=== PATIENT | female | born 1935 | race Caucasian/White ===

== ENCOUNTER 2021-12-26 12:35 | Emergency (ER) | payer MEDICARE, OTHER, SELFPAY ==
[2021-12-26 12:40] VITALS: BP 116/81; PULSE 75; RESP 16; TEMP 36.6; O2SAT 93; BMI 28.3
--- NOTE | 2021-12-26 12:59 | ECG_ITS ---
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 Measurements Intervals [place] Rate: 75 P: 67 OR: 158 QRS: -63 QRSD: 84 T: 17 QT: 413 QTc: 462 Interpretive Statements SINUS RHYTHM PATTERN CONSISTENT WITH PULMONARY DISEASE LEFT ANTERIOR FASCICULAR BLOCK [QRS AXIS <= -45, QR IN I, RS IN II] No previous ECG available for comparison Electronically Signed On 12-26-2021 19:25:47 CDT by Ayaka Gomez M.D. [id number]
--- NOTE | 2021-12-26 12:59 | CT_ITS ---
WS: [id number] CT HEAD TECHNIQUE: Noncontrast CT of the head obtained from the skullbase to the vertex. CLINICAL INFORMATION: Symptoms of Acute Stroke COMPARISON: MRI and CT 2010 DLP: 1081.[address] scans at [facility] use at least one of these dose optimization techniques: automated e xposure control; mA and/or kV adjustment per patient size (includes targeted exams where dose is matc hed to clinical indication); or iterative reconstruction. FINDINGS: No evidence of intracranial hemorrhage or mass effect. Ventricular system and basal cisterns are vázquez nt. Moderate small vessel changes with moderate parenchymal volume loss. Chronic lacunar infarcts in the basal ganglia. Chronic appearing intracranial vascular calcification No extra-axial fluid collec tions. Paranasal sinuses and mastoid air cells are well aerated. .Normal visualized soft tissues. CT/CT head wo con* [id number] IMPRESSION: 1. No evidence of intracranial hemorrhage or mass effect. 2. Moderate small vessel changes with moderate parenchymal volume loss. 3. Dense intracranial vascular calcification. 4. No acute intracranial findings. Notified Galileo Choudhary DO at 12/26/2021 1:50PM.
[2021-12-26 13:09] LABS: Basophils # 0.1 10^3/uL (0.0-0.1); Eosinophils # 0.5 10^3/uL (0.0-0.8); Eosinophils % 6.9 %; Hematocrit 35.8 % (37.0-47.0); Hemoglobin 11.4 g/dL (11.5-15.3); Lymphocytes # 1.5 10^3/uL (0.8-4.8); Lymphocytes % 20.7 %; Mean Corpuscular HGB Conc 31.8 g/dL (30.0-36.0); Mean Corpuscular Volume 97.3 fl (81-99); Mean Platelet Volume 11.6 fL (7.4-10.4); Monocytes # 0.5 10^3/uL (0.2-0.9); Monocytes % 7.1 %; Neutrophils # 4.61 10^3/uL (1.8-7.7); Nucleated Red Blood Cells % 0 %; Platelet Count 161 10^3/cmm (130-400); Red Blood Count 3.68 10^6/uL (4.1-5.3); Red Cell Distribution Width 12.7 % (12.1-15.1); White Blood Count 7.2 10^3/uL (4.0-10.0)
--- NOTE | 2021-12-26 13:09 | ED_ITS ---
HPI - Syncope General: Chief Complaint: Syncope Stated Complaint: N Time Seen by Provider: 12/26/21 12:35 Source: patient Mode of arrival: EMS Limitations: altered mental status History of Present Illness: 86-year-old female who [facility] the emergency room [facility] prison after a near syncopal episode outside of the prison. She is mildly demented she tells me she was at work when this happened. She also tells me she previously had a stroke and has limited use of her left leg. Were calling to confirm if this is an old deficit or new. I did find in the old records that she previously had a left hip fracture and had ORIF. She denies any pain or discomfort now. Her only complaint is that she is cold she denies shortness of breath or chest pain. She has no significant deficit beyond the weakness that is in her left leg. MD complaint: loss of consciousness and almost passed out Treatments prior to arrival: none Course Vital Signs: Vital signs: Vital Signs Temperature 98 F 12/26/21 12:40 Pulse Rate 75 12/26/21 12:40 Respiratory Rate 16 12/26/21 12:40 Blood Pressure 116/81 12/26/21 12:40 Pulse Oximetry 93 12/26/21 12:40 MDM - Syncope Medical Decision Making Suspect patient had a syncopal episode while outside likely due to heat exposure. We will go ahead and discharge her back to the prison no change in medications at this time. Incidental finding of a laryngeal mass which we will refer her to ENT for. Lab Data : 12/26/21 12:46 12/26/21 12:[address] 12/26/21 12:59 IMPRESSION: 1. No evidence of intracranial hemorrhage or mass effect. 2. Moderate small vessel changes with moderate parenchymal volume loss. 3. Dense intracranial vascular calcification. 4. No acute intracranial findings. Notified Galileo Choudhary DO at 12/26/2021 1:50PM. Laboratory Results WBC 7.2 10^3/uL (4.0-10.0) 12/26/21 12:46 RBC 3.68 10^6/uL (4.1-5.3) L 12/26/21 12:46 Hgb 11.4 g/dL (11.5-15.3) L 12/26/21 12:46 Hct 35.8 % (37.0-47.0) L 12/26/21 12:46 MCV 97.3 fl (81-99) 12/26/21 12:46 MCH 31.0 pg (28.0-34.0) 12/26/21 12:46 MCHC 31.8 g/dL (30.0-36.0) 12/26/21 12:46 RDW 12.7 % (12.1-15.1) 12/26/21 12:46 Plt Count 161 10^3/cmm (130-400) 12/26/21 12:46 MPV 11.6 fL (7.4-10.4) H 12/26/21 12:46 Neut % (Auto) 64.0 % 12/26/21 12:46 Lymph % (Auto) 20.7 % 12/26/21 12:46 [place] % (Auto) 7.1 % 12/26/21 12:46 Eos % (Auto) 6.9 % 12/26/21 12:46 Baso % (Auto) 1.0 % 12/26/21 12:46 Neut # (Auto) 4.61 10^3/uL (1.8-7.7) 12/26/21 12:46 Lymph # (Auto) 1.5 10^3/uL (0.8-4.8) 12/26/21 12:46 [place] # (Auto) 0.5 10^3/uL (0.2-0.9) 12/26/21 12:46 Eos # (Auto) 0.5 10^3/uL (0.0-0.8) 12/26/21 12:46 Baso # (Auto) 0.1 10^3/uL (0.0-0.1) 12/26/21 12:46 Nucleated RBC % (auto) 0 % 12/26/21 12:46 Nucleated RBCs # 0.0 /100WBC 12/26/21 12:46 Sodium 143 mmol/L (136-145) 12/26/21 12:46 Potassium 3.7 mmol/L (3.5-5.1) 12/26/21 12:46 Chloride 111 mmol/L (98-107) H 12/26/21 12:46 Carbon Dioxide 23 mmol/L (22-29) 12/26/21 12:46 Anion Gap 12.7 (5-19) 12/26/21 12:46 BUN 20 mg/dL (8-23) 12/26/21 12:46 Creatinine 1.0 mg/dL (0.5-0.9) H 12/26/21 12:46 GFR Calculation Not Reportable 12/26/21 12:46 Glucose 104 mg/dL (65-115) 12/26/21 12:46 POC Glucose 139 mg/dL (70-110) H 12/26/21 13:41 Calculated Osmolality 299 mOsm/kg (285-295) H 12/26/21 12:46 Calcium 8.1 mg/dL (8.5-10.5) L 12/26/21 12:46 Total Bilirubin 0.3 mg/dL (0.15-1.2) 12/26/21 12:46 AST 25 U/L (0-32) 12/26/21 12:46 ALT 15 U/L (0-33) 12/26/21 12:46 Alkaline Phosphatase 93 IU/L (35-105) 12/26/21 12:46 Total Protein 6.3 g/dL (6.6-8.7) L 12/26/21 12:46 Albumin 3.1 g/dL (3.5-5.2) L 12/26/21 12:46 Globulin 3.2 g/dL (1.3-4.6) 12/26/21 12:46 Discharge Plan Discharge Patient Disposition: Home Clinical Impression: Syncope, Laryngeal mass, Dementia Condition: Stable Prescriptions: No Action Multi-Vitamin Tablet 1 tab PO QAM 0RF atorvastatin 40 mg tablet 40 mg PO QPM 0RF acetaminophen 325 mg Tablet 325 mg PO Q6H PRN (Reason: Pain) 0RF [place] 5-325 mg Tablet 1 tab PO Q6H PRN (Reason: Pain) 0RF clonazepam 1 mg tablet 1 mg PO QPM 0RF Aspir-Low 81 mg Tablet,Delayed Release (Dr/Ec) 81 mg PO DAILY 0RF levothyroxine 100 mcg tablet 100 mcg PO DAILY 0RF Milk of Magnesia 400 mg/5 mL Suspension 30 ml PO DAILY PRN (Reason: Constipation) 0RF pantoprazole 40 mg tablet,delayed release (DR/EC) 40 mg PO DAILY 0RF nitrofurantoin macrocrystal 100 mg capsule 100 mg PO QPM 0RF lidocaine 5 % Adhesive Patch,Medicated 1 patch TOPICAL 2XD 0RF Rx Instructions: leave on most painful area for up to 12 hrs bisacodyl 5 mg Tablet,Delayed Release (Dr/Ec) 5 mg PO DAILY PRN (Reason: Constipation) 0RF Remeron 15 mg Tablet 7.5 mg PO DAILY 0RF Miralax 17 gram/dose Powder 4 g PO DAILY 0RF Acidophilus Capsule 100 mg PO QPM PRN (Reason: Constipation) 0RF melatonin 1 mg Tablet 1 mg PO QPM 0RF Fish Oil 500 mg Capsule 500 mg PO DAILY 0RF cholecalciferol (vitamin D3) 125 mcg (5,000 unit) Tablet 125 mcg PO DAILY 0RF Discharge Orders: Discharge ED (Routine); Ordered 12/26/21 Ordered By: Galileo Choudhary Discharge Diet: Usual diet Discharge Activity: Resume usual activity Activity Restrictions/Additional Instructions: There is no evidence of acute stroke on any of your scans you will be discharged home with the same medications. Suspect that the episode you experience was a syncopal episode. Incidental finding of a mass within the voicebox will make arrangements for you to see ENT to follow-up on this. Coding Level of Care Code ED Dental Sales Representative for Miri Russell NIH stroke score NIHSS Level Of Consciousness - 1a: 0 Level Of Consciousness Questions - 1b: Both Correct Level Of Consciousness Commands - 1c: One Correct Best Gaze - 2: Normal Visual [place] - 3: No Visual Loss Facial Palsy - 4: Normal Motor Arm Right - 5: No Drift Motor Arm Left - 5: No Drift Motor Leg Right - 6: No Drift Motor Leg Left - 6: Drift (Weakness) Limb Ataxia - 7: Present In One Limb Sensory - 8: Normal Best Language - 9: No Aphasia Dysarthia - 10: Normal Extinction And Inattention - 11: 0 Score Total Score: 3
--- NOTE | 2021-12-26 13:20 | PC.NURSE ---
PT PLACED ON CONTINUOUS NIBP, SPO2, AND CM
[2021-12-26 13:21] LABS: Alanine Aminotransferase 15 U/L (0-33); Albumin Level 3.1 g/dL (3.5-5.2); Alkaline Phosphatase 93 IU/L (35-105); Anion Gap 12.7 (5-19); Aspartate Amino Transferase 25 U/L (0-32); Blood Urea Nitrogen 20 mg/dL (8-23); Calcium 8.1 mg/dL (8.5-10.5); Carbon Dioxide 23 mmol/L (22-29); Chloride 111 mmol/L (98-107); Globulin 3.2 g/dL (1.3-4.6); Glucose 104 mg/dL (65-115); Osmolality Calculated 299 mOsm/kg (285-295); Potassium 3.7 mmol/L (3.5-5.1); Sodium 143 mmol/L (136-145); Total Bilirubin 0.3 mg/dL (0.15-1.2); Total Protein 6.3 g/dL (6.6-8.7)
[2021-12-26 13:23] VITALS: BP 120/86; RESP 18; O2SAT 96
[2021-12-26 13:45] LABS: Glucose Point of Care 139 mg/dL (70-110)
[2021-12-26 14:23] VITALS: BP 130/90; O2SAT 92
--- NOTE | 2021-12-26 14:26 | CT_ITS ---
WS: [id number] CTA HEAD AND NECK TECHNIQUE: Contrast enhanced CTA of the head and neck with coronal and sagittal reformatted images an d maximum intensity projection (MIP) images. NASCET criteria utilized. CLINICAL INFORMATION: TIA COMPARISON: None. DLP: 476.[address] scans at [facility] use at least one of these dose optimization techniques: automated e xposure control; mA and/or kV adjustment per patient size (includes targeted exams where dose is matc hed to clinical indication); or iterative reconstruction. FINDINGS: RIGHT: RIGHT common carotid artery is patent. No significant RIGHT ICA stenosis. ICA is patent to the skull base. LEFT: LEFT common carotid artery is patent. No LEFT ICA stenosis. Mild atheromatous plaque LEFT carot id bulb extending into the ICA. LEFT ICA is patent to the skull base. Both vertebral arteries are patent. Codominant vertebral arteries bilaterally. Paranasal sinuses and mastoid air cells well aerated. Normal posterior nasopharynx. Focal enhancing l esion involving the RIGHT false and true vocal cord with localized mass effect. Enhancing lesion iman ures 1.4 x 1.1 x 1.4 CM. Findings suspicious for small neoplasm. Recommend Further evaluation with en doscopy. This extends from the level of the RIGHT piriform sinus to the glottis. Advanced emphysematous changes in the lung apices. Aneurysmal partially visualized ascending and descending thoracic aorta with advanced atheromatous di sease. Proximal descending thoracic aorta measures 3.9 cm in transverse dimension. Ascending thoracic aorta measures 3.4 CM. Moderate spondylitic change cervical spine with multilevel disc space narrowi ng worse at C5-C7. INTRACRANIAL CTA: Proximal basilar artery is patent. Normal vascularity to the MANAGER DOCUMENTATION territory bilaterally. Patent RIGHT posterior communicating artery/persistent RIGHT MANAGER DOCUMENTATION. Both ICAs are patent at the skull base. Mild cavernous carotid calcification. Absent RIGHT A1 segment . Normal vascularity to the JAMAL territory. Normal vascularity to the MCA territories bilaterally. No evidence of flow-limiting stenosis. CT/CT angio headneck* [id number] IMPRESSION: 1. Less than 50% ICA stenosis bilaterally. 2. Codominant and patent vertebral arteries bilaterally. 3. No flow-limiting intracranial stenosis. 4. Normal variant absent RIGHT A1 segment. Normal variant persistent or near p ersistent RIGHT MANAGER DOCUMENTATION. 5. Enhancing submucosal lesion extending from the RIGHT supraglottic larynx at the level of the piriform sinus to the level of the RIGHT true vocal cord. Thi s results in mild mass effect on the glottis and extends to the mucosa. Recomme nd endoscopy in further evaluation. This measures approximately 1.4 x 1.1 x 1.4 CM 6. Aneurysmal partially visualized thoracic aorta with advanced atheromatous d isease as described above Notified Galileo Choudhary DO at 12/26/2021 3:48 PM.
[2021-12-26 15:00] VITALS: BP 132/95; RESP 18; O2SAT 94
[2021-12-26 16:00] VITALS: BP 143/101; PULSE 82; RESP 18; O2SAT 95
[2021-12-26 16:23] LABS: Amphetamines Screen Urine Negative (Negative); Barbiturates Screen Urine Negative (Negative); Benzodiazepines Screen Urine Negative (Negative); Cocaine Screen Urine Negative (Negative); Opiate Screen Urine Positive (Negative); PCP Screen Urine Negative (Negative); THC Screen Urine Negative (Negative)
[2021-12-26 16:24] LABS: Urine Color Yellow (Yellow)
[2021-12-26 16:25] LABS: Add Urine Microscopic? YES; Bilirubin Urine Neg (Negative); Blood Urine Neg (Negative); Glucose Urine UA Norm (Normal); Ketones Urine Negative (Negative); Leukocyte Esterase Urine Trace (Negative); Nitrate Urine Positive (Negative); Protein Urine Neg (Negative); Urine Appearance Cloudy (CLEAR); Urobilinogen Urine Norm (Negative); pH Urine 6.5 (5-7)
[2021-12-26 17:05] VITALS: BP 151/106; PULSE 86; O2SAT 92
[2021-12-26 17:32] LABS: Add Urine Culture? No; Bacteria Urine 1+ /hpf; Calcium Oxalate Crystals Urine 1 /hpf; RBC Urine 0-4 /hpf (0-2); Squamous Epithelial Cell Urine 0-4 /hpf (0-5); WBC Urine 0-4 /hpf (0-5)
--- NOTE | 2021-12-30 13:29 | DCPLANNER ---
Addendum entered by Tania Fernandez 01/13/22 18:01: Patient had a follow up appointment scheduled with ENT - appointment cancelled Original Note: manager loan had message to schedule a follow up appointment for patient with ENT. manager loan sent patients information to the front office staff at ENT. Patients information will be printed and reviewed. Clinic will call patient with appointment information.
== END 2021-12-26 17:06 | disposition home or self-care (01) ==
PROVIDERS: Emergency Provider Family Medicine
DX: R55 Syncope and collapse (principal); J38.7 Other diseases of larynx; F03.90 Unspecified dementia, unspecified severity, without behavioral disturbance, psychotic disturbance, mood disturbance, and anxiety
CPT/HCPCS: 36416; 70450; 70496; 70498; 80053; 80306; 81001; 82962; 85025; 93005; 99285; Q9967

== ENCOUNTER 2022-04-12 19:39 | Emergency (ER) | payer MEDICARE, OTHER, SELFPAY ==
[2022-04-12 19:41] VITALS: BP 136/94; PULSE 99; RESP 18; TEMP 36.7; O2SAT 96; BMI 22.3
--- NOTE | 2022-04-12 19:41 | ED_ITS ---
HPI - Fall General: Chief Complaint: Extremity Injury, Lower Stated Complaint: FALL/R HIP PAIN Time Seen by Provider: 04/12/22 19:41 Limitations: altered mental status History of Present Illness: Ms. Duran is a 86-year-old lady with uncertain past medical history though apparently reported to be strokes presenting to the emergency department due to hip pain secondary to fall. She reports walking and fell for unclear reason. She endorses pain in her right hip especially when walking. Also has some left arm pain. Intensity of symptoms is mild to mod erate and worse with ambulation and palpation. History otherwise limited by patient's mental status with somewhat unclear baseline. Review of Systems General: Reports: ROS unobtainable due to mental status PFSH ED PFSH: Medical History (Updated 04/15/22 @ 19:55 by Rod Garcia MD) Medical history unknown Surgical History (Updated 04/15/22 @ 19:55 by Rod Garcia MD) Surgical history unknown Social History (Updated 04/15/22 @ 19:55 by Rod Garcia MD) Lives independently: No Housing: Snf Physical Exam Const: COMMON NORMALS: alert GENERAL APPEARANCE: cooperative and well developed HENMT: COMMON NORMALS: normocephalic and atraumatic HEAD & SCALP: normocephalic and atraumatic THROAT: posterior oropharynx normal OTHER: No varela signs or raccoon eyes. No hemotympanum. No otorrhea or rhinorrhea. Jaw alignment normal. Dentition baseline. No obvious bony step-offs. No septal hematoma. No evidence of ocular entrapment. Eye: COMMON NORMALS: conjunctivae normal CONJUNCTIVA: Yes conjunctivae normal SCLERA: sclerae normal Neck/C-Spine: COMMON NORMALS: supple GENERAL: Yes trachea midline Resp: COMMON NORMALS: normal respiratory effort EFFORT & INSPECTION: Yes able to speak in complete sentences Cardio: COMMON NORMALS: regular rate and regular rhythm RATE: regular rate RHYTHM: regular rhythm GI: COMMON NORMALS: Soft to palpation PALPATION: Yes Soft to palpation and No Tenderness to palpation present (GI) PERCUSSION: normal to percussion Extremity: NARRATIVE EXTREMITY EXAM: Tender to palpation of right greater trochanter region of the hip. GENERAL: Yes normal exam except as noted and No edema Neuro: COMMON NORMALS: moves all extremities SENSORIUM/ORIENTATION: Yes shakir rt and Yes Orientation impaired Psych: COMMON NORMALS: cooperative Course Vital Signs: Vital signs: Vital Signs Temperature 98.1 F 04/12/22 19:41 Pulse Rate 114 H 04/12/22 23:00 Respiratory Rate 18 04/12/22 23:00 Blood Pressure 167/107 04/12/22 23:00 Pulse Oximetry 95 04/12/22 23:00 Oxygen Delivery Me thod 04/12/22 19:41 MDM - Fall Medical Decision Making 86-year-old lady presenting due to fall. History is significantly limited due to mental status. Head to toe exam performed. EKG notable for sinus rhythm with nonspecific ST segment abnormalities. Laboratory studies with leukocytosis, normal hemoglobin. Metabolic end with likely mild evidence of dehydration. Negative delta troponin. Urinary tract infection present. CT head and cervical spine negative for acute traumatic injury. X-rays negative for acute traumatic injury. CT imaging notable for AAA, fibrotic lung changes, prior cholecystectomy with biliary ductal dilation, and subcutaneous hematoma correlating with region of patient's pain. Incidental CT findings were discussed including AAA and others. Antibiotic given. Patient became agitated and did require medications which had desired therapeutic effect. The results of ED evaluation were discussed with the patient and her family incl uding prescriptions and/or symptomatic cares (if applicable) including appropriate and responsible use, followup plan, and return precautions. I explained that inpatient management would possibly lead to worsening neurologic symptoms and that I feel it is reasonable to trial treatment with oral ant ibiotics. The patient and her family verbalized understanding and felt safe for discharge back to correction. Medical Records I reviewed the patient's medical records. Lab Data I reviewed the patient's lab results. : 04/12/22 20:05 04/12/22 20:05 Radiology Impressions Cervical Spine CT 04/12/22 19:53 IMPRESSION: No acute findings. Chest/Abdomen/Pelvis CT 04/12/22 19:53 IMPRESSION: 1. 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 No significant ascending aortic aneurysm or dissection. 2. Coronary calcification. 3. Mild/early fibrotic changes in the mid and lower lung zones, possibly UIP. No acute thoracic findings otherwise. IMPRESSION: 1. 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 No infrarenal aneurysm. 2. 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 [id number] symmetric bilateral hydronephrosis and hydroureter, probably chronic/postsurgical. Comparison prior study should be obtained if possible. 3. Subcutaneous high-density hematoma in the lateral right trochanteric region. No obvious acute fracture. 4. Significant biliary ductal dilatation which could be related to normal status post cholecystectomy/advanced age. However distal CBD obstruction cannot be excluded. Clinical/LFT correlation should be obtained. Followup imaging may also be considered if clinically indicated. Comparison with previous studies may also be helpful if available. Head CT 04/12/22 19:53 IMPRESSION: Negative for intracranial hemorrhage or mass effect. Hip/Pelvis X-Ray 04/12/22 19:57 IMPRESSION: No acute findings. Humerus X-Ray 04/12/22 19:57 IMPRESSION: No acute findings. Laboratory Results WBC 14.7 10^3/uL (4.0-10.0) H 04/12/22 20:05 RBC 4.12 10^6/uL (4.1-5.3) 04/12/22 20:05 Hgb 12.8 g/dL (11.5-15.3) 04/12/22 20:05 Hct 38.0 % (37.0-47.0) 04/12/22 20:05 MCV 92.2 fl (81-99) 04/12/22 20:05 MCH 31.1 pg (28.0-34.0) 04/12/22 20:05 MCHC 33.7 g/dL (30.0-36.0) 04/12/22 20:05 RDW 12.7 % (12.1-15.1) 04/12/22 20:05 Plt Count 187 10^3/cmm (130-400) 04/12/22 20:05 MPV 12.0 fL (7.4-10.4) H 04/12/22 20:05 Neut % (Auto) 76.3 % 04/12/22 20:05 Lymph % (Auto) 13.8 % 04/12/22 20:05 [place] % (Auto) 8.4 % 04/12/22 20:05 Eos % (Auto) 0.5 % 04/12/22 20:05 Baso % (Auto) 0.5 % 04/12/22 20:05 Neut # (Auto) 11.20 10^3/uL (1.8-7.7) H 04/12/22 20:05 Lymph # (Auto) 2.0 10^3/uL (0.8-4.8) 04/12/22 20:05 [place] # (Auto) 1.2 10^3/uL (0.2-0.9) H 04/12/22 20:05 Eos # (Auto) 0.1 10^3/uL (0.0-0.8) 04/12/22 20:05 Baso # (Auto) 0.1 10^3/uL (0.0-0.1) 04/12/22 20:05 Nucleated RBC % (auto) 0 % 04/12/22 20:05 Nucleated RBCs # 0.0 /100WBC 04/12/22 20:05 Sodium 131 mmol/L (136-145) L 04/12/22 20:05 Potassium 3.8 mmol/L (3.5-5.1) 04/12/22 20:05 Chloride 99 mmol/L (98-107) 04/12/22 20:05 Carbon Dioxide 23 mmol/L (22-29) 04/12/22 20:05 Anion Gap 12.8 (5-19) 04/12/22 20:05 BUN 28 mg/dL (8-23) H 04/12/22 20:05 Creatinine 1.1 mg/dL (0.5-0.9) H 04/12/22 20:05 GFR Calculation Not Reportable 04/12/22 20:05 Glucose 116 mg/dL (65-115) H 04/12/22 20:05 Calculated Osmolality 278 mOsm/kg (285-295) L 04/12/22 20:05 Calcium 9.4 mg/dL (8.5-10.5) 04/12/22 20:05 Total Bilirubin 0.5 mg/dL (0.15-1.2) 04/12/22 20:05 AST 16 U/L (0-32) 04/12/22 20:05 ALT 9 U/L (0-33) 04/12/22 20:05 Alkaline Phosphatase 114 U/L (35-105) H 04/12/22 20:05 Troponin T Baseline 17 ng/L (0-10) H 04/12/22 20:05 Troponin T 120 Minute 16.07 ng/L (0-10) H 04/12/22 21:50 Delta Troponin T -0.93 ABS# (0-10) L 04/12/22 21:50 Total Protein 7.2 g/dL (6.6-8.7) 04/12/22 20:05 Albumin 3.4 g/dL (3.5-5.2) L 04/12/22 20:05 Globulin 3.8 g/dL (1.3-4.6) 04/12/22 20:05 Lipase 70 U/L (13-60) H 04/12/22 20:05 Urine Color Yellow (Yellow) 04/12/22 21:18 Urine Appearance Cloudy (CLEAR) A 04/12/22 21:18 Urine pH 9 (5-7) H 04/12/22 21:18 Ur Specific [place] 1.010 (1.005-1.030) 04/12/22 21:18 Urine Protein Neg (Negative) 04/12/22 21:18 Urine Glucose (UA) Norm (Normal) 04/12/22 21:18 Urine Ketones Negative (Negative) 04/12/22 21:18 Urine Blood 2+ (Negative) H 04/12/22 21:18 Urine Nitrate Positive (Negative) H 04/12/22 21:18 Urine Bilirubin Neg (Negative) 04/12/22 21:18 Prot Sulfosalicylic Acd Negative (Negative) 04/12/22 21:18 Urine Urobilinogen Neg mg/dL (Negative) 04/12/22 21:18 Ur Leukocyte Esterase 2+ (Negative) H 04/12/22 21:18 Urine RBC 10-15 /hpf (0-2) H 04/12/22 21:18 Urine WBC 5-10 /hpf (0-5) H 04/12/22 21:18 Ur Squamous Epith Cells 0-4 /hpf (0-5) H 04/12/22 21:18 Triple Phos Crystals Rare /hpf 04/12/22 21:18 Amorphous Sediment Not Reportable 04/12/22 21:18 Urine Bacteria 3+ /hpf (NONE) H 04/12/22 21:18 Discharge Plan Discharge Patient Disposition: Home Clinical Impression: Contusion of hip, Fall, AAA (abdominal aortic aneurysm) without rupture, Dilat ed bile duct, Acute UTI, Dehydration, mild, Hydroureteronephrosis, Hematoma of right hip Condition: Stable Prescriptions: New nitrofurantoin macrocrystal 100 mg capsule 100 mg PO BID 5 Days Qty: 10 0RF Rx Instructions: must administer with a meal/food No Action Multi-Vitamin Tablet 1 tab PO QAM atorvastatin 40 mg tablet 40 mg PO QPM acetaminophen 325 mg Tablet 325 mg PO Q6H PRN (Reason: Pain) [place] 5-325 mg Tablet 1 tab PO Q6H PRN (Reason: Pain) clonazepam 1 mg tablet 1 mg PO QPM Aspir-Low 81 mg Tablet,Delayed Release (Dr/Ec) 81 mg PO DAILY levothyroxine 100 mcg tablet 100 mcg PO DAILY Milk of Magnesia 400 mg/5 mL Suspension 30 ml PO DAILY PRN (Reason: Constipation) pantoprazole 40 mg tablet,delayed release (DR/EC) 40 mg PO DAILY nitrofurantoin macrocrystal 100 mg capsule 100 mg PO QPM lidocaine 5 % Adhesive Patch,Medicated 1 patch TOPICAL 2XD Rx Instructions: leave on most painful area for up to 12 hrs bisacodyl 5 mg Tablet,Delayed Release (Dr/Ec) 5 mg PO DAILY PRN (Reason: Constipation) Remeron 15 mg Tablet 7.5 mg PO DAILY Miralax 17 gram/dose Powder 4 g PO DAILY Acidophilus Capsule 100 mg PO QPM PRN (Reason: Constipation) melatonin 1 mg Tablet 1 mg PO QPM Fish Oil 500 mg Capsule 500 mg PO DAILY cholecalciferol (vitamin D3) 125 mcg (5,000 unit) Tablet 125 mcg PO DAILY Discharge Orders: Discharge ED (Routine); Ordered 04/12/22 Ordered By: Rod Garcia Discharge Diet: Usual diet Discharge Activity: Increase activity as tolerated Patient Instructions: Nonruptured Abdominal Aortic Aneurysm (DC), Fall Prevention for Older Adults (ED), Contusion in Adults (ED), Urinary Tract Inf ection in Older Adults (ED), Pain Management Activity Restrictions/Additional Instructions: Thank you for visiting the emergency department. You were seen and evaluated for hip pain after fall. No acute broken bone was identified. You do have a contusion/hematoma in this region which likely explains your discomfort. The treatment for contusions is largely supportive and I would expect improvement in the next few days. Incidentally you were found to have a urinary tract infection which will be treated with antibiotics. Incidental imaging findings include Aneurysmal dilatation of the thoracoabdominal aortic junction/upper abdominal aorta measuring up to 4.7 by 4.5 cm.? Additionally there is mild to moderate symmetric bilateral hydronephrosis and hydroureter which is reportedly probably chronic. Additionally there is significant biliary ductal dilation which could be normal after cholecystectomy or advanced age. Given normal liver enzymes and absence of right upper quadrant abdominal tenderness I do not feel that additional imaging is needed at this time. Radiology does recommend follow-up and comparison of imaging to prior if available. Please follow-up with your primary care provider in the next 1 to 3 days. Regarding your aortic aneurysm you should follow-up either with primary care provider or a vascular surgeon for repeat screening. The estimated 5-year risk of rupture is estimated to be roughly 3 to 12%. Rupture of abdominal aortic aneurysm is frequently fatal. 6-month follow-up or sooner for aorta ultrasound is recommended. You may also be referred for vascular surgery consultation as any surgical procedure at your age carries risk and risk of rupture compared to risk of treatment should be weighed carefully. Return to the emergency department for right upper quadrant pain, chest pain, shortness of breath, inability to urinate, uncontrolled pain, recurrent falls, or anything else that you are concerned about a feel needs emergency department evaluation. Coding Level of Care Code ED Batch Operator for Miri Russell Exam Comprehensive
--- NOTE | 2022-04-12 19:53 | CTR_ITS ---
PROCEDURE INFORMATION: Exam: CT Cervical Spine Without Contrast Exam date and time: 04/12/2022 8:32 PM Age: 86 years old Clinical indication: Injury or trauma; Blunt trauma; Patient HX: Patient brought via EMS from half-way for fall. Patient states she doesn't remember why she fell but focally compalins of RT hip and left humeral pain. Patient has history of stroke and dementia. Limited history. ; Additional info: Fall, AMS TECHNIQUE: Imaging protocol: Computed tomography of the cervical spine without contrast. Radiation optimization: All CT scans at this facility use at least one of these dose optimization techniques: automated exposure control; mA and/or kV adjustment per patient size (includes targeted exams where dose is matched to clinical indication); or iterative reconstruction. COMPARISON: CT angio headneck* [id number] 12/26/2021 3:11 PM RADIATION DOSE METRICS: Total DLP (mGy-cm): 236.9 FINDINGS: Bones/joints: No acute fracture. Normal alignment. C2-C3: No significant disc protrusion. No severe spinal canal stenosis. No significant neural foraminal narrowing. C3-C4: No significant disc protrusion. No severe spinal canal stenosis. No significant neural foraminal narrowing. C4-C5: No significant disc protrusion. No severe spinal canal stenosis. No significant neural foraminal narrowing. C5-C6: No significant disc protrusion. No severe spinal canal stenosis. No significant neural foraminal narrowing. C6-C7: No significant disc protrusion. No severe spinal canal stenosis. No significant neural foraminal narrowing. C7-T1: No significant disc protrusion. No severe spinal canal stenosis. No significant neural foraminal narrowing. Lungs: Lung apices are normal. Soft tissues: Unremarkable. CT/CT cervical spin wo con* [id number] IMPRESSION: No acute findings.
--- NOTE | 2022-04-12 19:53 | CTR_ITS ---
PROCEDURE INFORMATION: Exam: CT Chest With Contrast; Diagnostic Exam date and time: 04/12/2022 8:39 PM Age: 86 years old Clinical indication: Injury or trauma; Generalized; Blunt trauma (contusions or hematomas); Patient HX: Patient brought via EMS from long term for fall. Patient states she doesn't remember why she fell but focally compalins of RT hip and left humeral pain. Patient has history of stroke and dementia. Limited history. ; Additional info: Fall, AMS TECHNIQUE: Imaging protocol: Diagnostic computed tomography of the chest with contrast. Radiation optimization: All CT scans at this facility use at least one of these dose optimization techniques: automated exposure control; mA and/or kV adjustment per patient size (includes targeted exams where dose is matched to clinical indication); or iterative reconstruction. Contrast material: OMNI 350; Contrast volume: 100 ml; Contrast route: INTRAVENOUS (IV); COMPARISON: CR XR chest 2V* [id number] 10/22/2016 3:43 PM RADIATION DOSE METRICS: Total DLP (mGy-cm): 869.86 FINDINGS: Lungs: Mild/early fibrotic changes in the mid and lower lung zones. No acute lung consolidation/contusion or ground-glass opacity. Pleural spaces: Unremarkable. No pneumothorax. No pleural effusion. Heart: Normal heart size with coronary calcification. No thoracic aneurysm or dissection. There is intramural thrombus within the descending aorta with diffuse intimal thickening and small calcified plaques. There is diffuse aneurysmal dilatation of the thoracoabdominal aortic junction/upper abdominal aorta measuring up to 4.7 by 4.5 cm at the diaphragmatic hiatus. Ascending aorta measures maximally 3.6 cm. Lymph nodes: No enlarged lymph nodes. Vasculature: See Heart finding. Bones/joints: No acute findings. Soft tissues: No acute findings. PROCEDURE INFORMATION: Exam: CT Abdomen And Pelvis With Contrast Exam date and time: 04/12/2022 8:39 PM Age: 86 years old Clinical indication: Injury or trauma; Generalized; Blunt trauma (contusions or hematomas); Patient HX: Patient brought via EMS from long term for fall. Patient states she doesn't remember why she fell but focally compalins of RT hip and left humeral pain. Patient has history of stroke and dementia. Limited history. ; Additional info: Fall, AMS TECHNIQUE: Imaging protocol: Computed tomography of the abdomen and pelvis with contrast. Radiation optimization: All CT scans at this facility use at least one of these dose optimization techniques: automated exposure control; mA and/or kV adjustment per patient size (includes targeted exams where dose is matched to clinical indication); or iterative reconstruction. Contrast material: OMNI 350; Contrast volume: 100 ml; Contrast route: INTRAVENOUS (IV); COMPARISON: CR (PELVIS, ) 04/12/2022 8:25 PM RADIATION DOSE METRICS: Total DLP (mGy-cm): 869.86 FINDINGS: Liver: Normal. No mass. Gallbladder and bile ducts: Cholecystectomy clips. Rsdl-lm-devtqtdo intrahepatic bile duct dilatation. Diffuse moderate-severe extrahepatic bile duct dilatation with proximal CBD measuring 22 mm and distal CBD measuring 10 mm. No calcified intraductal calculi. Pancreas: Mild pancreatic atrophy with no obvious pancreatic ductal dilatation. Spleen: Normal. No splenomegaly. Adrenal glands: Normal. No mass. Kidneys and ureters: See Urinary bladder finding. Stomach and bowel: Unremarkable. No obstruction. No mucosal thickening. Appendix: No evidence of appendicitis. Intraperitoneal space: Unremarkable. No free air. No significant fluid collection. Vasculature: There is diffuse aneurysmal dilatation of the thoracoabdominal aortic junction/upper abdominal aorta measuring up to 4.7 by 4.5 cm.Extensive aortoiliac calcifications without infrarenal aneurysm. Lymph nodes: No enlarged lymph nodes. Urinary bladder: Evidence of previous cystectomy. Presumed ureteral/enterotomy diversions with right periumbilical ileostomy.. There is yiid-uv-tlqoinmt bilateral hydronephrosis and proximal hydro ureters. No suspicious renal mass however assessment is limited due to motion artifacts. Reproductive: Unremarkable as visualized. Bones/joints: Metallic surgical hardware in left proximal femur resulting in streak artifacts partially obscuring adjacent anatomy. Osteopenia. Multilevel vertebral disc degeneration and endplate osteophytes. No acute osseous findings otherwise. Heterotopic ossification around the left trochanteric region. Soft tissues: There is a discrete hyperdense subcutaneous collection/hematoma in the lateral trochanteric region on the right measuring 3.2 x 2.4 transverse and [address]/CT chest abd pel w con* IMPRESSION: 1. 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 No significant ascending aortic aneurysm or dissection. 2. Coronary calcification. 3. Mild/early fibrotic changes in the mid and lower lung zones, possibly UIP. No acute thoracic findings otherwise. IMPRESSION: 1. 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 No infrarenal aneurysm. 2. 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 Blfr-ej-eeubxknb symmetric bilateral hydronephrosis and hydroureter, probably chronic/postsurgical. Comparison prior study should be obtained if possible. 3. Subcutaneous high-density hematoma in the lateral right trochanteric region. No obvious acute fracture. 4. Significant biliary ductal dilatation which could be related to normal status post cholecystectomy/advanced age. However distal CBD obstruction cannot be excluded. Clinical/LFT correlation should be obtained. Followup imaging may also be considered if clinically indicated. Comparison with previous studies may also be helpful if available.
--- NOTE | 2022-04-12 19:53 | CTR_ITS ---
PROCEDURE INFORMATION: Exam: CT Head Without Contrast Exam date and time: 04/12/2022 8:32 PM Age: 86 years old Clinical indication: Injury or trauma; Blunt trauma (contusions or hematomas); Patient HX: Patient brought via EMS from [facility] for [facility]. Patient states she doesn't remember why she fell but focally compalins of RT hip and left humeral pain. Patient has history of stroke and dementia. Limited history. ; Additional info: Fall, AMS TECHNIQUE: Imaging protocol: Computed tomography of the head without contrast. Radiation optimization: All CT scans at this facility use at least one of these dose optimization techniques: automated exposure control; mA and/or kV adjustment per patient size (includes targeted exams where dose is matched to clinical indication); or iterative reconstruction. COMPARISON: CT head wo con* [id number] 12/26/2021 1:15 PM RADIATION DOSE METRICS: Total DLP (mGy-cm): 1196.9 FINDINGS: Brain: Large amount of diffuse white matter disease likely reflecting chronic microvascular ischemic changes. Cerebral ventricles: No ventriculomegaly. Paranasal sinuses: Visualized sinuses are unremarkable. No fluid levels. Mastoid air cells: Visualized mastoid air cells are well aerated. Bones/joints: Unremarkable. No acute fracture. Soft tissues: Unremarkable. CT/CT head wo con* [id number] IMPRESSION: Negative for intracranial hemorrhage or mass effect.
--- NOTE | 2022-04-12 19:54 | ECG_ITS ---
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 Measurements Intervals [place] Rate: 102 P: 5 KS: 131 QRS: -46 QRSD: 85 T: -3 QT: 357 QTc: 467 Interpretive Statements SINUS TACHYCARDIA PATTERN CONSISTENT WITH PULMONARY DISEASE LEFT ANTERIOR FASCICULAR BLOCK [QRS AXIS <= -45, QR IN I, RS IN II] Compared to ECG 12/26/2021 13:41:32 Sinus rhythm no longer present Electronically Signed On 04-14-2022 23:00:28 CDT by Sonam Herbert M.D. [id number]
--- NOTE | 2022-04-12 19:57 | XRR_ITS ---
PROCEDURE INFORMATION: Exam: XR Right Hip Exam date and time: 04/12/2022 8:25 PM Age: 86 years old Clinical indication: Injury or trauma; Blunt trauma (contusions or hematomas); Right; Patient HX: Patient brought via EMS from care home for fall. Patient states she doesn't remember why she fell but focally compalins of RT hip and left humeral pain. Patient has history of stroke and dementia. Limited history. ; Additional info: Fall, pain TECHNIQUE: Imaging protocol: Radiologic exam of the Right hip. Views: 1 view hip with pelvis when performed. COMPARISON: No relevant prior studies available. FINDINGS: Bones/joints: Probable osteopenia. No acute fracture. Two views submitted. Minimal acetabular spurring. Mild chronic productive changes at the symphysis pubis. Soft tissues: Unremarkable. XR/XR hip RT 2-3V wo/w pel* [id number] IMPRESSION: No acute findings.
--- NOTE | 2022-04-12 19:57 | XRR_ITS ---
PROCEDURE INFORMATION: Exam: XR Left Humerus Exam date and time: 04/12/2022 8:23 PM Age: 86 years old Clinical indication: Injury or trauma; Blunt trauma (contusions or hematomas); Arm, upper; Patient HX: Patient [facility] EMS from [facility] for fall. Patient states she doesn't remember why she fell but focally compalins of RT hip and left humeral pain. Patient has history of stroke and dementia. Limited history. ; Additional info: Fall, pain TECHNIQUE: Imaging protocol: Radiologic exam of the Left humerus. Views: 2 or more views. COMPARISON: CT angio headarck* [id number] 12/26/2021 3:11 PM FINDINGS: Bones/joints: Probable osteopenia. No acute fracture dislocation. Soft tissues: Overlying garment artifacts. Probably normal otherwise. Other findings: Two views submitted. XR/[place] [id number] IMPRESSION: No acute findings.
[2022-04-12 20:22] LABS: Basophils # 0.1 10^3/uL (0.0-0.1); Basophils % 0.5 %; Eosinophils # 0.1 10^3/uL (0.0-0.8); Eosinophils % 0.5 %; Hemoglobin 12.8 g/dL (11.5-15.3); Lymphocytes % 13.8 %; Mean Corpuscular HGB Conc 33.7 g/dL (30.0-36.0); Mean Corpuscular Hemoglobin 31.1 pg (28.0-34.0); Mean Corpuscular Volume 92.2 fl (81-99); Monocytes # 1.2 10^3/uL (0.2-0.9); Monocytes % 8.4 %; Neutrophils % 76.3 %; Nucleated Red Blood Cells % 0 %; Platelet Count 187 10^3/cmm (130-400); Red Blood Count 4.12 10^6/uL (4.1-5.3); Red Cell Distribution Width 12.7 % (12.1-15.1); White Blood Count 14.7 10^3/uL (4.0-10.0)
[2022-04-12 20:43] LABS: Alanine Aminotransferase 9 U/L (0-33); Albumin Level 3.4 g/dL (3.5-5.2); Alkaline Phosphatase 114 U/L (35-105); Anion Gap 12.8 (5-19); Aspartate Amino Transferase 16 U/L (0-32); Blood Urea Nitrogen 28 mg/dL (8-23); Calcium 9.4 mg/dL (8.5-10.5); Carbon Dioxide 23 mmol/L (22-29); Chloride 99 mmol/L (98-107); Globulin 3.8 g/dL (1.3-4.6); Glucose 116 mg/dL (65-115); Osmolality Calculated 278 mOsm/kg (285-295); Potassium 3.8 mmol/L (3.5-5.1); Sodium 131 mmol/L (136-145); Total Bilirubin 0.5 mg/dL (0.15-1.2); Total Protein 7.2 g/dL (6.6-8.7)
[2022-04-12 20:45] LABS: Troponin(5th) Baseline 17 ng/L (0-10)
[2022-04-12] MEDS: iohexol 350 mg/mL 100 mL Btl IV (20:47)
[2022-04-12 21:33] VITALS: BP 128/92; PULSE 91; RESP 18; O2SAT 94
--- NOTE | 2022-04-12 21:47 | ECG_ITS ---
[facility] Test Date: 2022-04-12 Pat Name: Esperanza Duran Department: Room: Gender: Female Goal Umpire: : 1935 Requested By: Rod Garcia Order Number: [id number] David MD: Sonam Herbert M.D. Measurements Intervals [place] Rate: 95 P: 11 SD: 138 QRS: -49 QRSD: 86 T: 6 QT: 375 QTc: 473 Interpretive Statements SINUS RHYTHM PATTERN CONSISTENT WITH PULMONARY DISEASE LEFT ANTERIOR FASCICULAR BLOCK [QRS AXIS <= -45, QR IN I, RS IN II] Compared to ECG 04/12/2022 19:58:49 Sinus tachycardia no longer present Electronically Signed On 04-14-2022 23:12:22 CDT by Sonam Herbert M.D. [id number]
[2022-04-12 21:49] LABS: Add Urine Microscopic? YES; Bilirubin Urine Neg (Negative); Blood Urine 2+ (Negative); Glucose Urine UA Norm (Normal); Ketones Urine Negative (Negative); Leukocyte Esterase Urine 2+ (Negative); Nitrate Urine Positive (Negative); Protein Urine Neg (Negative); Sulfosalicylic Acid Urine Negative (Negative); Urine Appearance Cloudy (CLEAR); Urine Color Yellow (Yellow); Urobilinogen Urine Neg (Negative); pH Urine 9 (5-7)
[2022-04-12 21:51] LABS: Add Urine Culture? Yes; Bacteria Urine 3+ /hpf; Squamous Epithelial Cell Urine 0-4 /hpf (0-5); Triple Phosphate Crystal Urine RARE /hpf
[2022-04-12 21:59] LABS: Lipase 70 U/L (13-60)
[2022-04-12 22:00] VITALS: BP 115/89; PULSE 93; RESP 18; O2SAT 95
[2022-04-12] MEDS: nitrofurantoin SR (BID) 100 mg Capsule PO (22:10)
[2022-04-12 22:18] LABS: Troponin 5 2HR 16.07 ng/L (0-10)
[2022-04-12 22:19] LABS: Troponin 5 2HR Delta -0.93 ABS# (0-10)
[2022-04-12 22:30] VITALS: BP 198/115; PULSE 97; RESP 18; O2SAT 97
[2022-04-12] MEDS: haloperidol inj 5 mg/mL INJ 1 mL 1 MG IVP (22:38)
[2022-04-12 23:00] VITALS: BP 167/107; PULSE 114; RESP 18; O2SAT 95
[2022-04-12] MEDS: LORazepam 2 mg/mL INJ 1 mL 1 MG IVP (23:09)
[2022-04-12] MEDS: diphenhydrAMINE 50 mg/mL SDV 1mL 12.5 MG IVP (23:09)
== END 2022-04-12 23:43 | disposition home or self-care (01) ==
PROVIDERS: Emergency Provider Emergency Medicine
DX: S70.01XA Contusion of right hip, initial encounter (principal); W19.XXXA Unspecified fall, initial encounter; I71.40 Abdominal aortic aneurysm, without rupture, unspecified; E86.0 Dehydration; N13.30 Unspecified hydronephrosis; K82.8 Other specified diseases of gallbladder
CPT/HCPCS: 70450; 71260; 72125; 73060; 73502; 74177; 80053; 81001; 83690; 84484; 85025; 87077; 87086; 87186; 93005; 96374; 96375; 99285; J1200; J1630; J2060; Q9967

== ENCOUNTER 2022-11-27 17:36 | Inpatient (IN) | payer MEDICARE, OTHER, MEDICAID, SELFPAY ==
[2022-11-27] VITALS (8 sets, daily range): BP systolic 103–130; BP diastolic 66–100; PULSE 86–133; RESP 16–24; TEMP 36.6–39.1; O2SAT 96–98
--- NOTE | 2022-11-27 17:45 | XRR_ITS ---
PROCEDURE INFORMATION: Exam: XR Chest Exam date and time: 11/27/2022 5:52 PM Age: 87 years old Clinical indication: Shortness of breath; Additional info: Dyspnea TECHNIQUE: Imaging protocol: Radiologic exam of the chest. Views: 1 view. COMPARISON: CT chest abdpel w/*[id number] 04/12/2022 8:39 PM FINDINGS: Lungs: Minor curvilinear atelectasis or scarring at the left lung base. No consolidation. Pleural spaces: Unremarkable. No pleural effusion. No pneumothorax. Heart/Mediastinum: Tortuous/ectatic thoracic aorta again noted. No cardiomegaly. Bones/joints: Unremarkable. XR/XR chest 1V portable [id number] IMPRESSION: No acute findings.
[2022-11-27] MEDS: piperacillin-tazobactam 3.375 GM in sodium chloride 0.9% (plus) 50 ML IV (18:13)
[2022-11-27 18:29] LABS: Basophils # 0.1 10^3/uL (0.0-0.1); Basophils % 0.3 %; Eosinophils % 0.2 %; Hematocrit 44.5 % (37.0-47.0); Hemoglobin 14.4 g/dL (11.5-15.3); Lymphocytes # 1.3 10^3/uL (0.8-4.8); Mean Corpuscular HGB Conc 32.4 g/dL (30.0-36.0); Mean Corpuscular Hemoglobin 29.3 pg (28.0-34.0); Mean Corpuscular Volume 90.4 fl (81-99); Monocytes % 5.1 %; Neutrophils # 16.18 10^3/uL (1.8-7.7); Neutrophils % 86.6 %; Nucleated Red Blood Cells % 0 %; Platelet Count 191 10^3/cmm (130-400); Red Blood Count 4.92 10^6/uL (4.1-5.3); Red Cell Distribution Width 13.9 % (12.1-15.1); White Blood Count 18.7 10^3/uL (4.0-10.0)
--- NOTE | 2022-11-27 18:39 | CTR_ITS ---
PROCEDURE INFORMATION: Exam: CT Head Without Contrast Exam date and time: 11/27/2022 6:54 PM Age: 87 years old Clinical indication: Altered mental status/memory loss; Additional info: AMS TECHNIQUE: Imaging protocol: Computed tomography of the head without contrast. Radiation optimization: All CT scans at this facility use at least one of these dose optimization techniques: automated exposure control; mA and/or kV adjustment per patient size (includes targeted exams where dose is matched to clinical indication); or iterative reconstruction. REPORTING DATA: Count of CT and Cardiac NM exams in prior 12 months: This patient has received 5 known CTs and 0 known cardiac nuclear medicine studies in the 12 months prior to the current study. COMPARISON: CT head wo con* [id number] 04/12/2022 8:32 PM RADIATION DOSE METRICS: Total DLP (mGy-cm): 1106 FINDINGS: Brain: No acute infarct. No hemorrhage. Stable involutional changes of the brain. No mass effect. Cerebral ventricles: Stable ventricular size. No ventriculomegaly. Paranasal sinuses: Visualized sinuses are unremarkable. No fluid levels. Mastoid air cells: Visualized mastoid air cells are well aerated. Bones/joints: Unremarkable. No acute fracture. Soft tissues: Unremarkable. CT/CT head wo con* [id number] IMPRESSION: No acute intracranial abnormality.
[2022-11-27 18:46] LABS: Alanine Aminotransferase 11 U/L (0-33); Albumin Level 3.8 g/dL (3.5-5.2); Alkaline Phosphatase 98 U/L (35-105); Anion Gap 16.3 (5-19); Aspartate Amino Transferase 20 U/L (0-32); Blood Urea Nitrogen 40 mg/dL (8-23); Carbon Dioxide 23 mmol/L (22-29); Chloride 101 mmol/L (98-107); Globulin 3.8 g/dL (1.3-4.6); Glucose 138 mg/dL (65-115); Osmolality Calculated 294 mOsm/kg (285-295); Potassium 4.3 mmol/L (3.5-5.1); Sodium 136 mmol/L (136-145); Total Bilirubin 0.8 mg/dL (0.15-1.2); Total Protein 7.6 g/dL (6.6-8.7)
--- NOTE | 2022-11-27 19:13 | W.ED.FEMALGU ---
HPI - Female Genitourinary General: Chief complaint: Urogenital-Female Stated complaint: UTI, sepsis Time Seen by Provider: 11/27/22 17:38 Source: EMS Mode of arrival: EMS Limitations: altered mental status History of Present Illness: 87-year-old female who is here from custodial she had a history of bladder cancer does have a urostomy she not on any treatment currently for the bladder believe she is likely in remission. She is sent here from custodial due to fever she had a temperature 102.3 also some hypotension at the nursing her blood pressure here has been normal. They are concerned about a UTI she has had some altered mental status from her baseline she is unable answer any questions for me she is able to follow some commands. Review of Systems General: Reports: ROS unobtainable due to mental status PFSH ED PFSH: Medical History Medical history unknown Surgical History Surgical history unknown Social History Lives independently: No Housing: Longterm Physical Exam Const: COMMON NORMALS: negative for patient oriented x3 GENERAL APPEARANCE: ill appearing HENMT: COMMON NORMALS: normocephalic and atraumatic HEAD & SCALP: normocephalic and atraumatic Eye: COMMON NORMALS: Equal, round and reactive pupils present and EOMs intact bilaterally PUPIL: Yes Equal, round and reactive pupils present Neck/C-Spine: COMMON NORMALS: full ROM, supple and no meningeal signs Chest: COMMONS NORMALS: normal inspection of the chest and normal palpation of entire chest wall Resp: COMMON NORMALS: normal respiratory effort, No retractions, No use of accessory muscles and clear to auscultation bilaterally AUSCULTATION: clear to auscultation bilaterally Cardio: COMMON NORMALS: regular rate, regular rhythm and No murmurs present (Cardio) RATE: regular rate RHYTHM: regular rhythm GI: COMMON NORMALS: Normal to inspection, nondistended, normoactive bowel sounds present, Soft to palpation, non-tender and no masses PALPATION: Yes Soft to palpation Extremity: COMMON NORMALS: normal to inspection and full ROM Neuro: COMMON NORMALS: moves all extremities and no focal motor deficits; negative for patient oriented x3 MENINGEAL SIGNS: Yes no meningeal signs Psych: COMMON NORMALS: cooperative; negative for mental status grossly normal Skin: COMMON NORMALS: no rashes or lesions noted and no wounds GENERAL SKIN EXAM: no rashes or lesions noted Course Vital Signs: Vital signs: Vital Signs Temperature 102.3 F H 11/27/22 17:51 Pulse Rate 117 H 11/27/22 20:00 Respiratory Rate 22 H 11/27/22 20:00 Blood Pressure 121/66 11/27/22 20:00 Pulse Oximetry 97 11/27/22 20:00 Oxygen Delivery Me thod Nasal Cannula 11/27/22 17:58 Oxygen Flow Rate 4 11/27/22 17:58 MDM - Female Medical Decision Making Patient presents with altered mental status along with a fever she does have an elevated white count no signs of sepsis her lactate here is normal she has became less confused and her fevers went down we will start her on IV antibiotics spoke to the hospitalist will admit urine was positive for UTI likely causing the symptoms. Medical Records I reviewed the patient's medical records. Lab Data I reviewed the patient's lab results. 11/27/22 18:15 11/27/22 18:15 Radiology Impressions Chest X-Ray 11/27/22 17:45 IMPRESSION: No acute findings. Head CT 11/27/22 18:39 IMPRESSION: No acute intracranial abnormality. Laboratory Results WBC 18.7 10^3/uL (4.0-10.0) H 11/27/22 18:15 RBC 4.92 10^6/uL (4.1-5.3) 11/27/22 18:15 Hgb 14.4 g/dL (11.5-15.3) 11/27/22 18:15 Hct 44.5 % (37.0-47.0) 11/27/22 18:15 MCV 90.4 fl (81-99) 11/27/22 18:15 MCH 29.3 pg (28.0-34.0) 11/27/22 18:15 MCHC 32.4 g/dL (30.0-36.0) 11/27/22 18:15 RDW 13.9 % (12.1-15.1) 11/27/22 18:15 Plt Count 191 10^3/cmm (130-400) 11/27/22 18:15 MPV 12.0 fL (7.4-10.4) H 11/27/22 18:15 Neut % (Auto) 86.6 % 11/27/22 18:15 Lymph % (Auto) 7.0 % 11/27/22 18:15 [place] % (Auto) 5.1 % 11/27/22 18:15 Eos % (Auto) 0.2 % 11/27/22 18:15 Baso % (Auto) 0.3 % 11/27/22 18:15 Neut # (Auto) 16.18 10^3/uL (1.8-7.7) H 11/27/22 18:15 Lymph # (Auto) 1.3 10^3/uL (0.8-4.8) 11/27/22 18:15 [place] # (Auto) 1.0 10^3/uL (0.2-0.9) H 11/27/22 18:15 Eos # (Auto) 0.0 10^3/uL (0.0-0.8) 11/27/22 18:15 Baso # (Auto) 0.1 10^3/uL (0.0-0.1) 11/27/22 18:15 Nucleated RBC % (auto) 0 % 11/27/22 18:15 Nucleated RBCs # 0.0 /100WBC 11/27/22 18:15 Sodium 136 mmol/L (136-145) 11/27/22 18:15 Potassium 4.3 mmol/L (3.5-5.1) 11/27/22 18:15 Chloride 101 mmol/L (98-107) 11/27/22 18:15 Carbon Dioxide 23 mmol/L (22-29) 11/27/22 18:15 Anion Gap 16.3 (5-19) 11/27/22 18:15 BUN 40 mg/dL (8-23) H 11/27/22 18:15 Creatinine 1.4 mg/dL (0.5-0.9) H 11/27/22 18:15 GFR Calculation Not Reportable 11/27/22 18:15 Glucose 138 mg/dL (65-115) H 11/27/22 18:15 Calculated Osmolality 294 mOsm/kg (285-295) 11/27/22 18:15 Lactic Acid Cancelled 11/27/22 18:15 Lactate 1.5 mmol/L (0.5-2.2) 11/27/22 19:35 Calcium 9.0 mg/dL (8.5-10.5) 11/27/22 18:15 Total Bilirubin 0.8 mg/dL (0.15-1.2) 11/27/22 18:15 AST 20 U/L (0-32) 11/27/22 18:15 ALT 11 U/L (0-33) 11/27/22 18:15 Alkaline Phosphatase 98 U/L (35-105) 11/27/22 18:15 Total Protein 7.6 g/dL (6.6-8.7) 11/27/22 18:15 Albumin 3.8 g/dL (3.5-5.2) 11/27/22 18:15 Globulin 3.8 g/dL (1.3-4.6) 11/27/22 18:15 Urine Color Yellow (Yellow) 11/27/22 19:20 Urine Appearance Cloudy (CLEAR) A 11/27/22 19:20 Urine pH 6 (5-7) 11/27/22 19:20 Ur Specific [place] 1.015 (1.005-1.030) 11/27/22 19:20 Urine Protein Trace (Negative) 11/27/22 19:20 Urine Glucose (UA) Norm (Normal) 11/27/22 19:20 Urine Ketones Negative (Negative) 11/27/22 19:20 Urine Blood 3+ (Negative) H 11/27/22 19:20 Urine Nitrate Negative (Negative) 11/27/22 19:20 Urine Bilirubin Neg (Negative) 11/27/22 19:20 Urine Urobilinogen Norm mg/dL (Negative) 11/27/22 19:20 Ur Leukocyte Esterase 2+ (Negative) H 11/27/22 19:20 Urine RBC 0-4 /hpf (0-2) H 11/27/22 19:20 Urine WBC Too numerous to cnt /hpf (0-5) H 11/27/22 19:20 Ur Squamous Epith Cells None /hpf (0-5) 11/27/22 19:20 Amorphous Sediment Not Reportable 11/27/22 19:20 Urine Bacteria 2+ /hpf (NONE) H 11/27/22 19:20 Discharge Plan Discharge Patient Disposition: Admitted As Inpatient Clinical Impression: Urinary tract infection, Fever, Altered mental status Condition: Stable Prescriptions: No Action Multi-Vitamin Tablet 1 tab PO QAM atorvastatin 40 mg tablet 40 mg PO QPM acetaminophen 325 mg Tablet 325 mg PO Q6H PRN (Reason: Pain) [place] 5-325 mg Tablet 1 tab PO Q6H PRN (Reason: Pain) clonazepam 1 mg tablet 1 mg PO QPM Aspir-Low 81 mg Tablet,Delayed Release (Dr/Ec) 81 mg PO DAILY levothyroxine 100 mcg tablet 100 mcg PO DAILY Milk of Magnesia 400 mg/5 mL Suspension 30 ml PO DAILY PRN (Reason: Constipation) pantoprazole 40 mg tablet,delayed release (DR/EC) 40 mg PO DAILY nitrofurantoin macrocrystal 100 mg capsule 100 mg PO QPM lidocaine 5 % Adhesive Patch,Medicated 1 patch TOPICAL 2XD Rx Instructions: leave on most painful area for up to 12 hrs bisacodyl 5 mg Tablet,Delayed Release (Dr/Ec) 5 mg PO DAILY PRN (Reason: Constipation) Remeron 15 mg Tablet 7.5 mg PO DAILY Miralax 17 gram/dose Powder 4 g PO DAILY Acidophilus Capsule 100 mg PO QPM PRN (Reason: Constipation) melatonin 1 mg Tablet 1 mg PO QPM Fish Oil 500 mg Capsule 500 mg PO DAILY cholecalciferol (vitamin D3) 125 mcg (5,000 unit) Tablet 125 mcg PO DAILY Coding Level of Care Code 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
--- NOTE | 2022-11-27 19:39 | PC.PHAR ---
PHARMACY TO DOSE CONSULT - VANCOMYCIN With the patient's current renal and laboratory results, the vancomycin regimen was calculated at 1000mg every 48 hours for a predicted peak of 35.0 mcg/ml and trough of 11.33 mcg/ml. Pharmacy will continue to monitor this patient's renal function and trough levels, making adjustments as necessary. Please let us know if there is anything else we can do in the care of this patient. Thanks, Dilip Nava, Pharm.D
[2022-11-27 19:47] LABS: Glucose Urine UA Norm (Normal); Ketones Urine Negative (Negative); Protein Urine Trace (Negative); Specific Gravity, Urine 1.015 (1.005-1.030); Urine Appearance Cloudy (CLEAR); Urine Color Yellow (Yellow); pH Urine 6 (5-7)
[2022-11-27 19:48] LABS: Add Urine Culture? Yes; Add Urine Microscopic? YES; Bacteria Urine 2+ /hpf; Bilirubin Urine Neg (Negative); Blood Urine 3+ (Negative); Leukocyte Esterase Urine 2+ (Negative); Nitrate Urine Negative (Negative); RBC Urine 0-4 /hpf (0-2); Urobilinogen Urine Norm (Negative); WBC Urine TOO NUMEROUS TO CNT /hpf (0-5)
[2022-11-27] MEDS: acetaminophen 325 mg Tablet 650 MG PO (19:57)
[2022-11-27] MEDS: vancomycin 1,000 MG in sodium chloride 0.9% 250 ML 250 MG IV (19:59)
[2022-11-27] MEDS: sodium chloride 0.9% 1,000 ML 999 ML IV (20:07)
[2022-11-27 20:15] LABS: Lactate (Lactic Acid level) 1.5 mmol/L (0.5-2.2)
--- NOTE | 2022-11-27 21:18 | PM.HP ---
Providers/Chief Complaint Admitting Physician: Olena Herrera MD Chief Complaint: UTI, sepsis History of Present Illness Esperanza Duran is a 87 year old female With unknown past medical history, no surgical history presented to the hospital today for altered mental status from long term. We do note that she has a history of bladder cancer and had her bladder removed and has a urostomy in place at this time. She is possibly in remission at this time. It was noted that she had a temp of 102.3 at the long term but her vital signs were normal. Concern was altered mental status from her baseline. Patient is unable to answer any questions but is able to follow some commands. She does not know where she is or what is going on however knows her name and birthday. She is unable to provide any history. She does state that she does not wear oxygen at home. There is no family present at bedside at this time. Unable to confirm her medical history or medications. We will be reaching out to long term for medication list. At this time denies chest pain, shortness of breath, abdominal pain, nausea, vomiting, diarrhea. On arrival blood pressure 121/66, respiratory 22, pulse 117, temperature 102.3 saturating 97% on 4 L nasal cannula. Lactic acid is normal. Does not meet sepsis criteria. WBC 18.7, hemoglobin 14.4, platelet 91, sodium 136, potassium 4.3, creatinine 1.4, lactate 1.5, UA positive for 3+ blood, 2+ leukocyte esterase, too numerous to count WBCs, 2+ bacteria. Medications/Allergies Home Medications Medication Instructions Recorded Confirmed Last Taken Type Lactobacillus acidophilus 100 mg PO QPM PRN Constipation 12/26/21 12/26/21 12/25/21 History (Acidophilus capsule) acetaminophen 325 mg tablet 325 mg PO Q6H PRN Pain 12/26/21 12/26/21 Unknown History aspirin 81 mg tablet,delayed 81 mg PO DAILY 12/26/21 12/26/21 12/26/21 History release atorvastatin 40 mg tablet 40 mg PO QPM 12/26/21 12/26/21 12/25/21 History bisacodyl 5 mg tablet,delayed 5 mg PO DAILY PRN Constipation 12/26/21 12/26/21 Unknown History release cholecalciferol (vitamin D3) 125 125 mcg PO DAILY 12/26/21 12/26/21 12/26/21 History mcg (5,000 unit) tablet clonazepam 1 mg tablet 1 mg PO QPM 12/26/21 12/26/21 12/25/21 History hydrocodone 5 mg-acetaminophen 325 1 tab PO Q6H PRN Pain 12/26/21 12/26/21 Unknown History mg tablet levothyroxine 100 mcg tablet 100 mcg PO DAILY 12/26/21 12/26/21 12/26/21 History lidocaine 5 % topical patch 1 patch topical 2XD 12/26/21 12/26/21 Unknown History magnesium hydroxide 400 mg/5 mL 30 ml PO DAILY PRN Constipation 12/26/21 12/26/21 Unknown History oral suspension (Milk of Magnesia) melatonin 1 mg tablet 1 mg PO QPM 12/26/21 12/26/21 12/25/21 History mirtazapine 15 mg tablet (Remeron) 7.5 mg PO DAILY 12/26/21 12/26/21 12/25/21 History multivitamin 1 tab PO QAM 12/26/21 12/26/21 12/26/21 History nitrofurantoin macrocrystal 100 mg 100 mg PO QPM 12/26/21 12/26/21 12/25/21 History capsule omega-3 fatty acids 500 mg capsule 500 mg PO DAILY 12/26/21 12/26/21 12/26/21 History pantoprazole 40 mg tablet,delayed 40 mg PO DAILY 12/26/21 12/26/21 12/26/21 History release polyethylene glycol 3350 17 4 g PO DAILY 12/26/21 12/26/21 12/26/21 History gram/dose oral powder (Miralax) Allergies Allergy/AdvReac Type Severity Reaction Status Date / Time cephalexin [From Keflex] Allergy Unknown Verified 04/12/22 19:47 codeine Allergy Unknown Verified 04/12/22 19:47 PFSH Acute PFSH: Medical History Medical history unknown Surgical History Surgical history unknown Social History Lives independently: No Housing: Group Home Vitals/I&O/Wt Last Vital Signs Temp 102.3 F H 11/27/22 17:51 Pulse 117 H 11/27/22 20:00 Resp 22 H 11/27/22 20:00 BP 121/66 11/27/22 20:00 Pulse Ox 97 11/27/22 20:00 O2 Del Method Nasal Cannula 11/27/22 17:58 O2 Flow Rate 4 11/27/22 17:58 Weight last 48 hrs Weight 58.967 kg Physical Exam Narrative: General: Alert oriented x1, patient seen laying in bed appearing confused on 4 L nasal cannula. HEENT: Normocephalic, atraumatic, EOMI, no acute respiratory distress Cardio: Regular rate rhythm, normal S1-S2 Respiratory: Clear to auscultation bilaterally GI/: Abdomen soft, nontender, nondistended, bowel sounds +, urostomy in place Extremities: No edema present Data 11/27/22 18:15 11/27/22 18:15 Micro: Microbiology 11/27/22 18:24 Blood Culture - Preliminary Blood SPECIMEN COLLECTED 11/27/22 18:15 Blood Culture - Preliminary Blood SPECIMEN COLLECTED A&P Assessment and plan (1) Urinary tract infection: (2) Fever: (3) Altered mental status: Plan #UTI #Fever most likely secondary to above #Bladder cancer status post bladder removal status post urostomy #Altered mental status, baseline unknown #Question history of dementia #Hypothyroidism #GERD #LICO on CKD, baseline creatinine 1.1 ? We will need to confirm medications from long term. Med check will need to be completed. ? We will need to ask long term regarding baseline mental status. Will attempt to contact patient's son. History was obtained from chart and ER doctor at this time. ? UA positive suggestive for UTI. ? We will place on broad-spectrum antibiotics at this time. Continue on vancomycin and Zosyn ? Placed on Protonix 40 daily, levothyroxine 100 daily, aspirin, atorvastatin ? Check TSH, hemoglobin A1c ? Check urine culture, blood cultures ? Check procalcitonin ? CT head negative for intracranial abnormality ? Chest x-ray shows no acute findings ? Check vitamin B12, ammonia level -Patient is altered and has a fever. Source seems to be urine at this time. However if no improvement consider checking lumbar puncture. She does not have any nuchal rigidity or neck stiffness at this time. -I will check CT chest abdomen pelvis -Baseline creatinine 1.1, creatinine 1.[address] on IV fluids normal saline 125 cc/h CODE STATUS: Unknown at this time. We will treat as full code. Will discuss with family Attestations Medical Necessity Statement*: Greater than 2 midnight stay for management of UTI, altered mental status Coding Level of Care Code G0425 (30 min) TH Encounter Time (min): 45 Patient seen via Telehealth in the acute care setting (hospital or ED location) by agreement and consent of patient or patient advertising sales representative. Telehealth technology used during the visit includes video and audio. This patient encounter is appropriate and reasonable under the circumstances given the patient?s particular presentation at this time. The patient has been advised of the potential risks and limitations of this mode of treatment (including but not limited to the absence of in-person examination at this time) and has agreed to be treated by an off-site physician for this visit. If deemed clinically necessary from this telehealth visit, or if condition or consent for telehealth visit changes, an in-person visit will be arranged. For this encounter, total time for the origination of telehealth care on this date is as shown. Diagnoses Urinary tract infection N39.0 Fever R50.9 Altered mental status R41.82
[2022-11-27 21:33] LABS: Reflex Lactate Order REFLEX LACTIC ORDERD
[2022-11-27 21:59] LABS: Procalcitonin 0.71 ng/mL (0-0.5); Thyroid Stimulating Hormone 0.88 uIU/mL (0.27-4.20)
[2022-11-27] MEDS: heparin 5,000 unit/mL INJ 1 mL 5000 UNIT SUBCUT (23:33)
--- NOTE | 2022-11-27 23:56 | CTR_ITS ---
PROCEDURE INFORMATION: Exam: CT Chest Without Contrast; Diagnostic Exam date and time: 11/28/2022 12:48 AM Age: 87 years old Clinical indication: Abnormal findings; Abnormal lab test; Elevated wbc; Other: N/a; Prior surgery; Surgery date: 6+ months; Surgery type: Gb. Ostomy. Bladder. Richard. Patient HX: Fever. Wbc of 19k. Bacteriuria. ; Additional info: R/O infective process, , UTI, fever, AMS TECHNIQUE: Imaging protocol: Diagnostic computed tomography of the chest without contrast. Radiation optimization: All CT scans at this facility use at least one of these dose optimization techniques: automated exposure control; mA and/or kV adjustment per patient size (includes targeted exams where dose is matched to clinical indication); or iterative reconstruction. REPORTING DATA: Count of CT and Cardiac NM exams in prior 12 months: This patient has received 5 known CTs and 0 known cardiac nuclear medicine studies in the 12 months prior to the current study. COMPARISON: CT chest abdpel w/*[id number] 04/12/2022 8:39 PM RADIATION DOSE METRICS: Total DLP (mGy-cm): 513.13 FINDINGS: Lungs: There is a background centrilobular emphysema, bronchiectasis and pulmonary fibrosis. Some patchy ground-glass opacities are seen in the lung bases bilaterally likely representing pulmonary fibrosis although a bilateral basilar interstitial pneumonitis cannot be entirely excluded. Pleural spaces: Unremarkable. No pneumothorax. No pleural effusion. Heart: Unremarkable. No cardiomegaly. No pericardial effusion. Coronary arteries: There are moderate coronary artery calcifications. Lymph nodes: Unremarkable. No enlarged lymph nodes. Vasculature: Prominent calcifications are seen within the thoracic aorta. There is aneurysmal dilatation of the descending thoracic aorta measuring approximately 3.7 cm in diameter proximally and 5.1 cm transverse diameter at the aortic hiatus. This appears more prominent today compared with 04/12/2022. There is no evidence for dissection or extravasation. Bones/joints: Unremarkable. No acute fracture. Soft tissues: Unremarkable. PROCEDURE INFORMATION: Exam: CT Abdomen And Pelvis Without Contrast Exam date and time: 11/28/2022 12:48 AM Age: 87 years old Clinical indication: Abnormal findings; Abnormal lab test; Elevated wbc; Other: N/a; Prior surgery; Surgery date: 6+ months; Surgery type: Gb. Ostomy. Bladder. Richard. Patient HX: Fever. Wbc of 19k. Bacteriuria. ; Additional info: R/O infective process, , UTI, fever, AMS TECHNIQUE: Imaging protocol: Computed tomography of the abdomen and pelvis without contrast. Radiation optimization: All CT scans at this facility use at least one of these dose optimization techniques: automated exposure control; mA and/or kV adjustment per patient size (includes targeted exams where dose is matched to clinical indication); or iterative reconstruction. REPORTING DATA: Count of CT and Cardiac NM exams in prior 12 months: This patient has received 5 known CTs and 0 known cardiac nuclear medicine studies in the 12 months prior to the current study. COMPARISON: CT chest abdpel w/*[id number] 04/12/2022 8:39 PM RADIATION DOSE METRICS: Total DLP (mGy-cm): 513.13 FINDINGS: Liver: Normal. No mass. Gallbladder and bile ducts: Status post cholecystectomy. The common bile duct is prominent measuring 17.6 mm in its midportion tapering to normal caliber within the pancreas. Pancreas: Normal. No ductal dilation. Spleen: Normal. No splenomegaly. Adrenal glands: Normal. No mass. Kidneys and ureters: There are stable cysts seen in the upper pole of the right kidney, the largest measuring approximately 1.5 cm. A nonobstructing calculus seen in the upper pole of the right kidney measuring 3.4 mm. A nonobstructing calculus seen in lower pole of the left kidney measuring 4.1 mm. 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 There is bilateral hydronephrosis and hydroureter seen. Appendix: No evidence of appendicitis. Intraperitoneal space: Unremarkable. No free air. No significant fluid collection. Vasculature: Unremarkable. No abdominal aortic aneurysm. Lymph nodes: Unremarkable. No enlarged lymph nodes. Urinary bladder: Status post cystectomy. Reproductive: Status post hysterectomy. Bones/joints: Status post gamma nailing of the left hip. Severe loss of disc height and vacuum disc phenomenon is seen at L4-L5. Soft tissues: Unremarkable. CT/[place] [id number] IMPRESSION: 1. Background of centrilobular emphysema, bronchiectasis and pulmonary fibrosis. Patchy ground-glass opacities in the lung bases bilaterally may represent pulmonary fibrosis although bilateral basilar interstitial pneumonitis cannot be excluded. 2. Aneurysmal dilatation of the descending thoracic aorta without evidence of dissection or extravasation. Proximal descending thoracic aorta measures 3.7 cm, the distal descending thoracic aorta measures 5.1 cm at the aortic hiatus. This appears more prominent today compared with 04/12/2022. IMPRESSION: 1. There are no acute abdominal findings. 2. There is hydronephrosis and hydroureter in this patient is status post cystectomy and ileostomy. This is similar to that seen on 04/12/2022 however. 3. Bilateral nonobstructing renal calculi 4. Stable right renal cysts, the largest measuring 1.5 cm. No further workup needed.
[2022-11-28] VITALS (14 sets, daily range): BP systolic 103–139; BP diastolic 70–84; PULSE 82–106; RESP 16–20; TEMP 36.6–38.3; O2SAT 93–96
[2022-11-28] MEDS: sodium chloride 0.9% 1,000 ML 100 ML IV (01:50)
[2022-11-28] MEDS: piperacillin-tazobactam 3.375 GM in sodium chloride 0.9% (plus) 50 ML IV ×4 (01:51→23:32)
[2022-11-28 02:37] LABS: Basophils # 0.1 10^3/uL (0.0-0.1); Basophils % 0.4 %; Eosinophils # 0.1 10^3/uL (0.0-0.8); Eosinophils % 0.5 %; Hematocrit 40.6 % (37.0-47.0); Hemoglobin 12.9 g/dL (11.5-15.3); Lymphocytes # 1.5 10^3/uL (0.8-4.8); Lymphocytes % 9.3 %; Mean Corpuscular HGB Conc 31.8 g/dL (30.0-36.0); Mean Corpuscular Hemoglobin 29.1 pg (28.0-34.0); Mean Corpuscular Volume 91.4 fl (81-99); Monocytes # 1.1 10^3/uL (0.2-0.9); Monocytes % 6.7 %; Neutrophils % 82.3 %; Nucleated Red Blood Cells % 0 %; Platelet Count 164 10^3/cmm (130-400); Red Blood Count 4.44 10^6/uL (4.1-5.3); Red Cell Distribution Width 13.9 % (12.1-15.1); White Blood Count 16.5 10^3/uL (4.0-10.0)
[2022-11-28 03:01] LABS: Ammonia 19 umol/L (11-51)
[2022-11-28 03:09] LABS: Anion Gap 13.8 (5-19); Blood Urea Nitrogen 42 mg/dL (8-23); Calcium 8.8 mg/dL (8.5-10.5); Carbon Dioxide 23 mmol/L (22-29); Chloride 104 mmol/L (98-107); Glucose 117 mg/dL (65-115); Magnesium 1.9 mg/dL (1.7-2.3); NT Pro B Type Natriuretic Pept 632 pg/mL (0-450); Osmolality Calculated 296 mOsm/kg (285-295); Potassium 3.8 mmol/L (3.5-5.1); Sodium 137 mmol/L (136-145); Thyroid Stimulating Hormone 0.63 uIU/mL (0.27-4.20)
[2022-11-28 03:10] LABS: Creatinine Clr Calc Pharmacy 26.9843
[2022-11-28 03:41] LABS: Vitamin B12 412 pg/mL (232-1245)
--- NOTE | 2022-11-28 07:38 | PM.PN ---
Subjective Subjective: Seen at bedside this AM. Pt alert to person, not place or time. States she is feeling improved. No complaints today. no abd pain or dysuria. admits to chronic R flank pain. Denies CP, palpitations, SOB, N/V/D/C, abd pain Vitals/I&O/Wt Last Vital Signs Temp 98.0 F 11/28/22 03:57 Pulse 102 H 11/28/22 04:54 Resp 20 H 11/28/22 04:54 BP 118/84 11/28/22 03:57 Pulse Ox 94 11/28/22 04:54 O2 Del Method Nasal Cannula 11/28/22 04:54 O2 Flow Rate 2 11/28/22 04:54 Weight last 48 hrs Weight 130 lb Physical Exam Narrative: General: AOx 1 (person, not place/time), no acute distress, well developed, well nourished, appears stated age psych: appropriate mood and affect. Head: atraumatic, normocephalic, no mass/lesions Eyes: conjunctiva clear w/o exudate or hemorrhage. non-icteric, EOM intact, Nose: nasal mucosa pink, septum midline Oropharynx: poor dentition Neck: FROM, no lymphadenopathy, CVD: RRR, normal S1 and S2, no M/R/G. 2+ pulse x 4 extremities, no JVD, Lungs: clear lung sounds in all stafford except for faint crackles in LL lobe, no rhonchi, wheezing, rales. Abdomen: NT, ND, soft, NABS. No hepatosplenomegaly, no mass. urostomy in place Extremities: FROM and 5/5 strength in BUE and BLE. no visible joint abnormalities on active and passive ROM. Back: R flank ttp Data 11/28/22 02:22 11/28/22 02:22 Micro: Microbiology 11/27/22 18:24 Blood Culture - Preliminary Blood SPECIMEN COLLECTED 11/27/22 18:15 Blood Culture - Preliminary Blood SPECIMEN COLLECTED A&P Assessment and plan (1) Urinary tract infection: (2) Fever: (3) Altered mental status: (4) Volume overload: (5) LICO (acute kidney injury): Plan #UTI #Fever most likely secondary to above #Bladder cancer status post bladder removal status post urostomy #Altered mental status, baseline unknown - improving #Question history of dementia #Hypothyroidism #GERD #LICO on CKD, baseline creatinine 1.1 - currently 1.3, on IVF #vol overload -BNP 632 AMS - improving -if no resolution on Abx consider LP. no Sx or signs of meningitis. CT head negative UTI -UA +ve, CXR negative -empiriv IV Vanc, Zosyn -pending Cx Hep ggt NS 100cc/hr will discontinue, give lasix 40mg qd x 1, re-eval in AM. encourage PO hydration Protonix 40mg qd, synthroid 100qd, ASA Asirin LICO CT abd/pelvis 11/27/22: no acute abnormalities. 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 Bilateral nonobstructing renal calculi, stable R renal cyst of 1.5cm med rec completed awaiting NH or son to call. we have attempted. CODE STATUS: DNR per [facility] records Attestations Medical Necessity Statement*: will require 2 overnight stays Coding Level of Care Code 04354 Diagnoses Urinary tract infection N39.0 Fever R50.9 Altered mental status R41.82 Volume overload E87.70 LICO (acute kidney injury) N17.9
--- NOTE | 2022-11-28 08:00 | PC.PHAR ---
called and requested a mar from [facility] at 8:00 am 11/28/22 from neha
[2022-11-28] MEDS: polyethylene glycol 3350 Pkt 17 gm 4 GM PO (08:02)
[2022-11-28] MEDS: pantoprazole DR 40 mg Tablet PO (08:03)
[2022-11-28] MEDS: aspirin 81 mg EC Tablet PO (08:03)
[2022-11-28] MEDS: heparin 5,000 unit/mL INJ 1 mL 5000 UNIT SUBCUT ×2 (08:03→22:03)
[2022-11-28] MEDS: cholecalciferol (vitamin D3) 5,000 unit Tablet 5000 UNIT PO (08:03)
[2022-11-28] MEDS: levothyroxine 100 mcg Tablet PO (08:03)
[2022-11-28] MEDS: ipratropium-albuterol 3 mL Neb INHALATION ×3 (08:05→14:50)
--- NOTE | 2022-11-28 10:34 | PC.CHAP ---
Pastoral Care Encounter/Spiritual Assessment Type of Contact [] Declined compatibility test engineer visit [] Patient/Family/Request visit [] Outpatient visit [] Follow-up visit [] Physician referral [] Code/Alert x[] Routine visit [] Staff referral [] Actively dying [x] Patient sleeping [] Family support [] [] Out of room [] Palliative care [] [] Receiving care in room [] Pre-surgical visit [] Trauma [] Long length of stay [] ICU visit [] Other: Relational/Emotional Strength [] Patient feels connected with others/family/visitors/staff [] Distress [] Loneliness/isolation [] Abandonment Spirituality of Patient [] Person of Mony [] Attends Yazidism of their Mony [] Believes in Prayer [] Reads Bible or Yarsanism materials [] There are Spiritual issues to be addressed Fitness Services Manager Interventions [] Prayer [] Active listening [] Non-anxious presence [] Spiritual/emotional support [] Crisis/trauma care [] Spiritual counseling [] Bereavement support [] Provided bereavement packet [] Provided Bible/devotional materials [] Provided toy/stuffed animal, coloring book to patient or family member [] Provided Communion [] Anointing/[place] [] Salvation [] Completed spiritual assessment [] Other: Impact on Illness or Injury [] Angry [] Fearful [] Anxious [] Often cries [] Exhaustion [] Unable to work [] Unable to attend faith [] Unable to walk/stand [] Unable to read [] Unable to drive [] Unable to eat/drink [] Unable to sleep [] Unable to be with family [] Patient intubated [] Other: Summary Time spent with patient
[2022-11-28] MEDS: FUROsemide 40 mg Tablet PO (11:17)
[2022-11-28] MEDS: atorvastatin 40 mg Tablet PO (18:30)
[2022-11-28] MEDS: CLONazepam 1 mg Tablet PO (18:30)
[2022-11-28] MEDS: mirtazapine 30 mg Tablet PO (22:03)
[2022-11-29] VITALS (10 sets, daily range): BP systolic 117–147; BP diastolic 73–98; PULSE 94–120; RESP 16–18; TEMP 36.6–37.1; O2SAT 91–94
[2022-11-29 05:33] LABS: Basophils # 0.1 10^3/uL (0.0-0.1); Basophils % 0.6 %; Eosinophils # 0.1 10^3/uL (0.0-0.8); Eosinophils % 1.3 %; Hematocrit 40.6 % (37.0-47.0); Hemoglobin 13.4 g/dL (11.5-15.3); Lymphocytes # 1.1 10^3/uL (0.8-4.8); Lymphocytes % 11.4 %; Mean Corpuscular Hemoglobin 29.3 pg (28.0-34.0); Mean Corpuscular Volume 88.8 fl (81-99); Mean Platelet Volume 11.7 fL (7.4-10.4); Monocytes # 0.9 10^3/uL (0.2-0.9); Monocytes % 9.2 %; Neutrophils # 7.48 10^3/uL (1.8-7.7); Nucleated Red Blood Cells % 0 %; Platelet Count 193 10^3/cmm (130-400); Red Blood Count 4.57 10^6/uL (4.1-5.3); Red Cell Distribution Width 13.7 % (12.1-15.1); White Blood Count 9.7 10^3/uL (4.0-10.0)
[2022-11-29 05:56] LABS: Alanine Aminotransferase 46 U/L (0-33); Albumin Level 3.4 g/dL (3.5-5.2); Alkaline Phosphatase 112 U/L (35-105); Anion Gap 17.1 (5-19); Aspartate Amino Transferase 70 U/L (0-32); Blood Urea Nitrogen 36 mg/dL (8-23); Carbon Dioxide 22 mmol/L (22-29); Chloride 102 mmol/L (98-107); Globulin 3.7 g/dL (1.3-4.6); Glucose 116 mg/dL (65-115); Osmolality Calculated 295 mOsm/kg (285-295); Potassium 3.1 mmol/L (3.5-5.1); Sodium 138 mmol/L (136-145); Total Bilirubin 0.9 mg/dL (0.15-1.2); Total Protein 7.1 g/dL (6.6-8.7)
--- NOTE | 2022-11-29 07:19 | PM.PN ---
Subjective Subjective: Seen at bedside this AM. Pt alert to person and place, not time. Appears improved from yesterday. states she is having no dysuria or abdominal pain. no flank pain this AM. seen eating food. Denies CP, palpitations, SOB, N/V/D/C, abd pain overnights: appears to be . Vitals/I&O/Wt Last Vital Signs Temp 98.3 F 11/29/22 03:21 Pulse 103 H 11/29/22 03:21 Resp 17 11/29/22 03:21 BP 122/82 11/29/22 03:21 Pulse Ox 94 11/29/22 03:21 O2 Del Method Room Air 11/29/22 03:21 O2 Flow Rate 2 11/28/22 04:54 11/28/22 11/29/22 11/29/22 22:59 06:59 14:59 Intake Total 1530 / 4080 50 / 4130 Output Total 950 / 1175 200 / 1375 Balance 580 / 2905 -150 / 2755 Weight last 48 hrs Weight 130 lb Physical Exam Narrative: General: AOx 2 (person and place, NOT time), no acute distress, well developed, well nourished, appears stated age psych: appropriate mood and affect. Head: atraumatic, normocephalic, no mass/lesions Eyes: conjunctiva clear w/o exudate or hemorrhage. non-icteric, EOM intact, Nose: nasal mucosa pink, septum midline Oropharynx: poor dentition Neck: FROM, no lymphadenopathy, CVD: RRR, normal S1 and S2, no M/R/G. 2+ pulse x 4 extremities, no JVD, Lungs: clear lung sounds in all stafford except for faint crackles in LL lobe, no rhonchi, wheezing, rales. Abdomen: NT, ND, soft, NABS. No hepatosplenomegaly, no mass. urostomy in place Extremities: FROM and 5/5 strength in BUE and BLE. no visible joint abnormalities on active and passive ROM. Back: no flank pain Data 11/29/22 05:03 11/29/22 05:03 Micro: Microbiology 11/27/22 18:24 Blood Culture - Preliminary Blood NEGATIVE TO DATE 11/27/22 18:15 Blood Culture - Preliminary Blood Escherichia coli A&P Assessment and plan (1) Urinary tract infection: (2) Fever: (3) Altered mental status: (4) Volume overload: (5) LICO (acute kidney injury): Plan #UTI #Fever most likely secondary to above #Bladder cancer status post bladder removal status post urostomy #Altered mental status, baseline unknown - improving #Question history of dementia #Hypothyroidism #GERD #LICO on CKD, baseline creatinine 1.1 - currently 1.2. improving #vol overload -BNP 632 #hypokalemia AMS - improving -if no resolution on Abx consider LP. no Sx or signs of meningitis. CT head negative, CXR negative -slowly resolving. UTI -UA +ve for E.Coli -prelim blood Cx E.coli in 1 of 2 bottles -empiriv IV Vanc, Zosyn LICO -improving Lasix 40mg IV x 2 yday. encouraged PO hydration. LICO improving CT abd/pelvis 11/27/22: no acute abnormalities. 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 Bilateral nonobstructing renal calculi, stable R renal cyst of 1.5cm awaiting NH or son to call. we have attempted. CODE STATUS: DNR per [place] records continue Hep gtt incase we need to do LP. otherwise can likely de-escalate to garret 40 tomorrow repleat potassium plan: likely d/c thursday back to NH on PO Abx. mentation improving. Attestations Medical Necessity Statement*: will require hospitalization for culture and sensitivity of infection Coding Level of Care Code 41647 Diagnoses Urinary tract infection N39.0 Fever R50.9 Altered mental status R41.82 Volume overload E87.70 LICO (acute kidney injury) N17.9
[2022-11-29] MEDS: piperacillin-tazobactam 3.375 GM in sodium chloride 0.9% (plus) 50 ML IV ×2 (07:31→16:01)
[2022-11-29] MEDS: ipratropium-albuterol 3 mL Neb INHALATION (08:16)
[2022-11-29] MEDS: polyethylene glycol 3350 Pkt 17 gm 4 GM PO (09:18)
[2022-11-29] MEDS: pantoprazole DR 40 mg Tablet PO (09:19)
[2022-11-29] MEDS: cholecalciferol (vitamin D3) 5,000 unit Tablet 5000 UNIT PO (09:19)
[2022-11-29] MEDS: aspirin 81 mg EC Tablet PO (09:19)
[2022-11-29] MEDS: levothyroxine 100 mcg Tablet PO (09:19)
[2022-11-29] MEDS: heparin 5,000 unit/mL INJ 1 mL 5000 UNIT SUBCUT ×2 (09:19→20:53)
[2022-11-29] MEDS: potassium chloride ER 20 mEq Tablet 40 MEQ PO ×2 (13:26→18:46)
[2022-11-29] MEDS: CLONazepam 1 mg Tablet PO (18:46)
[2022-11-29] MEDS: atorvastatin 40 mg Tablet PO (18:46)
[2022-11-29] MEDS: vancomycin 1,000 MG in sodium chloride 0.9% 250 ML 250 MG IV (20:50)
[2022-11-29] MEDS: mirtazapine 30 mg Tablet PO (20:53)
[2022-11-30] VITALS (10 sets, daily range): BP systolic 126–151; BP diastolic 78–111; PULSE 83–92; RESP 15–18; TEMP 36.3–37.1; O2SAT 92–98
[2022-11-30] MEDS: piperacillin-tazobactam 3.375 GM in sodium chloride 0.9% (plus) 50 ML IV ×3 (00:09→17:11)
[2022-11-30 05:18] LABS: Basophils # 0.1 10^3/uL (0.0-0.1); Basophils % 0.8 %; Eosinophils # 0.4 10^3/uL (0.0-0.8); Eosinophils % 5.5 %; Hematocrit 41.1 % (37.0-47.0); Hemoglobin 13.2 g/dL (11.5-15.3); Lymphocytes # 1.5 10^3/uL (0.8-4.8); Lymphocytes % 19.3 %; Mean Corpuscular HGB Conc 32.1 g/dL (30.0-36.0); Mean Corpuscular Hemoglobin 29.2 pg (28.0-34.0); Mean Corpuscular Volume 90.9 fl (81-99); Mean Platelet Volume 11.5 fL (7.4-10.4); Monocytes # 0.8 10^3/uL (0.2-0.9); Monocytes % 10.5 %; Neutrophils # 5.01 10^3/uL (1.8-7.7); Neutrophils % 63.5 %; Nucleated Red Blood Cells % 0 %; Platelet Count 201 10^3/cmm (130-400); Red Blood Count 4.52 10^6/uL (4.1-5.3); Red Cell Distribution Width 13.7 % (12.1-15.1); White Blood Count 7.9 10^3/uL (4.0-10.0)
[2022-11-30 05:36] LABS: Alanine Aminotransferase 64 U/L (0-33); Albumin Level 3.1 g/dL (3.5-5.2); Alkaline Phosphatase 113 U/L (35-105); Anion Gap 14.4 (5-19); Aspartate Amino Transferase 80 U/L (0-32); Blood Urea Nitrogen 34 mg/dL (8-23); Carbon Dioxide 21 mmol/L (22-29); Chloride 106 mmol/L (98-107); Globulin 3.9 g/dL (1.3-4.6); Glucose 99 mg/dL (65-115); Osmolality Calculated 292 mOsm/kg (285-295); Potassium 4.4 mmol/L (3.5-5.1); Sodium 137 mmol/L (136-145); Total Bilirubin 0.7 mg/dL (0.15-1.2)
[2022-11-30 05:45] LABS: Creatinine Clr Calc Pharmacy 26.9843
[2022-11-30] MEDS: cholecalciferol (vitamin D3) 5,000 unit Tablet 5000 UNIT PO (09:09)
[2022-11-30] MEDS: polyethylene glycol 3350 Pkt 17 gm 4 GM PO (09:09)
[2022-11-30] MEDS: pantoprazole DR 40 mg Tablet PO (09:09)
[2022-11-30] MEDS: heparin 5,000 unit/mL INJ 1 mL 5000 UNIT SUBCUT (09:09)
[2022-11-30] MEDS: levothyroxine 100 mcg Tablet PO (09:09)
[2022-11-30] MEDS: aspirin 81 mg EC Tablet PO (09:09)
--- NOTE | 2022-11-30 10:22 | PC.SOCIAL ---
Imm update Imm updated with patient's son by phone. copy of page 2 provided. Son Matthew verbalized understanding. Copy in chart initialed, dated and timed.
--- NOTE | 2022-11-30 10:41 | PC.PT ---
Patient refused x3 and was unarousable with normal stimuli. She became very angry and refused with other attempts to orient to place/time. Nursing notified.
--- NOTE | 2022-11-30 11:28 | PM.PN ---
Subjective Subjective: Seen at bedside this AM. Pt alert to person, not palce or time. Appears overall improved and alert. Denies any CP, palpitations, abd pain, suprapubic pain. overall slightly improved mentation compared to yesterday. Instructions given to nursing staff to keep blinds open during the day and light on. overnights: stayed up until 1am, slight improvement form the night before. some combativeness overnight, redirectable. BP elevated but has since improved. Vitals/I&O/Wt Last Vital Signs Temp 97.6 F 11/30/22 08:34 Pulse 86 11/30/22 08:34 Resp 16 11/30/22 08:34 BP 147/105 11/30/22 08:34 Pulse Ox 95 11/30/22 08:34 O2 Del Method Room Air 11/30/22 08:34 O2 Flow Rate 2 11/28/22 04:54 11/29/22 11/30/22 11/30/22 22:59 06:59 14:59 Intake Total 410 / 820 300 / 1120 Output Total 150 / 700 750 / 1450 250 / 250 Balance 260 / 120 -450 / -330 -250 / -250 Physical Exam Narrative: General: AOx 2 (person and place, NOT time), no acute distress, well developed, well nourished, appears stated age psych: appropriate mood and affect. Head: atraumatic, normocephalic, no mass/lesions Eyes: conjunctiva clear w/o exudate or hemorrhage. non-icteric, EOM intact, Nose: nasal mucosa pink, septum midline Oropharynx: poor dentition Neck: FROM, no lymphadenopathy, CVD: RRR, normal S1 and S2, no M/R/G. 2+ pulse x 4 extremities. Lungs: clear lung sounds in all stafford. no crackles/rhonchi/wheezing. Abdomen: NT, ND, soft, NABS. No hepatosplenomegaly, no mass. urostomy in place Extremities: FROM and 5/5 strength in BUE and BLE. Back: no flank pain Data 11/30/22 04:55 11/30/22 04:55 Micro: Microbiology 11/27/22 19:20 Urine Culture - Preliminary Urine,Clean Catch Gram Negative Rods A&P Assessment and plan (1) Urinary tract infection: (2) Fever: (3) Altered mental status: (4) Volume overload: (5) LICO (acute kidney injury): (6) E coli bacteremia: Plan #UTI #Fever most likely secondary to above #Bladder cancer status post bladder removal status post urostomy #Altered mental status, baseline unknown - improving #Question history of dementia #Hypothyroidism #GERD #LICO on CKD, baseline creatinine 1.1 - currently 1.2. improving #vol overload -BNP 632 #hypokalemia AMS - improving -if no resolution on Abx consider LP. no Sx or signs of meningitis. CT head negative, CXR negative -slowly resolving. Bacteremia and UTI -UA +ve for E.Coli -prelim blood Cx E.coli in 1 of 2 bottles -Zosyn will de-escalate Vanc at this time LICO -improving -encouraged PO hydration. LICO improving CT abd/pelvis 11/27/22: no acute abnormalities. 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 Bilateral nonobstructing renal calculi, stable R renal cyst of 1.5cm awaiting NH or son to call. we have attempted. CODE STATUS: DNR per [facility] records lovenox plan: - likely d/c thursday back to NH on PO Abx. mentation improving. Attestations Medical Necessity Statement*: will require hospitalization for culture and sensitivity of infection Coding Level of Care Code 39395 Diagnoses Urinary tract infection N39.0 Fever R50.9 Altered mental status R41.82 Volume overload E87.70 LICO (acute kidney injury) N17.9 E coli bacteremia R78.81; B96.20
[2022-11-30] MEDS: enoxaparin 40 mg/0.4 mL Syringe SUBCUT (12:59)
[2022-11-30] MEDS: CLONazepam 1 mg Tablet PO (17:12)
[2022-11-30] MEDS: atorvastatin 40 mg Tablet PO (17:12)
[2022-11-30] MEDS: mirtazapine 30 mg Tablet PO (21:22)
[2022-12-01] VITALS (9 sets, daily range): BP systolic 124–152; BP diastolic 73–94; PULSE 68–91; RESP 16–18; TEMP 36.6–36.8; O2SAT 95–99
[2022-12-01] MEDS: piperacillin-tazobactam 3.375 GM in sodium chloride 0.9% (plus) 50 ML IV ×3 (01:07→16:34)
[2022-12-01 04:55] LABS: Anion Gap 17.1 (5-19); Blood Urea Nitrogen 33 mg/dL (8-23); Calcium 9.1 mg/dL (8.5-10.5); Carbon Dioxide 18 mmol/L (22-29); Chloride 107 mmol/L (98-107); Glucose 119 mg/dL (65-115); Osmolality Calculated 294 mOsm/kg (285-295); Potassium 4.1 mmol/L (3.5-5.1); Sodium 138 mmol/L (136-145)
[2022-12-01] MEDS: cholecalciferol (vitamin D3) 5,000 unit Tablet 5000 UNIT PO (08:41)
[2022-12-01] MEDS: aspirin 81 mg EC Tablet PO (08:41)
[2022-12-01] MEDS: polyethylene glycol 3350 Pkt 17 gm 4 GM PO (08:41)
[2022-12-01] MEDS: pantoprazole DR 40 mg Tablet PO (08:41)
[2022-12-01] MEDS: levothyroxine 100 mcg Tablet PO (08:41)
[2022-12-01 09:52] LABS: SARS Covid-2 Antigen negative (Negative)
[2022-12-01] MEDS: enoxaparin 30 mg/0.3 mL Syringe SUBCUT (12:00)
--- NOTE | 2022-12-01 14:00 | PC.NURSE ---
Midline placed to left basilic vein without difficulty. Consulted to floor for midline placement. Pt to receive 9 days IV antibiotics upon [facility]. Informed consent obtained from patient's daughter Valeria, who is also DPOA. Procedure explained to patient, including risks and benefits. Pt verbalized understanding. Mid-arm circumference measured 10 cm from left AC 29 cm. Trimmed cath length of midline 12 cm with 0 cm external length noted. Line secured with stat lock. Biopatch and transparent semipermeable membrane (TSM) applied. Pt tolerated procedure well. Report given to bedside nurse, Farheen.
--- NOTE | 2022-12-01 16:16 | PM.PN ---
Subjective Subjective: Patient has been afebrile and hemodynamically stable. She knows her name, correct and able to tell me that she is in a hospital however states the place is [place] instead of [place]. She needs to be redirected frequently during conversation but is able to hold onto a simple conversation. Per daughter she is still not at baseline yet. Medications: Reviewed: Yes Vitals/I&O/Wt Last Vital Signs Temp 98.0 F 12/01/22 11:45 Pulse 87 12/01/22 16:00 Resp 17 12/01/22 16:00 BP 140/86 12/01/22 16:00 Pulse Ox 99 12/01/22 16:00 O2 Del Method Room Air 12/01/22 16:00 O2 Flow Rate 2 11/28/22 04:54 12/01/22 12/01/22 12/01/22 06:59 14:59 22:59 Intake Total 50 / 630 290 / 290 Output Total 1200 / 1650 500 / 500 Balance -1150 / -1020 -210 / -210 Physical Exam Narrative: General: No acute distress, AO x2 HEENT: PERRLA, pupils bilaterally equal and reactive, pallors not present Chest: Normal vesicular breath sounds, no added sounds, equal good air entry bilaterally CVS: S1-S2 regular, no murmurs, no tachycardia, no gallops, no rubs Abdomen: Soft, nontender, no organomegaly, bowel sounds present, urostomy bag in place Neuro: No focal deficits, no facial deformity, AO x2, power 5/5 in all limbs Data 11/30/22 04:55 12/01/22 04:24 Micro: Microbiology 11/27/22 18:15 Blood Culture - Final Blood Escherichia coli esbl 12/01/22 13:35 Blood Culture - Preliminary Blood SPECIMEN COLLECTED 12/01/22 13:35 Blood Culture - Preliminary Blood SPECIMEN COLLECTED 11/27/22 19:20 Urine Culture - Final Urine,Clean Catch Escherichia coli esbl A&P Assessment and plan (1) Urinary tract infection: (2) Altered mental status: (3) Volume overload: (4) LICO (acute kidney injury): (5) E coli bacteremia: Plan Altered mental status Related to metabolic encephalopathy from complicated UTI with ESBL E. coli and resulting bacteremia. Blood culture last positive from 11/27/2022. And check repeat blood culture to ensure clearance. Currently on piperacillin/tazobactam in keeping with culture results. Plan transition to ertapenem 1 g IV daily at the time of discharge Total course to be 14 days (11/28-12/11) Midline to be placed today to facilitate above antibiotic course. Patient has a urostomy in place. LICO is currently improving CT abd/pelvis 11/27/22: no acute abnormalities. 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 Bilateral nonobstructing renal calculi, stable R renal cyst of 1.5cm DNR/DNI Lovenox for DVT prophylaxis All updates discussed with patient's daughter Valeria White Medical Necessity Statement*: Repeat blood cultures to a certain clearance, midline today to enable 14 days of IV antibiotic treatment Coding Level of Care Code Acute Code for g Fwd Diagnoses Urinary tract infection N39.0 Altered mental status R41.82 Volume overload E87.70 LICO (acute kidney injury) N17.9 E coli bacteremia R78.81; B96.20
[2022-12-01] MEDS: atorvastatin 40 mg Tablet PO (18:08)
[2022-12-01] MEDS: CLONazepam 1 mg Tablet PO (18:08)
[2022-12-01] MEDS: mirtazapine 30 mg Tablet PO (20:26)
[2022-12-02] VITALS (8 sets, daily range): BP systolic 113–130; BP diastolic 77–89; PULSE 62–89; RESP 16–20; TEMP 36.4–37.1; O2SAT 92–98
[2022-12-02] MEDS: piperacillin-tazobactam 3.375 GM in sodium chloride 0.9% (plus) 50 ML IV ×2 (00:07→10:14)
[2022-12-02] MEDS: pantoprazole DR 40 mg Tablet PO (10:15)
[2022-12-02] MEDS: levothyroxine 100 mcg Tablet PO (10:16)
[2022-12-02] MEDS: polyethylene glycol 3350 Pkt 17 gm 4 GM PO (10:16)
[2022-12-02] MEDS: cholecalciferol (vitamin D3) 5,000 unit Tablet 5000 UNIT PO (10:16)
[2022-12-02] MEDS: aspirin 81 mg EC Tablet PO (10:16)
--- NOTE | 2022-12-02 10:49 | PC.SOCIAL ---
IMM Update pg 2 of IMM updated w/ patients daughter as patient is not alert and oriented. Copy left @ bedside and Copy in chart dated, and initialed. Daughter does take 800 number as she feels like patient is not ready for DC @ this time.
[2022-12-02] MEDS: ertapenem 1,000 MG in sodium chloride 0.9% (plus) 100 ML 200 MG IV (10:52)
[2022-12-02] MEDS: enoxaparin 30 mg/0.3 mL Syringe SUBCUT (11:13)
--- NOTE | 2022-12-02 12:37 | PC.SOCIAL ---
Detailed Notice of Discharge: Detailed notice of discharge completed. Called and discussed with patient's daughter, CHRISTEN Shaw over the phone. Reviewed with patient at bedside, copy provided, and copy placed in chart.
--- NOTE | 2022-12-02 14:39 | PM.DCS ---
Discharge Providers Date of Admission: 11/27/22 20:28 Date of Discharge: December 02, 2022 Attending Provider at Admission: Olena Herrera MD Attending Provider at Discharge: Phoebe Das MD Diagnoses at Discharge Discharge Diagnosis (1) Urinary tract infection: Status: Acute (2) Altered mental status: Status: Acute (3) Volume overload: Status: Acute (4) LICO (acute kidney injury): Status: Acute (5) E coli bacteremia: Status: Acute Reason for Visit Reason for Visit: UTI, sepsis Brief History: Esperanza Duran is a 87 year old female with a past medical history of bladder cancer status post cystectomy with urostomy currently in place. He has been a alf resident for about a year now. She was sent from the alf after noting to have a fever of 102.3 and altered mental status in which he appeared to be more confused than baseline. Upon admission she was unable to answer any questions but was following commands. During the course of her admission she was found to have E. coli bacteremia likely from a UTI. Hospital course as below: Hospital Course Hospital Course # Altered mental status related to metabolic encephalopathy from complicated UTI with ESBL E. coli and resulting bacteremia. Mental status started to improve during the course of admission. Currently patient is able to correctly state her name, able to correctly tell me her date of , able to tell me that she is in a hospital in [place]. She does not know the year, guessed it at 2000. She is able to tell me that she is here from a alf because she is sick however does not know the details. She has poor short-term memory at this time. No current signs of meningitis. Given overall improvement with treatment of UTI and bacteremia, suspect chief component to be metabolic encephalopathy which is resolving. CT head without acute abnormalities #ESBL E. coli bacteremia Source likely to be UTI given recovery of same organism from urine Blood culture last positive from 11/27/2022. Repeat blood culture from December 01 negative to date Treated with piperacillin/tazobactam as an inpatient in keeping with culture results. transitioned to ertapenem 1 g IV daily at the time of discharge Total course to be 14 days (11/28-12/11) Midline placed on 12/01 to facilitate above antibiotic course at SNF. Patient has a urostomy in place.? LICO is currently improving CT abd/pelvis 11/27/22: no acute abnormalities. 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 Bilateral nonobstructing renal calculi, stable R renal cyst of 1.5cm. Continued stoma care per [place] physician/ patient's urologist Physical Exam Narrative: General: No acute distress, AO x2-3 HEENT: PERRLA, pupils bilaterally equal and reactive, pallors not present Chest: Normal vesicular breath sounds, no added sounds, equal good air entry bilaterally CVS: S1-S2 regular, no murmurs, no tachycardia, no gallops, no rubs Abdomen: Soft, nontender, no organomegaly, bowel sounds present, urostomy bag in place Neuro: No focal deficits, no facial deformity, AO x2-3, power 5/5 in all limbs Discharge Data Studies Completed and Pending Completed Studies During Hospitalization Category Date Time Status CT chest abdomen pelvis [[place] [id number] Cat Scan 11/27/22 23:56 Completed ] Urgent CT head wo con* [id number] Stat Cat Scan 11/27/22 18:39 Completed XR chest 1V portable [id number] Stat Exams 11/27/22 17:45 Completed Pending at discharge Category Date Time Status Blood Culture Stat Lab 11/27/22 18:15 Results Blood Culture Stat Lab 12/01/22 13:35 Results Radiology Impressions Chest X-Ray 11/27/22 17:45 IMPRESSION: No acute findings. Head CT 11/27/22 18:39 IMPRESSION: No acute intracranial abnormality. Chest/Abdomen/Pelvis CT 11/27/22 23:56 IMPRESSION: 1. Background of centrilobular emphysema, bronchiectasis and pulmonary fibrosis. Patchy ground-glass opacities in the lung bases bilaterally may represent pulmonary fibrosis although bilateral basilar interstitial pneumonitis cannot be excluded. 2. Aneurysmal dilatation of the descending thoracic aorta without evidence of dissection or extravasation. Proximal descending thoracic aorta measures 3.7 cm, the distal descending thoracic aorta measures 5.1 cm at the aortic hiatus. This appears more prominent today compared with 04/12/2022. IMPRESSION: 1. There are no acute abdominal findings. 2. There is hydronephrosis and hydroureter in this patient is status post cystectomy and ileostomy. This is similar to that seen on 04/12/2022 however. 3. Bilateral nonobstructing renal calculi 4. Stable right renal cysts, the largest measuring 1.5 cm. No further workup needed. Laboratory Results WBC 7.9 10^3/uL (4.0-10.0) 11/30/22 04:55 RBC 4.52 10^6/uL (4.1-5.3) 11/30/22 04:55 Hgb 13.2 g/dL (11.5-15.3) 11/30/22 04:55 Hct 41.1 % (37.0-47.0) 11/30/22 04:55 MCV 90.9 fl (81-99) 11/30/22 04:55 MCH 29.2 pg (28.0-34.0) 11/30/22 04:55 MCHC 32.1 g/dL (30.0-36.0) 11/30/22 04:55 RDW 13.7 % (12.1-15.1) 11/30/22 04:55 Plt Count 201 10^3/cmm (130-400) 11/30/22 04:55 MPV 11.5 fL (7.4-10.4) H 11/30/22 04:55 Neut % (Auto) 63.5 % 11/30/22 04:55 Lymph % (Auto) 19.3 % 11/30/22 04:55 [place] % (Auto) 10.5 % 11/30/22 04:55 Eos % (Auto) 5.5 % 11/30/22 04:55 Baso % (Auto) 0.8 % 11/30/22 04:55 Neut # (Auto) 5.01 10^3/uL (1.8-7.7) 11/30/22 04:55 Lymph # (Auto) 1.5 10^3/uL (0.8-4.8) 11/30/22 04:55 [place] # (Auto) 0.8 10^3/uL (0.2-0.9) 11/30/22 04:55 Eos # (Auto) 0.4 10^3/uL (0.0-0.8) 11/30/22 04:55 Baso # (Auto) 0.1 10^3/uL (0.0-0.1) 11/30/22 04:55 Nucleated RBC % (auto) 0 % 11/30/22 04:55 Nucleated RBCs # 0.0 /100WBC 11/30/22 04:55 Sodium 138 mmol/L (136-145) 12/01/22 04:24 Potassium 4.1 mmol/L (3.5-5.1) 12/01/22 04:24 Chloride 107 mmol/L (98-107) 12/01/22 04:24 Carbon Dioxide 18 mmol/L (22-29) L 12/01/22 04:24 Anion Gap 17.1 (5-19) 12/01/22 04:24 BUN 33 mg/dL (8-23) H 12/01/22 04:24 Creatinine 1.2 mg/dL (0.5-0.9) H 12/01/22 04:24 GFR Calculation Not Reportable 12/01/22 04:24 Glucose 119 mg/dL (65-115) H 12/01/22 04:24 Calculated Osmolality 294 mOsm/kg (285-295) 12/01/22 04:24 Lactic Acid Cancelled 11/27/22 18:15 Lactate 1.5 mmol/L (0.5-2.2) 11/27/22 19:35 Calcium 9.1 mg/dL (8.5-10.5) 12/01/22 04:24 Magnesium 1.9 mg/dL (1.7-2.3) 11/28/22 02:22 Total Bilirubin 0.7 mg/dL (0.15-1.2) 11/30/22 04:55 AST 80 U/L (0-32) H 11/30/22 04:55 ALT 64 U/L (0-33) H 11/30/22 04:55 Alkaline Phosphatase 113 U/L (35-105) H 11/30/22 04:55 Ammonia 19 umol/L (11-51) 11/27/22 02:22 NT-Pro-B Natriuret Pep 632 pg/mL (0-450) H 11/28/22 02:22 Total Protein 7.0 g/dL (6.6-8.7) 11/30/22 04:55 Albumin 3.1 g/dL (3.5-5.2) L 11/30/22 04:55 Globulin 3.9 g/dL (1.3-4.6) 11/30/22 04:55 Vitamin B12 412 pg/mL (232-1245) 11/28/22 02:22 Procalcitonin 0.71 ng/mL (0-0.5) H 11/27/22 18:15 TSH 0.63 uIU/mL (0.27-4.20) 11/28/22 02:22 Urine Color Yellow (Yellow) 11/27/22 19:20 Urine Appearance Cloudy (CLEAR) A 11/27/22 19:20 Urine pH 6 (5-7) 11/27/22 19:20 Ur Specific Ubly 1.015 (1.005-1.030) 11/27/22 19:20 Urine Protein Trace (Negative) 11/27/22 19:20 Urine Glucose (UA) Norm (Normal) 11/27/22 19:20 Urine Ketones Negative (Negative) 11/27/22 19:20 Urine Blood 3+ (Negative) H 11/27/22 19:20 Urine Nitrate Negative (Negative) 11/27/22 19:20 Urine Bilirubin Neg (Negative) 11/27/22 19:20 Urine Urobilinogen Norm mg/dL (Negative) 11/27/22 19:20 Ur Leukocyte Esterase 2+ (Negative) H 11/27/22 19:20 Urine RBC 0-4 /hpf (0-2) H 11/27/22 19:20 Urine WBC Too numerous to cnt /hpf (0-5) H 11/27/22 19:20 Ur Squamous Epith Cells None /hpf (0-5) 11/27/22 19:20 Amorphous Sediment Not Reportable 11/27/22 19:20 Urine Bacteria 2+ /hpf (NONE) H 11/27/22 19:20 SARS-CoV-2 Ag (Rapid) negative (Negative) 12/01/22 07:42 Vitals Last Vital Signs Temp 97.6 F 12/02/22 12:00 Pulse 84 12/02/22 12:00 Resp 20 H 12/02/22 12:00 BP 113/77 12/02/22 12:00 Pulse Ox 96 12/02/22 12:00 O2 Del Method Room Air 12/02/22 12:00 O2 Flow Rate 2 12/01/22 20:00 Discharge Plan Discharge Patient Disposition: Xfer [facility] Condition: Stable Prescriptions: Continued aspirin 325 mg Tablet 325 mg PO DAILY levothyroxine 75 mcg tablet 75 mcg PO DAILY docusate sodium [Colace] 100 mg Capsule 200 mg PO DAILY multivitamin Tablet 1 tab PO DAILY atorvastatin 40 mg tablet 20 mg PO QPM acetaminophen 325 mg Tablet 650 mg PO DAILY hydrocodone-acetaminophen 5-325 mg Tablet 1 tab PO Q6H PRN (Reason: Pain) clonazepam 1 mg tablet 1 mg PO QPM magnesium hydroxide [Milk of Magnesia] 400 mg/5 mL Suspension 30 ml PO DAILY PRN (Reason: Constipation) pantoprazole 40 mg tablet,delayed release (DR/EC) 40 mg PO DAILY bisacodyl 5 mg Tablet,Delayed Release (Dr/Ec) 5 mg PO DAILY PRN (Reason: Constipation) mirtazapine [Remeron] 15 mg Tablet 30 mg PO BEDTIME polyethylene glycol 3350 [Miralax] 17 gram/dose Powder 4 g PO DAILY Acidophilus Capsule 100 mg PO QPM PRN (Reason: Constipation) melatonin 1 mg Tablet 1 mg PO QPM omega-3 fatty acids 500 mg Capsule 500 mg PO DAILY Discontinued ciprofloxacin HCl 250 mg tablet 250 mg PO BID Discharge Orders: Discharge Order (Routine); Ordered 12/02/22 Ordered By: Phoebe Das Referrals: [facility] [Outside] Discharge Diet: As Directed Discharge Activity: Resume usual activity Patient Instructions: Bacteremia (GEN), Midline Catheter (GEN), Opioid Safety Discharge Attestations Time Spent in Discharge Care*: greater than 30 min Quality Metrics Clinical Quality Measures [ No reported AMI, CVA or VTE this stay] Coding Level of Care Code Acute Code for Chg Fwd Diagnoses Urinary tract infection N39.0 Altered mental status R41.82 Volume overload E87.70 LICO (acute kidney injury) N17.9 E coli bacteremia R78.81; B96.20
[2022-12-02] MEDS: CLONazepam 1 mg Tablet PO (17:20)
[2022-12-02] MEDS: atorvastatin 40 mg Tablet PO (17:20)
[2022-12-02] MEDS: mirtazapine 30 mg Tablet PO (20:30)
[2022-12-03] VITALS (14 sets, daily range): BP systolic 122–155; BP diastolic 62–100; PULSE 64–98; RESP 15–18; TEMP 36.4–37; O2SAT 94–96
[2022-12-03] MEDS: levothyroxine 100 mcg Tablet PO (08:34)
[2022-12-03] MEDS: polyethylene glycol 3350 Pkt 17 gm 4 GM PO (08:34)
[2022-12-03] MEDS: pantoprazole DR 40 mg Tablet PO (08:34)
[2022-12-03] MEDS: aspirin 81 mg EC Tablet PO (08:34)
[2022-12-03] MEDS: cholecalciferol (vitamin D3) 5,000 unit Tablet 5000 UNIT PO (08:34)
[2022-12-03] MEDS: ertapenem 1,000 MG in sodium chloride 0.9% (plus) 100 ML 200 MG IV (11:15)
[2022-12-03] MEDS: enoxaparin 30 mg/0.3 mL Syringe SUBCUT (12:05)
--- NOTE | 2022-12-03 16:45 | PM.PN ---
Subjective Subjective: No acute interim events. Patient was discharged yesterday, however family appealed the discharge therefore patient was unable to go to residential. Today she is more alert than previously. Collectively tells me her name, birthday, the fact that she is in [place]. She does not know the ER. Thinks it is 2000. She knows she is here because of an infection but states that I will not answer any questions regarding the details because I know I get confused . Afebrile, hemodynamically stable. Medications: Reviewed: Yes Vitals/I&O/Wt Last Vital Signs Temp 97.7 F 12/03/22 15:25 Pulse 86 12/03/22 15:25 Resp 17 12/03/22 15:25 BP 155/99 12/03/22 15:25 Pulse Ox 95 12/03/22 15:25 O2 Del Method Room Air 12/03/22 07:59 O2 Flow Rate 2 12/02/22 20:00 12/03/22 12/03/22 12/03/22 06:59 14:59 22:59 Intake Total 340 / 340 Output Total 1000 / 2550 500 / 500 Balance -1000 / -1905 -160 / -160 Physical Exam Narrative: General: No acute distress, AO x2-3 HEENT: PERRLA, pupils bilaterally equal and reactive, pallors not present Chest: Normal vesicular breath sounds, no added sounds, equal good air entry bilaterally CVS: S1-S2 regular, no murmurs, no tachycardia, no gallops, no rubs Abdomen: Soft, nontender, no organomegaly, bowel sounds present Neuro: No focal deficits, no facial deformity, AO x2-3, power 5/5 in all limbs, does not know time or year. Data 11/30/22 04:55 12/01/22 04:24 Micro: Microbiology 11/27/22 18:24 Blood Culture - Final Blood NO GROWTH AFTER 5 DAYS 12/01/22 13:35 Blood Culture - Preliminary Blood NEGATIVE TO DATE 12/01/22 13:35 Blood Culture - Preliminary Blood NEGATIVE TO DATE A&P Assessment and plan (1) Urinary tract infection: (2) Altered mental status: (3) Volume overload: (4) LICO (acute kidney injury): (5) E coli bacteremia: Plan Altered mental status Related to metabolic encephalopathy from complicated UTI with ESBL E. coli and resulting bacteremia. Blood culture last positive from 11/27/2022. repeat blood culture to ensure clearance negative to date. Received treatment with piperacillin/tazobactam ---> transition to ertapenem 1 g IV daily at time of discharge Total course to be 14 days (11/28-12/11) Midline placed, midline care at [facility] Patient has a urostomy in place. LICO is currently improving CT abd/pelvis 11/27/22: no acute abnormalities. 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 Bilateral nonobstructing renal calculi, stable R renal cyst of 1.5cm DNR/DNI Lovenox for DVT prophylaxis Attestations Medical Necessity Statement*: Awaiting discharge, iv abx today Coding Level of Care Code Acute Code for Chg Fwd Moderate MDM includes number and complexity of problems actively addressed during encounter, amount and/or complexity of data reviewed/ordered and described risk of complication, morbidity or mortality of management as documented Diagnoses Urinary tract infection N39.0 Altered mental status R41.82 Volume overload E87.70 LICO (acute kidney injury) N17.9 E coli bacteremia R78.81; B96.20
[2022-12-03] MEDS: atorvastatin 40 mg Tablet PO (17:40)
[2022-12-03] MEDS: mirtazapine 30 mg Tablet PO (20:25)
[2022-12-04] VITALS: BP 129/89; PULSE 92; RESP 18; TEMP 36.8
[2022-12-04 03:37] VITALS: BP 129/89; PULSE 92; RESP 18; TEMP 36.8
[2022-12-04 04:30] VITALS: BP 128/93; PULSE 84; RESP 16; TEMP 36.2; O2SAT 92
[2022-12-04 07:53] VITALS: BP 127/88; PULSE 68; RESP 15; TEMP 36.4; O2SAT 94
[2022-12-04] MEDS: pantoprazole DR 40 mg Tablet PO (08:47)
[2022-12-04] MEDS: polyethylene glycol 3350 Pkt 17 gm 4 GM PO (08:47)
[2022-12-04] MEDS: aspirin 81 mg EC Tablet PO (08:47)
[2022-12-04] MEDS: cholecalciferol (vitamin D3) 5,000 unit Tablet 5000 UNIT PO (08:47)
[2022-12-04] MEDS: levothyroxine 100 mcg Tablet PO (08:47)
--- NOTE | 2022-12-04 10:45 | PC.NURSE ---
Call from [facility]: [facility] called stating, We were under the impression that she would be discharged on IV antibiotics. I am only seeing one order of oral antibiotics and it says discontinued. Pt discharged with midline to left basilic vein. This nurse viewed chart and discharge summary while on the phone with [facility]. This nurse also saw only one form of antibiotic which was oral Ciprofloxacin HCL 250 mg tablet 250 mg oral twice a day Doctor's Order Last Taken: 11/27/22 0900 and listed under the 'Discontinued Medications (1) These are medications to stop taking at home.' This nurse asked nursing staff at [facility] if it would be appropriate to call back after clarification from Dr. Das as to if pt needed midline to stay since there were no active orders for IV antibiotics. Dr. Das approached nurses station shortly after hanging up with [facility]. Pt chart pulled up for viewing with Dr. Das. This nurse stated to Dr. Das, Pt was discharged with midline for outpatient IV antibiotics. The alf called and I have looked at the chart and neither of us are seeing an order for IV antibiotics, only oral. Does pt need to keep the midline in at alf and does she need additional orders for any form of antibiotics? Dr. Das viewed chart and stated, Pt finished her course of antibiotics on this hospital stay. Pull the midline. This nurse called [facility] back and informed the DON, per Dr. Das, pt had finished course of antibiotics while in the hospital and no longer required the midline. This nurse apologized for any confusion and for not removing midline upon discharge. Aleksandra (nurse linen manager) notified of phone conversation and conversation with Dr. Das.
--- NOTE | 2022-12-04 10:46 | PM.DCS ---
Discharge Providers Date of Admission: 11/27/22 20:28 Date of Discharge: December 04, 2022 Attending Provider at Admission: Olena Herrera MD Attending Provider at Discharge: Phoebe Das MD Diagnoses at Discharge Discharge Diagnosis (1) Urinary tract infection: Status: Acute (2) Altered mental status: Status: Acute (3) Volume overload: Status: Acute (4) LICO (acute kidney injury): Status: Acute (5) E coli bacteremia: Status: Acute Reason for Visit Reason for Visit: UTI, sepsis Hospital Course Hospital Course # Altered mental status related to metabolic encephalopathy from complicated UTI with ESBL E. coli and resulting bacteremia. Mental status started to improve during the course of admission. Currently patient is able to correctly state her name, able to correctly tell me her date of , able to tell me that she is in a hospital in [place]. She does not know the year, guessed it at 2000. She is able to tell me that she is here from a intermediate because she is sick however does not know the details. She has poor short-term memory at this time. No current signs of meningitis. Given overall improvement with treatment of UTI and bacteremia, suspect chief component to be metabolic encephalopathy which is resolving. CT head without acute abnormalities #ESBL E. coli bacteremia Source likely to be UTI given recovery of same organism from urine Blood culture last positive from 11/27/2022. Repeat blood culture from December 01 negative to date Treated with piperacillin/tazobactam as an inpatient in keeping with culture results. transitioned to ertapenem 1 g IV daily at the time of discharge Total course to be 14 days (11/28-12/11) Midline placed on 12/01 to facilitate above antibiotic course at SNF. Patient has a urostomy in place.? LICO is currently improving CT abd/pelvis 11/27/22: no acute abnormalities. 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 Bilateral nonobstructing renal calculi, stable R renal cyst of 1.5cm. Continued stoma care per [place] physician/ patient's urologist Patient was originally planned to be discharged on 12/02 however family appealed the discharge with insurance, hence patient eventually discharged on 12/04. No acute interim events. Patient continues to clinically improve Physical Exam Narrative: General: No acute distress, AO x3 HEENT: PERRLA, pupils bilaterally equal and reactive, pallors not present Chest: Normal vesicular breath sounds, no added sounds, equal good air entry bilaterally CVS: S1-S2 regular, no murmurs, no tachycardia, no gallops, no rubs Abdomen: Soft, nontender, no organomegaly, bowel sounds present Neuro: No focal deficits, no facial deformity, AO x3, power 5/5 in all limbs Discharge Data Studies Completed and Pending Completed Studies During Hospitalization Category Date Time Status CT chest abdomen pelvis [[place] [id number] Cat Scan 11/27/22 23:56 Completed ] Urgent CT head wo con* [id number] Stat Cat Scan 11/27/22 18:39 Completed XR chest 1V portable [id number] Stat Exams 11/27/22 17:45 Completed Pending at discharge Category Date Time Status Blood Culture Stat Lab 12/01/22 13:35 Results Radiology Impressions Chest X-Ray 11/27/22 17:45 IMPRESSION: No acute findings. Head CT 11/27/22 18:39 IMPRESSION: No acute intracranial abnormality. Chest/Abdomen/Pelvis CT 11/27/22 23:56 IMPRESSION: 1. Background of centrilobular emphysema, bronchiectasis and pulmonary fibrosis. Patchy ground-glass opacities in the lung bases bilaterally may represent pulmonary fibrosis although bilateral basilar interstitial pneumonitis cannot be excluded. 2. Aneurysmal dilatation of the descending thoracic aorta without evidence of dissection or extravasation. Proximal descending thoracic aorta measures 3.7 cm, the distal descending thoracic aorta measures 5.1 cm at the aortic hiatus. This appears more prominent today compared with 04/12/2022. IMPRESSION: 1. There are no acute abdominal findings. 2. There is hydronephrosis and hydroureter in this patient is status post cystectomy and ileostomy. This is similar to that seen on 04/12/2022 however. 3. Bilateral nonobstructing renal calculi 4. Stable right renal cysts, the largest measuring 1.5 cm. No further workup needed. Laboratory Results WBC 7.9 10^3/uL (4.0-10.0) 11/30/22 04:55 RBC 4.52 10^6/uL (4.1-5.3) 11/30/22 04:55 Hgb 13.2 g/dL (11.5-15.3) 11/30/22 04:55 Hct 41.1 % (37.0-47.0) 11/30/22 04:55 MCV 90.9 fl (81-99) 11/30/22 04:55 MCH 29.2 pg (28.0-34.0) 11/30/22 04:55 MCHC 32.1 g/dL (30.0-36.0) 11/30/22 04:55 RDW 13.7 % (12.1-15.1) 11/30/22 04:55 Plt Count 201 10^3/cmm (130-400) 11/30/22 04:55 MPV 11.5 fL (7.4-10.4) H 11/30/22 04:55 Neut % (Auto) 63.5 % 11/30/22 04:55 Lymph % (Auto) 19.3 % 11/30/22 04:55 Amelia % (Auto) 10.5 % 11/30/22 04:55 Eos % (Auto) 5.5 % 11/30/22 04:55 Baso % (Auto) 0.8 % 11/30/22 04:55 Neut # (Auto) 5.01 10^3/uL (1.8-7.7) 11/30/22 04:55 Lymph # (Auto) 1.5 10^3/uL (0.8-4.8) 11/30/22 04:55 Amelia # (Auto) 0.8 10^3/uL (0.2-0.9) 11/30/22 04:55 Eos # (Auto) 0.4 10^3/uL (0.0-0.8) 11/30/22 04:55 Baso # (Auto) 0.1 10^3/uL (0.0-0.1) 11/30/22 04:55 Nucleated RBC % (auto) 0 % 11/30/22 04:55 Nucleated RBCs # 0.0 /100WBC 11/30/22 04:55 Sodium 138 mmol/L (136-145) 12/01/22 04:24 Potassium 4.1 mmol/L (3.5-5.1) 12/01/22 04:24 Chloride 107 mmol/L (98-107) 12/01/22 04:24 Carbon Dioxide 18 mmol/L (22-29) L 12/01/22 04:24 Anion Gap 17.1 (5-19) 12/01/22 04:24 BUN 33 mg/dL (8-23) H 12/01/22 04:24 Creatinine 1.2 mg/dL (0.5-0.9) H 12/01/22 04:24 GFR Calculation Not Reportable 12/01/22 04:24 Glucose 119 mg/dL (65-115) H 12/01/22 04:24 Calculated Osmolality 294 mOsm/kg (285-295) 12/01/22 04:24 Lactic Acid Cancelled 11/27/22 18:15 Lactate 1.5 mmol/L (0.5-2.2) 11/27/22 19:35 Calcium 9.1 mg/dL (8.5-10.5) 12/01/22 04:24 Magnesium 1.9 mg/dL (1.7-2.3) 11/28/22 02:22 Total Bilirubin 0.7 mg/dL (0.15-1.2) 11/30/22 04:55 AST 80 U/L (0-32) H 11/30/22 04:55 ALT 64 U/L (0-33) H 11/30/22 04:55 Alkaline Phosphatase 113 U/L (35-105) H 11/30/22 04:55 Ammonia 19 umol/L (11-51) 11/27/22 02:22 NT-Pro-B Natriuret Pep 632 pg/mL (0-450) H 11/28/22 02:22 Total Protein 7.0 g/dL (6.6-8.7) 11/30/22 04:55 Albumin 3.1 g/dL (3.5-5.2) L 11/30/22 04:55 Globulin 3.9 g/dL (1.3-4.6) 11/30/22 04:55 Vitamin B12 412 pg/mL (232-1245) 11/28/22 02:22 Procalcitonin 0.71 ng/mL (0-0.5) H 11/27/22 18:15 TSH 0.63 uIU/mL (0.27-4.20) 11/28/22 02:22 Urine Color Yellow (Yellow) 11/27/22 19:20 Urine Appearance Cloudy (CLEAR) A 11/27/22 19:20 Urine pH 6 (5-7) 11/27/22 19:20 Ur Specific [place] 1.015 (1.005-1.030) 11/27/22 19:20 Urine Protein Trace (Negative) 11/27/22 19:20 Urine Glucose (UA) Norm (Normal) 11/27/22 19:20 Urine Ketones Negative (Negative) 11/27/22 19:20 Urine Blood 3+ (Negative) H 11/27/22 19:20 Urine Nitrate Negative (Negative) 11/27/22 19:20 Urine Bilirubin Neg (Negative) 11/27/22 19:20 Urine Urobilinogen Norm mg/dL (Negative) 11/27/22 19:20 Ur Leukocyte Esterase 2+ (Negative) H 11/27/22 19:20 Urine RBC 0-4 /hpf (0-2) H 11/27/22 19:20 Urine WBC Too numerous to cnt /hpf (0-5) H 11/27/22 19:20 Ur Squamous Epith Cells None /hpf (0-5) 11/27/22 19:20 Amorphous Sediment Not Reportable 11/27/22 19:20 Urine Bacteria 2+ /hpf (NONE) H 11/27/22 19:20 SARS-CoV-2 Ag (Rapid) negative (Negative) 12/01/22 07:42 Vitals Last Vital Signs Temp 97.5 F L 12/04/22 07:53 Pulse 68 12/04/22 07:53 Resp 15 12/04/22 07:53 BP 127/88 12/04/22 07:53 Pulse Ox 94 12/04/22 07:53 O2 Del Method Room Air 12/04/22 08:00 O2 Flow Rate 2 12/03/22 20:00 Discharge Plan Discharge Patient Disposition: Xfer SNF Condition: Stable Prescriptions: Continued aspirin 325 mg Tablet 325 mg PO DAILY levothyroxine 75 mcg tablet 75 mcg PO DAILY docusate sodium [Colace] 100 mg Capsule 200 mg PO DAILY multivitamin Tablet 1 tab PO DAILY atorvastatin 40 mg tablet 20 mg PO QPM acetaminophen 325 mg Tablet 650 mg PO DAILY hydrocodone-acetaminophen 5-325 mg Tablet 1 tab PO Q6H PRN (Reason: Pain) clonazepam 1 mg tablet 1 mg PO QPM magnesium hydroxide [Milk of Magnesia] 400 mg/5 mL Suspension 30 ml PO DAILY PRN (Reason: Constipation) pantoprazole 40 mg tablet,delayed release (DR/EC) 40 mg PO DAILY bisacodyl 5 mg Tablet,Delayed Release (Dr/Ec) 5 mg PO DAILY PRN (Reason: Constipation) mirtazapine [Remeron] 15 mg Tablet 30 mg PO BEDTIME polyethylene glycol 3350 [Miralax] 17 gram/dose Powder 4 g PO DAILY Acidophilus Capsule 100 mg PO QPM PRN (Reason: Constipation) melatonin 1 mg Tablet 1 mg PO QPM omega-3 fatty acids 500 mg Capsule 500 mg PO DAILY Discontinued ciprofloxacin HCl 250 mg tablet 250 mg PO BID Discharge Orders: Discharge Order (Routine); Ordered 12/02/22 Ordered By: Phoebe Das Referrals: [facility] [Outside] Discharge Diet: As Directed Discharge Activity: Resume usual activity Patient Instructions: Bacteremia (GEN), Midline Catheter (GEN), Opioid Safety Discharge Attestations Time Spent in Discharge Care*: greater than 30 min Quality Metrics Clinical Quality Measures [ No reported AMI, CVA or VTE this stay] Coding Level of Care Code Acute Code for Chg Fwd Diagnoses Urinary tract infection N39.0 Altered mental status R41.82 Volume overload E87.70 LICO (acute kidney injury) N17.9 E coli bacteremia R78.81; B96.20
== END 2022-12-04 09:53 | disposition skilled nursing facility (03) | DRG 689 ==
LOC: ER 20:37 → MEDSURG 20:41
PROVIDERS: Family Medicine; Admitting Provider Internal Medicine; Emergency Provider Emergency Medicine; Visit Provider Student in an Organized Health Care Education/Training Program
DX: N39.0 Urinary tract infection, site not specified (principal); G93.41 Metabolic encephalopathy; Z16.12 Extended spectrum beta lactamase (ESBL) resistance; N17.9 Acute kidney failure, unspecified; R78.81 Bacteremia; B96.20 Unspecified Escherichia coli [E. coli] as the cause of diseases classified elsewhere; Z85.51 Personal history of malignant neoplasm of bladder; Z93.2 Ileostomy status; E03.9 Hypothyroidism, unspecified; K21.9 Gastro-esophageal reflux disease without esophagitis; N18.9 Chronic kidney disease, unspecified; E87.70 Fluid overload, unspecified; Z66 Do not resuscitate; E87.6 Hypokalemia
CPT/HCPCS: 36415; 36569; 70450; 71045; 71250; 74176; 80048; 80053; 81001; 82140; 82607; 83605; 83735; 83880; 84145; 84443; 85025; 87040; 87077; 87086; 87150; 87186; 87205; 87426; 94640; 94664; 96361; 96365; 96372; 97163; 97530; 99285; C1751; J1335; J1644; J1650; J2543; J3370; J7030; J7050

== ENCOUNTER 2022-12-10 17:14 | Observation (INO) | payer MEDICARE, OTHER, MEDICAID, SELFPAY ==
[2022-12-10 17:17] VITALS: BP 129/92; PULSE 98; TEMP 37.1; O2SAT 94; BMI 22.1
[2022-12-10 17:24] VITALS: BP 121/87; PULSE 98; RESP 18; O2SAT 92
--- NOTE | 2022-12-10 17:48 | XRR_ITS ---
PROCEDURE INFORMATION: Exam: XR Lumbosacral Spine Exam date and time: 12/10/2022 6:04 PM Age: 87 years old Clinical indication: Low back pain; Additional info: Fall TECHNIQUE: Imaging protocol: Radiologic exam of the lumbosacral spine. Views: 2 or 3 views. COMPARISON: [place] [id number] 11/28/2022 12:48 AM FINDINGS: Bones/joints: Multilevel moderate to severe disc space narrowing throughout the spine most significant at L4-L5 with multilevel productive degenerative endplate changes. Soft tissues: Unremarkable. Vasculature: Scattered vascular calcifications. XR/XR lumbar spine 2-3V* [id number] IMPRESSION: 1. Multilevel moderate to severe disc space narrowing throughout the spine most significant at L4-L5 with multilevel productive degenerative endplate changes. 2. Scattered vascular calcifications.
--- NOTE | 2022-12-10 18:00 | ED_ITS ---
HPI - Female Genitourinary General: Chief complaint: Urogenital-Female Stated complaint: UTI Time Seen by Provider: 12/10/22 17:30 Source: patient and EMS Mode of arrival: EMS Limitations: altered mental status History of Present Illness: 87-year-old female who has history of dementia is here from the retirement. Patient has been seen here a few weeks ago diagnosed with a UTI she has been at the retirement on treatment for the UTI the states that she has not seem to get any better she has no complaints here she is demented but she denies any pain she is afebrile. She did have a recent fall that states that she had some low back pain but she denies any pain to me. Review of Systems General: Reports: ROS unobtainable due to mental status PFSH ED PFSH: Medical History Bladder cancer Breast cancer Essential hypertension GERD (gastroesophageal reflux disease) Hyperlipidemia Hypothyroidism Insomnia Medical history unknown TIA (transient ischemic attack) Vitamin D deficiency Surgical History Surgical history unknown Social History Lives independently: No Housing: Retirement Physical Exam Const: COMMON NORMALS: alert; negative for patient oriented x3 ORIENTATION/CONSCIOUSNESS: Yes oriented to person; not oriented to place and not oriented to time HENMT: COMMON NORMALS: normocephalic and atraumatic HEAD & SCALP: normocephalic and atraumatic Eye: COMMON NORMALS: Equal, round and reactive pupils present and EOMs intact bilaterally PUPIL: Yes Equal, round and reactive pupils present Neck/C-Spine: COMMON NORMALS: full ROM and supple Chest: COMMONS NORMALS: normal inspection of the chest and normal palpation of entire chest wall Resp: COMMON NORMALS: normal respiratory effort, No retractions, No use of accessory muscles and clear to auscultation bilaterally AUSCULTATION: clear to auscultation bilaterally Cardio: COMMON NORMALS: regular rate, regular rhythm and No murmurs present (Cardio) RATE: regular rate RHYTHM: regular rhythm GI: COMMON NORMALS: Normal to inspection, nondistended, normoactive bowel sounds present, Soft to palpation, non-tender and no masses PALPATION: Yes Soft to palpation OTHER: Urostomy in place and functioning Extremity: COMMON NORMALS: normal to inspection and full ROM Neuro: COMMON NORMALS: moves all extremities and no focal motor deficits; negative for patient oriented x3 SENSORIUM/ORIENTATION: Yes alert, Yes oriented to person, No oriented to place and No oriented to time Psych: COMMON NORMALS: mental status grossly normal, Normal thought process present and cooperative THOUGHT PROCESS: Normal thought process present Skin: COMMON NORMALS: no rashes or lesions noted and no wounds GENERAL SKIN EXAM: no rashes or lesions noted Course Vital Signs: Vital signs: Vital Signs Temperature 98.7 F 12/10/22 17:17 Pulse Rate 95 12/10/22 18:24 Respiratory Rate 18 12/10/22 18:24 Blood Pressure 117/82 12/10/22 18:24 Pulse Oximetry 94 12/10/22 18:24 Oxygen Delivery Me thod Room Air 12/10/22 17:24 MDM - Female Medical Decision Making Patient presents here with concerns of her urinary tract infection not being fully treated she has been on IV antibiotics through a PICC line UA here is normal she has no complaints she is afebrile she did have a fall x-rays normal she refused blood draw she stable for discharge back to retirement. Lab Data Radiology Impressions Lumbar Spine X-Ray 12/10/22 17:48 IMPRESSION: 1. Multilevel moderate to severe disc space narrowing throughout the spine most significant at L4-L5 with multilevel productive degenerative endplate changes. 2. Scattered vascular calcifications. Laboratory Results Urine Color Yellow (Yellow) 12/10/22 17:49 Urine Appearance Clear (CLEAR) 12/10/22 17:49 Urine pH 6 (5-7) 12/10/22 17:49 Ur Specific [place] 1.020 (1.005-1.030) 12/10/22 17:49 Urine Protein Neg (Negative) 12/10/22 17:49 Urine Glucose (UA) Norm (Normal) 12/10/22 17:49 Urine Ketones Negative (Negative) 12/10/22 17:49 Urine Blood 2+ (Negative) H 12/10/22 17:49 Urine Nitrate Negative (Negative) 12/10/22 17:49 Urine Bilirubin Neg (Negative) 12/10/22 17:49 Urine Urobilinogen Norm mg/dL (Negative) 12/10/22 17:49 Ur Leukocyte Esterase Negative (Negative) 12/10/22 17:49 Urine RBC 0-4 /hpf (0-2) H 12/10/22 17:49 Urine WBC 5-10 /hpf (0-5) H 12/10/22 17:49 Ur Squamous Epith Cells None /hpf (0-5) 12/10/22 17:49 Amorphous Sediment Not Reportable 12/10/22 17:49 Urine Bacteria Trace /hpf (NONE) 12/10/22 17:49 Urine Mucus Trace /hpf 12/10/22 17:49 Discharge Plan Discharge Patient Disposition: Home Clinical Impression: Dementia Condition: Stable Prescriptions: No Action aspirin 325 mg Tablet 325 mg PO DAILY levothyroxine 75 mcg tablet 75 mcg PO DAILY docusate sodium [Colace] 100 mg Capsule 200 mg PO DAILY multivitamin Tablet 1 tab PO DAILY atorvastatin 40 mg tablet 20 mg PO QPM acetaminophen 325 mg Tablet 650 mg PO DAILY hydrocodone-acetaminophen 5-325 mg Tablet 1 tab PO Q6H PRN (Reason: Pain) clonazepam 1 mg tablet 1 mg PO QPM magnesium hydroxide [Milk of Magnesia] 400 mg/5 mL Suspension 30 ml PO DAILY PRN (Reason: Constipation) pantoprazole 40 mg tablet,delayed release (DR/EC) 40 mg PO DAILY bisacodyl 5 mg Tablet,Delayed Release (Dr/Ec) 5 mg PO DAILY PRN (Reason: Constipation) mirtazapine [Remeron] 15 mg Tablet 30 mg PO BEDTIME polyethylene glycol 3350 [Miralax] 17 gram/dose Powder 4 g PO DAILY Acidophilus Capsule 100 mg PO QPM PRN (Reason: Constipation) melatonin 1 mg Tablet 1 mg PO QPM omega-3 fatty acids 500 mg Capsule 500 mg PO DAILY Discharge Orders: Discharge ED (Routine); Ordered 12/10/22 Ordered By: Adolph Moon Discharge Diet: Advance as tolerated Discharge Activity: Resume usual activity Patient Instructions: Dementia (ED) Coding Level of Care Code ED Organizational Development Manager for Miri Russell
[2022-12-10 18:17] LABS: Add Urine Microscopic? YES; Bilirubin Urine Neg (Negative); Blood Urine 2+ (Negative); Glucose Urine UA Norm (Normal); Ketones Urine Negative (Negative); Leukocyte Esterase Urine Negative (Negative); Nitrate Urine Negative (Negative); Protein Urine Neg (Negative); Urine Appearance Clear (CLEAR); Urine Color Yellow (Yellow); Urobilinogen Urine Norm (Negative); pH Urine 6 (5-7)
[2022-12-10 18:22] LABS: RBC Urine 0-4 /hpf (0-2)
[2022-12-10 18:23] LABS: Add Urine Culture? No; Bacteria Urine TRACE /hpf; Mucus Urine TRACE /hpf
[2022-12-10 18:24] VITALS: BP 117/82; PULSE 95; RESP 18; O2SAT 94
--- NOTE | 2022-12-10 19:32 | CTR_ITS ---
PROCEDURE INFORMATION: Exam: CT Head Without Contrast Exam date and time: 12/10/2022 8:08 PM Age: 87 years old Clinical indication: Injury or trauma; Fall; Blunt trauma (contusions or hematomas); Additional info: Falls TECHNIQUE: Imaging protocol: Computed tomography of the head without contrast. Radiation optimization: All CT scans at this facility use at least one of these dose optimization techniques: automated exposure control; mA and/or kV adjustment per patient size (includes targeted exams where dose is matched to clinical indication); or iterative reconstruction. REPORTING DATA: Count of CT and Cardiac NM exams in prior 12 months: This patient has received 7 known CTs and 0 known cardiac nuclear medicine studies in the 12 months prior to the current study. COMPARISON: CT head wo con* [id number] 11/27/2022 6:54 PM RADIATION DOSE METRICS: Total DLP (mGy-cm): 1128 FINDINGS: Brain: Large amount diffuse white matter disease likely reflecting chronic microvascular ischemic changes. Cerebral ventricles: No ventriculomegaly. Paranasal sinuses: Visualized sinuses are unremarkable. No fluid levels. Mastoid air cells: Visualized mastoid air cells are well aerated. Bones/joints: Unremarkable. No acute fracture. Soft tissues: Unremarkable. CT/CT head wo con* [id number] IMPRESSION: Negative for intracranial hemorrhage or mass effect
[2022-12-10 19:56] LABS: Basophils # 0.1 10^3/uL (0.0-0.1); Basophils % 0.8 %; Eosinophils # 0.4 10^3/uL (0.0-0.8); Eosinophils % 3.7 %; Hematocrit 40.6 % (37.0-47.0); Lymphocytes # 2.8 10^3/uL (0.8-4.8); Lymphocytes % 24.8 %; Mean Corpuscular Hemoglobin 29.6 pg (28.0-34.0); Mean Corpuscular Volume 92.5 fl (81-99); Mean Platelet Volume 10.7 fL (7.4-10.4); Monocytes # 0.7 10^3/uL (0.2-0.9); Monocytes % 6.2 %; Neutrophils # 7.18 10^3/uL (1.8-7.7); Nucleated Red Blood Cells % 0 %; Platelet Count 306 10^3/cmm (130-400); Red Blood Count 4.39 10^6/uL (4.1-5.3); Red Cell Distribution Width 13.6 % (12.1-15.1); White Blood Count 11.2 10^3/uL (4.0-10.0)
[2022-12-10 20:19] LABS: Alanine Aminotransferase 15 U/L (0-33); Albumin Level 3.5 g/dL (3.5-5.2); Alkaline Phosphatase 143 U/L (35-105); Anion Gap 14.1 (5-19); Aspartate Amino Transferase 19 U/L (0-32); Blood Urea Nitrogen 38 mg/dL (8-23); Calcium 9.6 mg/dL (8.5-10.5); Carbon Dioxide 26 mmol/L (22-29); Chloride 108 mmol/L (98-107); Globulin 3.9 g/dL (1.3-4.6); Glucose 113 mg/dL (65-115); Osmolality Calculated 308 mOsm/kg (285-295); Potassium 4.1 mmol/L (3.5-5.1); Sodium 144 mmol/L (136-145); Total Bilirubin 0.2 mg/dL (0.15-1.2); Total Protein 7.4 g/dL (6.6-8.7)
--- NOTE | 2022-12-10 20:47 | XRR_ITS ---
PROCEDURE INFORMATION: Exam: XR Chest Exam date and time: 12/10/2022 8:57 PM Age: 87 years old Clinical indication: Other: AMS TECHNIQUE: Imaging protocol: Radiologic exam of the chest. Views: 1 view. COMPARISON: CT chest abdpel [id number] 11/28/2022 12:48 AM FINDINGS: Lungs: Emphysematous changes. Left lower lobe atelectasis versus infiltrate. Pleural spaces: Unremarkable. No pleural effusion. No pneumothorax. Heart/Mediastinum: Cardiomegaly. Bones/joints: Unremarkable. XR/XR chest 1V portable [id number] IMPRESSION: 1. Cardiomegaly. 2. Emphysematous changes. 3. Left lower lobe atelectasis versus infiltrate.
--- NOTE | 2022-12-10 20:52 | ECG_ITS ---
[facility] Test Date: 2022-12-10 Pat Name: Esperanza Duran Department: Room: 278 Gender: Female Reactor Operator: : [id number] Requested By: Adolph Moon Order Number: [id number] David MD: Papi Arevalo M.D. Measurements Intervals [place] Rate: 95 P: 53 MO: 155 QRS: -61 QRSD: 82 T: 38 QT: 335 QTc: 422 Interpretive Statements SINUS RHYTHM LEFT ANTERIOR FASCICULAR BLOCK [QRS AXIS <= -45, QR IN I, RS IN II] POSSIBLE ANTERIOR MYOCARDIAL INFARCTION , PROBABLY OLD [30 ms Q WAVE IN V3/V4, OR R < 0.2 mV IN V4] Compared to ECG 04/12/2022 21:47:52 Myocardial infarct finding now present Electronically Signed On 12-10-2022 23:18:04 CDT by Papi Arevalo M.D. [id number]
[2022-12-10 21:02] VITALS: BP 118/78; PULSE 93; RESP 14; O2SAT 93
--- NOTE | 2022-12-10 21:05 | PM.HP ---
Providers/Chief Complaint Admitting Physician: Link Penny MD Chief Complaint: UTI History of Present Illness Esperanza Duran is a 87 year old female with urinary diversion with urostomy bag, and white matter disease evident on CT head, does not have official diagnosis of dementia, [facility] with 14-day course of ESBL UTI, bacteremia was cleared, tomorrow is her last day for antibiotics, presented to the hospital for worsening of her confusion. No fever, nausea, vomiting or diarrhea endorsed by the patient, she is able to tell me her name, date of , name of the president she is not sure about the year but denying any chest pain, shortness of breath abdominal pain, she was able to interact and reciprocate appropriately. Short attention span. Family is concerned for untreated infection however urine looks normal no significant leukocytosis, she is afebrile, CT head unremarkable, chronic kidney disease at baseline, Review of Systems Const: Denies: fever(s) Eyes: Denies: change in vision ENMT: Denies: throat pain Card: Denies: chest pain Resp: Denies: dyspnea GI: Denies: abdominal pain : Denies: flank pain Musc: Reports: extremity pain Medications/Allergies Home Medications Medication Instructions Recorded Confirmed Last Taken Type Lactobacillus acidophilus 100 mg PO QPM PRN Constipation 12/26/21 11/28/22 11/26/22 20:00 History (Acidophilus capsule) acetaminophen 325 mg tablet 650 mg PO DAILY 12/26/21 11/28/22 11/27/22 09:00 History atorvastatin 40 mg tablet 20 mg PO QPM 12/26/21 11/28/22 11/26/22 18:00 History bisacodyl 5 mg tablet,delayed 5 mg PO DAILY PRN Constipation 12/26/21 11/28/22 Unknown History release clonazepam 1 mg tablet 1 mg PO QPM 12/26/21 11/28/22 11/26/22 20:00 History hydrocodone 5 mg-acetaminophen 325 1 tab PO Q6H PRN Pain 12/26/21 11/28/22 Unknown History mg tablet magnesium hydroxide 400 mg/5 mL 30 ml PO DAILY PRN Constipation 12/26/21 11/28/22 Unknown History oral suspension (Milk of Magnesia) melatonin 1 mg tablet 1 mg PO QPM 12/26/21 11/28/22 11/26/22 20:00 History mirtazapine 15 mg tablet (Remeron) 30 mg PO BEDTIME 12/26/21 11/28/22 11/26/22 20:00 History omega-3 fatty acids 500 mg capsule 500 mg PO DAILY 12/26/21 11/28/22 11/27/22 09:00 History pantoprazole 40 mg tablet,delayed 40 mg PO DAILY 12/26/21 11/28/22 11/27/22 09:00 History release polyethylene glycol 3350 17 4 g PO DAILY 12/26/21 11/28/22 11/27/22 09:00 History gram/dose oral powder (Miralax) aspirin 325 mg tablet 325 mg PO DAILY 11/28/22 11/28/22 11/27/22 09:00 History docusate sodium 100 mg capsule 200 mg PO DAILY 11/28/22 11/28/22 11/27/22 09:00 History (Colace) levothyroxine 75 mcg tablet 75 mcg PO DAILY 11/28/22 11/28/22 11/27/22 09:00 History multivitamin 1 tab PO DAILY 11/28/22 11/28/22 11/27/22 09:00 History Allergies Allergy/AdvReac Type Severity Reaction Status Date / Time cephalexin [From Keflex] Allergy Unknown Verified 12/10/22 17:24 codeine Allergy Unknown Verified 12/10/22 17:24 PFSH Acute PFSH: Medical History Bladder cancer Breast cancer Essential hypertension GERD (gastroesophageal reflux disease) Hyperlipidemia Hypothyroidism Insomnia Medical history unknown TIA (transient ischemic attack) Vitamin D deficiency Surgical History Surgical history unknown Social History Lives independently: No Housing: Residential Vitals/I&O/Wt Last Vital Signs Temp 98.7 F 12/10/22 17:17 Pulse 93 12/10/22 21:02 Resp 14 12/10/22 21:02 BP 118/78 12/10/22 21:02 Pulse Ox 93 12/10/22 21:02 O2 Del Method Room Air 12/10/22 21:02 Weight last 48 hrs Weight 56.699 kg Physical Exam Narrative: Patient looks dehydrated Awake and alert Able to answer my questions appropriately Short attention span GCS 15 Nonfocal neuro exam Urostomy bag with clear yellow urine Abdominal soft without any tenderness Nonfocal neuro exam S1, S2 Currently on room air Pleasant and cooperative Appears stated age Data 12/10/22 17:51 12/10/22 17:51 A&P Assessment and plan (1) Altered mental status: (2) Dementia: (3) Bladder cancer: Plan Metabolic encephalopathy most likely related to underlying UTI with dementia CT scan is clearly showing significant white matter disease Patient is forgetful Short attention span Does not show any signs of meningitis or encephalitis Afebrile I would repeat urine and blood cultures Tomorrow is her last dose of antibiotics for ESBL UTI, bacteremia was cleared I will check her TSH and B12 I do believe her symptoms are related to underlying dementia DNR/DNI Cardiac diet Attestations Medical Necessity Statement*: And is needing work-up for metabolic encephalopathy anticipating discharge within 48 hrs Diagnoses Altered mental status R41.82 Dementia F03.90 Bladder cancer C67.9
[2022-12-10 22:00] VITALS: BP 160/108; PULSE 91; RESP 16; TEMP 36.7; O2SAT 95
[2022-12-10] MEDS: heparin 5,000 unit/mL INJ 1 mL 5000 UNIT SUBCUT (22:11)
[2022-12-10] MEDS: sodium chloride 0.9% 1,000 ML 75 ML IV (22:11)
[2022-12-10] MEDS: meropenem 500 MG in sodium chloride 0.9% (plus) 50 ML 100 MG IV (22:11)
[2022-12-10 22:21] LABS: D Dimer 3.71 ug/mIFEU (0-0.59)
[2022-12-10 22:35] LABS: Procalcitonin 0.05 ng/mL (0-0.5); Thyroid Stimulating Hormone 2.24 uIU/mL (0.27-4.20); Vitamin B12 573 pg/mL (232-1245)
[2022-12-10 23:50] VITALS: PULSE 89; RESP 18; O2SAT 92
[2022-12-11] VITALS (8 sets, daily range): BP systolic 132–153; BP diastolic 87–98; PULSE 80–94; RESP 15–19; TEMP 36.1–36.8; O2SAT 94–96
[2022-12-11 04:24] LABS: Basophils # 0.1 10^3/uL (0.0-0.1); Basophils % 0.9 %; Eosinophils # 0.4 10^3/uL (0.0-0.8); Eosinophils % 3.9 %; Hematocrit 38.9 % (37.0-47.0); Hemoglobin 12.2 g/dL (11.5-15.3); Lymphocytes % 26.5 %; Mean Corpuscular HGB Conc 31.4 g/dL (30.0-36.0); Mean Corpuscular Hemoglobin 29.2 pg (28.0-34.0); Mean Corpuscular Volume 93.1 fl (81-99); Mean Platelet Volume 11.2 fL (7.4-10.4); Monocytes # 0.9 10^3/uL (0.2-0.9); Monocytes % 7.7 %; Neutrophils # 6.86 10^3/uL (1.8-7.7); Neutrophils % 60.6 %; Nucleated Red Blood Cells % 0 %; Platelet Count 284 10^3/cmm (130-400); Red Blood Count 4.18 10^6/uL (4.1-5.3); Red Cell Distribution Width 13.4 % (12.1-15.1); White Blood Count 11.3 10^3/uL (4.0-10.0)
[2022-12-11 04:48] LABS: Anion Gap 13.7 (5-19); Blood Urea Nitrogen 33 mg/dL (8-23); C Reactive Protein 12.5 mg/L (0.0-4.9); Calcium 9.3 mg/dL (8.5-10.5); Carbon Dioxide 25 mmol/L (22-29); Chloride 109 mmol/L (98-107); Glucose 102 mg/dL (65-115); Magnesium 1.7 mg/dL (1.7-2.3); Osmolality Calculated 303 mOsm/kg (285-295); Phosphorus 3.1 mg/dL (2.5-4.5); Potassium 4.7 mmol/L (3.5-5.1); Sodium 143 mmol/L (136-145)
[2022-12-11] MEDS: meropenem 500 MG in sodium chloride 0.9% (plus) 50 ML 100 MG IV ×2 (05:20→17:20)
--- NOTE | 2022-12-11 08:04 | CT_ITS ---
WS: [id number] CTA OF THE CHEST WITH PULMONARY EMBOLISM PROTOCOL TECHNIQUE: High-resolution contrast enhanced CTA of the chest with coronal and sagittal reformatted i mages with pulmonary embolism protocol. MIP images are also reviewed. CLINICAL INFORMATION: Mu, COMPARISON: CT November 28, 2022 DLP: 231.[address] scans at [facility] use at least one of these dose optimization techniques: automated e xposure control; mA and/or kV adjustment per patient size (includes targeted exams where dose is matc hed to clinical indication); or iterative reconstruction. FINDINGS: Proximal main pulmonary arteries are patent. Numerous filling defects in the RIGHT segmenta l and subsegmental pulmonary arteries throughout the RIGHT lung consistent with acute pulmonary embol us. Main pulmonary arteries are patent. No significant filling defects in the LEFT segmental and subs egmental pulmonary arteries. Suggestion of mild RIGHT heart strain with slight paradoxical bowing of the intraventricular septum Moderate chronic emphysematous changes. Interstitial thickening and subpleural fibrosis in the lung b ases. Prior cholecystectomy. Normal GE junction. Dense splenic artery calcification. Adrenal glands a re normal. Thoracic curve. Moderate thoracic kyphosis. 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 Aorta at the diaphragm measures approximately 4.5 x 5.2 cm AP by transvers e. Mild esophageal achalasia with food products in a slightly dilated thoracic esophagus. CT/CT angio chest PE protcl [id number] IMPRESSION: 1. Extensive segmental and subsegmental pulmonary embolus in the RIGHT lung. P roximal main pulmonary arteries are normal. 2. Suggestion of slight RIGHT heart strain with mild intraventricular paradoxi luz maria septal bowing. 3. Moderate chronic emphysematous changes. No acute pulmonary infiltrates. 4. 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 Tortuous an d aneurysmal descending thoracic aorta measuring 4.3 cm in maximum dimension. 5. Prior cholecystectomy. 6. Mild esophageal achalasia with food products in a slightly dilated thoracic esophagus. Patient risk for aspiration. Discussed with Link Penny MD at 12/11/2022 8:59 AM.
[2022-12-11] MEDS: iohexol 350 mg/mL 500 mL Btl (per mL) IV (08:37)
[2022-12-11] MEDS: heparin 5,000 unit/mL INJ 1 mL 5000 UNIT SUBCUT (09:00)
--- NOTE | 2022-12-11 09:55 | USCV_ITS ---
Esperanza Duran Age: 87 Gender: F : 1935 Exam Date: 12/11/2022 11:43 Ordering Phys: Link Penny MD Technologist: Ruperto Melo Exam Location: [facility] – [place] Indication: pe BP: 132 / 75 HR: 93 Rhythm: Sinus Technical Quality: Adequate MEASUREMENTS (Male / Female) Normal Values 2D ECHO LV Diastolic Diameter PLAX 3.1 cm 4.2 - 5.9 / 3.9 - 5.3 cm LV Systolic Diameter PLAX 2.3 cm IVS Diastolic Thickness 1.5 cm 0.6 - 1.0 / 0.6 - 0.9 cm IVS Systolic Thickness 2.0 cm LVPW Diastolic Thickness 1.2 cm 0.6 - 1.0 / 0.6 - 0.9 cm LVPW Systolic Thickness 1.7 cm LVOT Diameter 2.0 cm LV Ejection Fraction 2D Teich 54.5 % LV Ejection Fraction MOD 2C 65.6 % LV Ejection Fraction 2C AL 66.7 % LA Diameter 4.0 cm M-MODE Aortic Annulus Diameter 3.5 cm LA Ao Ratio MM 1.2 MV E Point Septal Separation 1.0 cm DOPPLER AV Peak Velocity 129.0 cm/s LVOT Peak Velocity 84.0 cm/s AV Area Cont Eq vti 2.2 cm squared AV Area Cont Eq pk 2.1 cm squared MV E' Velocity 7.0 cm/s TR Peak Velocity 237.3 cm/s TR Peak Gradient 22.5 mmHg TV Peak E Velocity 140.3 cm/s Right Atrial Pressure 3.0 mmHg Pulmonary Artery Systolic Pressu 25.5 mmHg RV Acceleration Time 0.1 s FINDINGS Left Ventricle Normal left ventricular size, systolic function and wall thickness with estimated ejection fraction about 60%, with no regional wall motion abnormalities. Normal left ventricular wall thickness. Abnormal grade 3 diastolic filling pattern. Right Ventricle The right ventricle is normal in size and function. Right Atrium The right atrium is normal in size. Left Atrium The left atrium is normal in size. Mitral Valve Structurally normal mitral valve without significant stenosis or prolapse. There is trivial mitral regurgitation. Aortic Valve Structurally normal aortic valve without significant sclerosis or stenosis. There is no aortic regurgitation. Tricuspid Valve Structurally normal tricuspid valve without significant stenosis trivial regurgitation. Pulmonary artery systolic pressure is normal. Pulmonic Valve Structurally normal pulmonic valve without significant stenosis. There is trivial pulmonic regurgitation. Pericardium Normal pericardium without effusion. Aorta Normal ascending aorta dimension. IVC The inferior vena cava appears normal. CONCLUSIONS Normal LV function with EF about 60%. Next Mild valvular disease. Lydia Ramires MD (Electronically Signed) Final Date: 11 December 2022 16:55 S
[2022-12-11] MEDS: enoxaparin 60 mg/0.6 mL Syringe SUBCUT ×2 (10:41→21:27)
[2022-12-11] MEDS: sodium chloride 0.9% 1,000 ML 75 ML IV (10:42)
--- NOTE | 2022-12-11 11:18 | PC.CHAP ---
Pastoral Care Encounter/Spiritual Assessment Type of Contact [] Declined order entry clerk visit [] Patient/Family/Request visit [] Outpatient visit [x] Follow-up visit [] Physician referral [] Code/Alert [] Routine visit [] Staff referral [] Actively dying [] Patient sleeping [] Family support [] [] Out of room [] Palliative care [] [] Receiving care in room [] Pre-surgical visit [] Trauma [] Long length of stay [] ICU visit [] Other: Relational/Emotional Strength [] Patient feels connected with others/family/visitors/staff [] Distress [] Loneliness/isolation [] Abandonment Spirituality of Patient [] Person of Mony [] Attends Sikhism of their Mony [] Believes in Prayer [] Reads Bible or Mosque materials [] There are Spiritual issues to be addressed Numerical Control Drill Press Operator Interventions [] Prayer [] Active listening [] Non-anxious presence [] Spiritual/emotional support [] Crisis/trauma care [] Spiritual counseling [] Bereavement support [] Provided bereavement packet [] Provided Bible/devotional materials [] Provided toy/stuffed animal, coloring book to patient or family member [] Provided Communion [] Anointing/[place] [] Salvation [] Completed spiritual assessment [] Other: Impact on Illness or Injury [] Angry [] Fearful [] Anxious [] Often cries [] Exhaustion [] Unable to work [] Unable to attend buddhism [] Unable to walk/stand [] Unable to read [] Unable to drive [] Unable to eat/drink [] Unable to sleep [] Unable to be with family [] Patient intubated [] Other: Summary Follow-up visit Time spent with patient 5 mins
--- NOTE | 2022-12-11 11:39 | PM.PN ---
Subjective Subjective: Bilateral PE, extensive clot burden Patient is not requiring oxygen, she is not tachycardic She notes shortness of breath with exertion Daughter notified We will start on therapeutic Lovenox AAA 4.5 x 5.2 cm No active complaints Mild esophageal achalasia dilated thoracic esophagus at risk of aspiration Vitals/I&O/Wt Last Vital Signs Temp 97.3 F L 12/11/22 11:22 Pulse 94 12/11/22 11:22 Resp 19 H 12/11/22 11:22 BP 140/95 12/11/22 11:22 Pulse Ox 95 12/11/22 11:22 O2 Del Method Room Air 12/11/22 11:22 12/10/22 12/11/22 12/11/22 22:59 06:59 14:59 Intake Total 100 / 100 1058.75 / 1058.75 Output Total 1200 / 1200 925 / 925 Balance -1100 / -1100 133.75 / 133.75 Weight last 48 hrs Weight 56.699 kg Physical Exam Narrative: Awake and alert Oriented to herself Pleasant and cooperative GCS 15 Urine in the bag Looks euvolemic Awake and alert Nonfocal neuro exam S1, S2 Data 12/11/22 04:08 12/11/22 04:08 Micro: Microbiology 12/10/22 21:49 Blood Culture - Preliminary Blood SPECIMEN COLLECTED 12/10/22 21:38 Blood Culture - Preliminary Blood SPECIMEN COLLECTED A&P Assessment and plan (1) Altered mental status: (2) Dementia: (3) Pulmonary embolism: (4) Bladder cancer: (5) Metabolic encephalopathy: Plan Acute pulm embolism Start therapeutic Lovenox Right heart strain evident Requested echo Patient feels venous Doppler No hemodynamic instability Patient on chronic oxygen she is not tachycardic Metabolic encephalopathy: Resolved Underlying dementia and UTI Continue antibiotics Repeat cultures negative Plan to discharge her tomorrow on Eliquis DNI/DNI PE seems to be related to underlying bladder cancer and sedentary lifestyle Daughter notified Attestations Medical Necessity Statement*: Possible discharge tomorrow Diagnoses Altered mental status R41.82 Dementia F03.90 Pulmonary embolism I26.99 Bladder cancer C67.9 Metabolic encephalopathy G93.41
[2022-12-11] MEDS: atorvastatin 40 mg Tablet 20 MG PO (17:20)
[2022-12-11] MEDS: nicotine 7 mg Patch 1 PATCH TRANSDERMA (18:05)
[2022-12-11] MEDS: mirtazapine 15 mg Tablet 30 MG PO (21:27)
[2022-12-12] VITALS: BP 124/87; PULSE 92; RESP 15; TEMP 36.3; O2SAT 94
[2022-12-12] MEDS: sodium chloride 0.9% 1,000 ML 75 ML IV (01:36)
[2022-12-12 04:00] VITALS: BP 137/93; PULSE 87; RESP 14; TEMP 36.6; O2SAT 96
[2022-12-12 04:18] LABS: Basophils # 0.1 10^3/uL (0.0-0.1); Eosinophils # 0.4 10^3/uL (0.0-0.8); Eosinophils % 4.3 %; Hematocrit 38.2 % (37.0-47.0); Lymphocytes # 2.5 10^3/uL (0.8-4.8); Lymphocytes % 26.9 %; Mean Corpuscular HGB Conc 31.4 g/dL (30.0-36.0); Mean Corpuscular Hemoglobin 28.6 pg (28.0-34.0); Mean Corpuscular Volume 91.2 fl (81-99); Mean Platelet Volume 11.6 fL (7.4-10.4); Monocytes # 0.6 10^3/uL (0.2-0.9); Monocytes % 6.5 %; Neutrophils # 5.66 10^3/uL (1.8-7.7); Nucleated Red Blood Cells % 0 %; Platelet Count 273 10^3/cmm (130-400); Red Blood Count 4.19 10^6/uL (4.1-5.3); Red Cell Distribution Width 13.3 % (12.1-15.1); White Blood Count 9.3 10^3/uL (4.0-10.0)
[2022-12-12 04:40] LABS: Anion Gap 14.7 (5-19); Blood Urea Nitrogen 22 mg/dL (8-23); Calcium 9.2 mg/dL (8.5-10.5); Carbon Dioxide 23 mmol/L (22-29); Chloride 109 mmol/L (98-107); Glucose 98 mg/dL (65-115); Osmolality Calculated 299 mOsm/kg (285-295); Potassium 3.7 mmol/L (3.5-5.1); Sodium 143 mmol/L (136-145)
[2022-12-12] MEDS: meropenem 500 MG in sodium chloride 0.9% (plus) 50 ML 100 MG IV (05:42)
[2022-12-12 07:19] VITALS: PULSE 78; RESP 15; O2SAT 94
[2022-12-12 07:45] VITALS: BP 129/85; PULSE 81; RESP 18; TEMP 36.7; O2SAT 96
[2022-12-12] MEDS: levothyroxine 75 mcg Tablet PO (08:44)
[2022-12-12] MEDS: pantoprazole DR 40 mg Tablet PO (08:44)
--- NOTE | 2022-12-12 10:19 | PM.DCS ---
Discharge Providers Date of Admission: 12/10/22 20:44 Date of Discharge: December 12, 2022 Attending Provider at Admission: Link Penny MD Attending Provider at Discharge: Link Penny MD Diagnoses at Discharge Discharge Diagnosis (1) Altered mental status: Status: Acute (2) Dementia: Status: Acute (3) Pulmonary embolism: Status: Acute (4) Bladder cancer: Status: Acute (5) Metabolic encephalopathy: Status: Acute Reason for Visit Reason for Visit: UTI Hospital Course Hospital Course 87-year-old female who was admitted to the hospital recently for management of ESBL UTI bacteremia, this time she was admitted for worsening of confusion, CBC BMP unremarkable patient complained of some shortness of breath, requested D-dimer which came back high, CTA ruled in bilateral PE with right heart strain however she did not show any signs of wall motion abnormality on echo, remained afebrile, hemodynamically stable, doing well on room air, patient has severe dementia which is evident on her CT head with severe white matter disease, she is pleasant and cooperative, she required therapeutic Lovenox during hospitalization, she was discharged on Eliquis 10 mg twice daily for 7 days then 5 mg twice daily. Physical Exam Narrative: Awake and alert GCS 15 Nonfocal neuro exam Currently on room air Abdomen soft S1, S2 Discharge Data Studies Completed and Pending Completed Studies During Hospitalization Category Date Time Status CT head wo con* [id number] Stat Cat Scan 12/10/22 19:32 Completed CTA PE [CT angio chest PE protcl [id number]] Routine Cat Scan 12/11/22 08:04 Completed CXRP [XR chest 1V portable [id number]] Stat Exams 12/10/22 20:47 Completed XR lumbar spine 2-3V* [id number] Stat Exams 12/10/22 17:48 Completed CV. echo complete* [id number] Routine Ultrasound 12/11/22 09:55 Completed Pending at discharge Category Date Time Status Blood Culture Stat Lab 12/10/22 21:49 Results Urine Culture Routine Lab 12/11/22 02:30 Received Radiology Impressions Lumbar Spine X-Ray 12/10/22 17:48 IMPRESSION: 1. Multilevel moderate to severe disc space narrowing throughout the spine most significant at L4-L5 with multilevel productive degenerative endplate changes. 2. Scattered vascular calcifications. Head CT 12/10/22 19:32 IMPRESSION: Negative for intracranial hemorrhage or mass effect Chest X-Ray 12/10/22 20:47 IMPRESSION: 1. Cardiomegaly. 2. Emphysematous changes. 3. Left lower lobe atelectasis versus infiltrate. Chest CTA 12/11/22 08:04 IMPRESSION: 1. Extensive segmental and subsegmental pulmonary embolus in the RIGHT lung. Proximal main pulmonary arteries are normal. 2. Suggestion of slight RIGHT heart strain with mild intraventricular paradoxical septal bowing. 3. Moderate chronic emphysematous changes. No acute pulmonary infiltrates. 4. 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 Tortuous and aneurysmal descending thoracic aorta measuring 4.3 cm in maximum dimension. 5. Prior cholecystectomy. 6. Mild esophageal achalasia with food products in a slightly dilated thoracic esophagus. Patient risk for aspiration. Discussed with Link Penny MD at 12/11/2022 8:59 AM. Laboratory Results WBC 9.3 10^3/uL (4.0-10.0) 12/12/22 03:57 RBC 4.19 10^6/uL (4.1-5.3) 12/12/22 03:57 Hgb 12.0 g/dL (11.5-15.3) 12/12/22 03:57 Hct 38.2 % (37.0-47.0) 12/12/22 03:57 MCV 91.2 fl (81-99) 12/12/22 03:57 MCH 28.6 pg (28.0-34.0) 12/12/22 03:57 MCHC 31.4 g/dL (30.0-36.0) 12/12/22 03:57 RDW 13.3 % (12.1-15.1) 12/12/22 03:57 Plt Count 273 10^3/cmm (130-400) 12/12/22 03:57 MPV 11.6 fL (7.4-10.4) H 12/12/22 03:57 Neut % (Auto) 61.0 % 12/12/22 03:57 Lymph % (Auto) 26.9 % 12/12/22 03:57 [place] % (Auto) 6.5 % 12/12/22 03:57 Eos % (Auto) 4.3 % 12/12/22 03:57 Baso % (Auto) 1.0 % 12/12/22 03:57 Neut # (Auto) 5.66 10^3/uL (1.8-7.7) 12/12/22 03:57 Lymph # (Auto) 2.5 10^3/uL (0.8-4.8) 12/12/22 03:57 [place] # (Auto) 0.6 10^3/uL (0.2-0.9) 12/12/22 03:57 Eos # (Auto) 0.4 10^3/uL (0.0-0.8) 12/12/22 03:57 Baso # (Auto) 0.1 10^3/uL (0.0-0.1) 12/12/22 03:57 Nucleated RBC % (auto) 0 % 12/12/22 03:57 Nucleated RBCs # 0.0 /100WBC 12/12/22 03:57 D-Dimer 3.71 ug/mIFEU (0-0.59) H 12/10/22 21:38 Sodium 143 mmol/L (136-145) 12/12/22 03:57 Potassium 3.7 mmol/L (3.5-5.1) 12/12/22 03:57 Chloride 109 mmol/L (98-107) H 12/12/22 03:57 Carbon Dioxide 23 mmol/L (22-29) 12/12/22 03:57 Anion Gap 14.7 (5-19) 12/12/22 03:57 BUN 22 mg/dL (8-23) 12/12/22 03:57 Creatinine 0.9 mg/dL (0.5-0.9) 12/12/22 03:57 GFR Calculation Not Reportable 12/12/22 03:57 Glucose 98 mg/dL (65-115) 12/12/22 03:57 Calculated Osmolality 299 mOsm/kg (285-295) H 12/12/22 03:57 Calcium 9.2 mg/dL (8.5-10.5) 12/12/22 03:57 Phosphorus 3.1 mg/dL (2.5-4.5) 12/11/22 04:08 Magnesium 1.7 mg/dL (1.7-2.3) 12/11/22 04:08 Total Bilirubin 0.2 mg/dL (0.15-1.2) 12/10/22 17:51 AST 19 U/L (0-32) 12/10/22 17:51 ALT 15 U/L (0-33) 12/10/22 17:51 Alkaline Phosphatase 143 U/L (35-105) H 12/10/22 17:51 C-Reactive Protein 12.5 mg/L (0.0-4.9) H 12/11/22 04:08 Total Protein 7.4 g/dL (6.6-8.7) 12/10/22 17:51 Albumin 3.5 g/dL (3.5-5.2) 12/10/22 17:51 Globulin 3.9 g/dL (1.3-4.6) 12/10/22 17:51 Vitamin B12 573 pg/mL (232-1245) 12/10/22 21:38 Procalcitonin 0.05 ng/mL (0-0.5) 12/10/22 21:38 TSH 2.24 uIU/mL (0.27-4.20) 12/10/22 21:38 Urine Color Yellow (Yellow) 12/10/22 17:49 Urine Appearance Clear (CLEAR) 12/10/22 17:49 Urine pH 6 (5-7) 12/10/22 17:49 Ur Specific [place] 1.020 (1.005-1.030) 12/10/22 17:49 Urine Protein Neg (Negative) 12/10/22 17:49 Urine Glucose (UA) Norm (Normal) 12/10/22 17:49 Urine Ketones Negative (Negative) 12/10/22 17:49 Urine Blood 2+ (Negative) H 12/10/22 17:49 Urine Nitrate Negative (Negative) 12/10/22 17:49 Urine Bilirubin Neg (Negative) 12/10/22 17:49 Urine Urobilinogen Norm mg/dL (Negative) 12/10/22 17:49 Ur Leukocyte Esterase Negative (Negative) 12/10/22 17:49 Urine RBC 0-4 /hpf (0-2) H 12/10/22 17:49 Urine WBC 5-10 /hpf (0-5) H 12/10/22 17:49 Ur Squamous Epith Cells None /hpf (0-5) 12/10/22 17:49 Amorphous Sediment Not Reportable 12/10/22 17:49 Urine Bacteria Trace /hpf (NONE) 12/10/22 17:49 Urine Mucus Trace /hpf 12/10/22 17:49 Vitals Last Vital Signs Temp 98.1 F 12/12/22 07:45 Pulse 81 12/12/22 07:45 Resp 18 12/12/22 07:45 BP 129/85 12/12/22 07:45 Pulse Ox 96 12/12/22 07:45 O2 Del Method Room Air 12/12/22 07:45 Discharge Plan Discharge Patient Disposition: Xfer SNF Condition: Stable Prescriptions: New aspirin 81 mg tablet,delayed release (DR/EC) 81 mg PO DAILY Qty: 30 0RF Eliquis 5 mg tablet 5 mg PO BID Qty: 120 5RF Rx Instructions: 10 mg twice daily for 7 days then 5 mg twice daily albuterol sulfate 90 mcg/actuation HFA aerosol inhaler 2 inh inhalation Q8H PRN (Reason: shortness of breath or wheezing) Qty: 6.7 4RF Continued levothyroxine 75 mcg tablet 75 mcg PO DAILY docusate sodium [Colace] 100 mg Capsule 200 mg PO DAILY multivitamin Tablet 1 tab PO DAILY atorvastatin 40 mg tablet 20 mg PO QPM acetaminophen 325 mg Tablet 650 mg PO DAILY hydrocodone-acetaminophen 5-325 mg Tablet 1 tab PO Q6H PRN (Reason: Pain) clonazepam 1 mg tablet 1 mg PO QPM magnesium hydroxide [Milk of Magnesia] 400 mg/5 mL Suspension 30 ml PO DAILY PRN (Reason: Constipation) pantoprazole 40 mg tablet,delayed release (DR/EC) 40 mg PO DAILY bisacodyl 5 mg Tablet,Delayed Release (Dr/Ec) 10 mg PO DAILY PRN (Reason: Constipation) mirtazapine [Remeron] 15 mg Tablet 30 mg PO BEDTIME polyethylene glycol 3350 [Miralax] 17 gram/dose Powder 4 g PO DAILY Acidophilus Capsule 100 mg PO QPM PRN (Reason: Constipation) melatonin 1 mg Tablet 1 mg PO QPM omega-3 fatty acids 500 mg Capsule 500 mg PO DAILY Discontinued aspirin 325 mg Tablet 325 mg PO DAILY Discharge Orders: Discharge Order (Routine); Ordered 12/12/22 Ordered By: Link Penny Discharge Diet: Advance as tolerated Discharge Activity: Resume usual activity Patient Instructions: Dementia (ED) Discharge Attestations Time Spent in Discharge Care*: greater than 30 min Quality Metrics Clinical Quality Measures [ No reported AMI, CVA or VTE this stay] Coding Level of Care Code Acute Code for Chg Fwd Diagnoses Altered mental status R41.82 Dementia F03.90 Pulmonary embolism I26.99 Bladder cancer C67.9 Metabolic encephalopathy G93.41
[2022-12-12] MEDS: enoxaparin 60 mg/0.6 mL Syringe SUBCUT (10:54)
[2022-12-12 11:33] LABS: SARS Covid-2 Antigen negative (Negative)
[2022-12-12 11:51] VITALS: BP 113/76; PULSE 87; RESP 18; TEMP 36.4; O2SAT 97
[2022-12-12 15:56] VITALS: BP 113/76; PULSE 87; RESP 18; TEMP 36.4; O2SAT 97
== END 2022-12-12 14:50 | disposition skilled nursing facility (03) ==
LOC: ER 18:42 → MEDSURG 20:53
PROVIDERS: Emergency Medicine; Admitting Provider Internal Medicine; Emergency Provider Emergency Medicine; Visit Provider Internal Medicine
DX: R41.82 Altered mental status, unspecified (principal); I26.99 Other pulmonary embolism without acute cor pulmonale; I51.89 Other ill-defined heart diseases; I44.4 Left anterior fascicular block; Z93.6 Other artificial openings of urinary tract status; N39.0 Urinary tract infection, site not specified; Z85.51 Personal history of malignant neoplasm of bladder; E03.9 Hypothyroidism, unspecified; E78.5 Hyperlipidemia, unspecified; E55.9 Vitamin D deficiency, unspecified; F03.C0 Unspecified dementia, severe, without behavioral disturbance, psychotic disturbance, mood disturbance, and anxiety; I26.94 Multiple subsegmental thrombotic pulmonary emboli without acute cor pulmonale; Z99.81 Dependence on supplemental oxygen
CPT/HCPCS: 36415; 70450; 71045; 71275; 72100; 80048; 80053; 81001; 82607; 83735; 84100; 84145; 84443; 85025; 85378; 86140; 87040; 87086; 87426; 93005; 93306; 96361; 96365; 96372; 99285; G0378; J1644; J1650; J2185; J7030; Q9967

== ENCOUNTER 2023-02-04 11:07 | Emergency (ER) | payer MEDICARE, OTHER, MEDICAID, SELFPAY ==
[2023-02-04 11:09] VITALS: BMI 22.1
[2023-02-04 11:11] VITALS: BP 159/102; PULSE 112; RESP 17; TEMP 39.8; O2SAT 95
--- NOTE | 2023-02-04 11:22 | XRR_ITS ---
PROCEDURE INFORMATION: Exam: XR Abdomen Exam date and time: 02/04/2023 11:48 AM Age: 87 years old Clinical indication: Fever; Prior surgery; Surgery date: 6+ months; Surgery type: Bladder, RT mastectomy; Patient HX: HX of bladder and breast cancer; Additional info: Fever urostomy TECHNIQUE: Imaging protocol: Radiologic exam of the abdomen. Views: Frontal supine view of the abdomen. 1 View. COMPARISON: [place] [id number] 11/28/2022 12:48 AM FINDINGS: Gastrointestinal tract: Gassy colon. No bowel dilation. Intraperitoneal space: There are right upper quadrant clips. Vasculature: There are vascular calcifications. Bones/joints: There is partially visualized left hip internal fixation hardware. No acute findings. XR/XR KUB [id number] IMPRESSION: Nonacute findings.
--- NOTE | 2023-02-04 11:22 | XRR_ITS ---
PROCEDURE INFORMATION: Exam: XR Chest Exam date and time: 02/04/2023 11:46 AM Age: 87 years old Clinical indication: Fever; Prior surgery; Surgery date: 6+ months; Surgery type: Bladder, RT mastectomy; Patient HX: HX of bladder and breast cancer TECHNIQUE: Imaging protocol: Radiologic exam of the chest. Views: 1 view. COMPARISON: CR (CHEST, ) 12/10/2022 8:57 PM FINDINGS: Lungs: Lungs appear free of acute disease. Pleural spaces: Unremarkable. No pleural effusion. No pneumothorax. Heart/Mediastinum: Unremarkable. No cardiomegaly. Vasculature: Prominent thoracic aorta particularly the aortic arch. Bones/joints: Unremarkable. XR/XR chest 1V portable [id number] IMPRESSION: Nonacute findings.
[2023-02-04 12:07] LABS: INR 1.45 (0.8-1.2)
[2023-02-04 12:09] LABS: Basophils # 0.1 10^3/uL (0.0-0.1); Basophils % 0.4 %; Eosinophils % 0.1 %; Hematocrit 40.7 % (37.0-47.0); Hemoglobin 13.1 g/dL (11.5-15.3); Lymphocytes # 0.8 10^3/uL (0.8-4.8); Lymphocytes % 5.7 %; Mean Corpuscular HGB Conc 32.2 g/dL (30.0-36.0); Mean Corpuscular Hemoglobin 29.9 pg (28.0-34.0); Mean Corpuscular Volume 92.9 fl (81-99); Monocytes # 0.8 10^3/uL (0.2-0.9); Monocytes % 5.8 %; Neutrophils # 12.32 10^3/uL (1.8-7.7); Neutrophils % 87.6 %; Nucleated Red Blood Cells % 0 %; Platelet Count 157 10^3/cmm (130-400); Red Blood Count 4.38 10^6/uL (4.1-5.3); Red Cell Distribution Width 14.4 % (12.1-15.1); White Blood Count 14.1 10^3/uL (4.0-10.0)
[2023-02-04 12:13] LABS: Lactic Sepsis W/Reflex 1.3 mmol/L (0.5-2.2)
--- NOTE | 2023-02-04 12:14 | W.ED.FEMALGU ---
HPI - Female Genitourinary General: Chief complaint: Urogenital-Female Stated complaint: UTI Time Seen by Provider: 02/04/23 11:25 History of Present Illness: Patient presents to the ER by EMS with reports of probable urosepsis per intermediate. Facility reports patient has a urostomy and is now more confused than normal for the last 2 days with dark urine output and a temperature of 103.7. Patient answers questions that sound appropriate however she thinks she arrived here by her when she arrived here by the ambulance. Otherwise she does not know why she is here and she voices no complaints at this time. Review of Systems General: Reports: 10 or more systems reviewed and unremarkable except in HPI and below and ROS unobtainable due to medical condition PFSH ED PFSH: Medical History Altered mental status Bladder cancer Breast cancer Dementia Essential hypertension GERD (gastroesophageal reflux disease) Hyperlipidemia Hypothyroidism Insomnia Medical history unknown Metabolic encephalopathy Pulmonary embolism TIA (transient ischemic attack) Vitamin D deficiency Surgical History Surgical history unknown Social History Lives independently: No Housing: [facility] Physical Exam Const: COMMON NORMALS: no acute distress, average body habitus, no limitations, healthy appearing, alert and well nourished HENMT: COMMON NORMALS: normocephalic, atraumatic, hearing grossly normal bilaterally, external ears normal, Normal external nose present and moist oral mucous membranes HEAD & SCALP: normocephalic and atraumatic NOSE: Normal external nose present EXTERNAL EAR: Yes external ears normal Eye: COMMON NORMALS: Equal, round and reactive pupils present, EOMs intact bilaterally, conjunctivae normal and no scleral icterus CONJUNCTIVA: Yes conjunctivae normal PUPIL: Yes Equal, round and reactive pupils present Neck/C-Spine: COMMON NORMALS: full ROM, no lymphadenopathy, supple, no meningeal signs, no JVD and Thyroid normal THYROID: Thyroid normal Lymph: LYMPHATIC: no lymphadenopathy noted Chest: COMMONS NORMALS: normal inspection of the chest and normal palpation of entire chest wall Resp: COMMON NORMALS: normal respiratory effort, No retractions, No use of accessory muscles and clear to auscultation bilaterally AUSCULTATION: clear to auscultation bilaterally Cardio: COMMON NORMALS: no JVD, regular rate, regular rhythm, S1 normal heart sound present, S2 normal heart sound present, No gallops present (Cardio), No clicks present (Cardio), No murmurs present (Cardio) and No rub (Cardio) RATE: regular rate RHYTHM: regular rhythm HEART SOUNDS: S1 normal heart sound present and S2 normal heart sound present GI: COMMON NORMALS: Normal to inspection, nondistended, normoactive bowel sounds present, Soft to palpation, non-tender, No hepatosplenomegaly present and no masses PALPATION: Yes Soft to palpation and Yes No hepatosplenomegaly present : COMMON NORMALS: Yes no CVA tenderness BLADDER/KIDNEY EXAM: Yes no CVA tenderness Back/Pelvis: COMMON NORMALS: no CVA tenderness Neuro: SENSORIUM/ORIENTATION: Yes alert MENINGEAL SIGNS: Yes no meningeal signs Course Vital Signs: Vital signs: Vital Signs Temperature 103.7 F H 02/04/23 11:11 Pulse Rate 107 H 02/04/23 12:32 Respiratory Rate 18 02/04/23 12:32 Blood Pressure 140/93 02/04/23 12:32 Pulse Oximetry 92 02/04/23 12:32 MDM - Female Medical Decision Making Presents to the ER with complaints of altered mental status and fever. Patient has a urostomy and thought was uroseptic. Lab work was obtained as well as imaging which eventually showed patient does have a urinary tract infection. Patient will be given 500 mg of IV Levaquin here in ER as her first dose and sent back to her intermediate to finish up on 10 more days of Levaquin p.o. Patient should follow-up with her PCP in approximately 7 to 10 days as needed. Differential Diagnosis Unlikely abdominal pain, acute appendicitis, calculus of kidney, constipation, diverticulitis, endometriosis, gastroenteritis, pancreatitis or small bowel obstruction Medical Records I reviewed the patient's medical records. Lab Data I reviewed the patient's lab results. 02/04/23 11:34 02/04/23 11:34 Radiology Impressions Chest X-Ray 02/04/23 11:22 IMPRESSION: Nonacute findings. KUB X-Ray 02/04/23 11:22 IMPRESSION: Nonacute findings. Laboratory Results WBC 14.1 10^3/uL (4.0-10.0) H 02/04/23 11:34 RBC 4.38 10^6/uL (4.1-5.3) 02/04/23 11:34 Hgb 13.1 g/dL (11.5-15.3) 02/04/23 11:34 Hct 40.7 % (37.0-47.0) 02/04/23 11:34 MCV 92.9 fl (81-99) 02/04/23 11:34 MCH 29.9 pg (28.0-34.0) 02/04/23 11:34 MCHC 32.2 g/dL (30.0-36.0) 02/04/23 11:34 RDW 14.4 % (12.1-15.1) 02/04/23 11:34 Plt Count 157 10^3/cmm (130-400) 02/04/23 11:34 MPV 12.0 fL (7.4-10.4) H 02/04/23 11:34 Neut % (Auto) 87.6 % 02/04/23 11:34 Lymph % (Auto) 5.7 % 02/04/23 11:34 Bradford % (Auto) 5.8 % 02/04/23 11:34 Eos % (Auto) 0.1 % 02/04/23 11:34 Baso % (Auto) 0.4 % 02/04/23 11:34 Neut # (Auto) 12.32 10^3/uL (1.8-7.7) H 02/04/23 11:34 Lymph # (Auto) 0.8 10^3/uL (0.8-4.8) 02/04/23 11:34 Bradford # (Auto) 0.8 10^3/uL (0.2-0.9) 02/04/23 11:34 Eos # (Auto) 0.0 10^3/uL (0.0-0.8) 02/04/23 11:34 Baso # (Auto) 0.1 10^3/uL (0.0-0.1) 02/04/23 11:34 Nucleated RBC % (auto) 0 % 02/04/23 11:34 Nucleated RBCs # 0.0 /100WBC 02/04/23 11:34 PT 18.10 SECONDS (12.1-14.9) H 02/04/23 11:34 INR 1.45 (0.8-1.2) H 02/04/23 11:34 Sodium 138 mmol/L (136-145) 02/04/23 11:34 Potassium 3.6 mmol/L (3.5-5.1) 02/04/23 11:34 Chloride 104 mmol/L (98-107) 02/04/23 11:34 Carbon Dioxide 21 mmol/L (22-29) L 02/04/23 11:34 Anion Gap 16.6 (5-19) 02/04/23 11:34 BUN 31 mg/dL (8-23) H 02/04/23 11:34 Creatinine 1.3 mg/dL (0.5-0.9) H 02/04/23 11:34 GFR Calculation Not Reportable 02/04/23 11:34 Glucose 135 mg/dL (65-115) H 02/04/23 11:34 Calculated Osmolality 295 mOsm/kg (285-295) 02/04/23 11:34 Lactic Acid 1.3 mmol/L (0.5-2.2) 02/04/23 11:40 Calcium 8.7 mg/dL (8.5-10.5) 02/04/23 11:34 Phosphorus 1.9 mg/dL (2.5-4.5) L 02/04/23 11:34 Magnesium 1.6 mg/dL (1.7-2.3) L 02/04/23 11:34 Total Bilirubin 0.6 mg/dL (0.15-1.2) 02/04/23 11:34 AST 15 U/L (0-32) 02/04/23 11:34 ALT 8 U/L (0-33) 02/04/23 11:34 Alkaline Phosphatase 94 U/L (35-105) 02/04/23 11:34 Total Protein 7.8 g/dL (6.6-8.7) 02/04/23 11:34 Albumin 3.6 g/dL (3.5-5.2) 02/04/23 11:34 Globulin 4.2 g/dL (1.3-4.6) 02/04/23 11:34 Procalcitonin 1.61 ng/mL (0-0.5) H 02/04/23 11:34 TSH 6.82 uIU/mL (0.27-4.20) H 02/04/23 11:34 Urine Color Yellow (Yellow) 02/04/23 17:46 Urine Appearance Cloudy (CLEAR) A 02/04/23 17:46 Urine pH 6.5 (5-7) 02/04/23 17:46 Ur Specific Correll 1.010 (1.005-1.030) 02/04/23 17:46 Urine Protein Trace (Negative) 02/04/23 17:46 Urine Glucose (UA) Norm (Normal) 02/04/23 17:46 Urine Ketones Negative (Negative) 02/04/23 17:46 Urine Blood 3+ (Negative) H 02/04/23 17:46 Urine Nitrate Negative (Negative) 02/04/23 17:46 Urine Bilirubin Neg (Negative) 02/04/23 17:46 Urine Urobilinogen Norm mg/dL (Negative) 02/04/23 17:46 Ur Leukocyte Esterase 2+ (Negative) H 02/04/23 17:46 Urine RBC 10-15 /hpf (0-2) H 02/04/23 17:46 Urine WBC 80-100 /hpf (0-5) H 02/04/23 17:46 Ur Squamous Epith Cells 0-4 /hpf (0-5) H 02/04/23 17:46 Amorphous Sediment Not Reportable 02/04/23 17:46 Urine Bacteria 3+ /hpf (NONE) H 02/04/23 17:46 Discharge Plan Discharge Patient Disposition: Home Clinical Impression: Urinary tract infection Qualifiers: Urinary tract infection type: acute cystitis Hematuria presence: with hematuria Qualified Code(s): N30.01 - Acute cystitis with hematuria Condition: Stable Prescriptions: New levofloxacin 500 mg tablet 500 mg PO Q24H Qty: 10 0RF No Action docusate sodium [Colace] 100 mg Capsule 200 mg PO DAILY acetaminophen 325 mg Tablet 650 mg PO DAILY hydrocodone-acetaminophen 5-325 mg Tablet 1 tab PO Q6H PRN (Reason: Pain) clonazepam 1 mg tablet 1 mg PO QPM magnesium hydroxide [Milk of Magnesia] 400 mg/5 mL Suspension 30 ml PO DAILY PRN (Reason: Constipation) pantoprazole 40 mg tablet,delayed release (DR/EC) 40 mg PO DAILY bisacodyl 5 mg Tablet,Delayed Release (Dr/Ec) 10 mg PO DAILY PRN (Reason: Constipation) mirtazapine [Remeron] 15 mg Tablet 30 mg PO BEDTIME polyethylene glycol 3350 [Miralax] 17 gram/dose Powder 4 g PO DAILY Acidophilus Capsule 100 mg PO QPM PRN (Reason: Constipation) melatonin 1 mg Tablet 1 mg PO QPM omega-3 fatty acids 500 mg Capsule 500 mg PO DAILY aspirin 81 mg tablet,delayed release (DR/EC) 81 mg PO DAILY Qty: 30 0RF Eliquis 5 mg tablet 5 mg PO BID Qty: 120 5RF albuterol sulfate 90 mcg/actuation HFA aerosol inhaler 2 inh inhalation Q8H PRN (Reason: shortness of breath or wheezing) Qty: 6.7 4RF atorvastatin 10 mg Tablet 10 mg PO .BEDTIME amlodipine 2.5 mg Tablet 2.5 mg PO DAILY acetaminophen 325 mg Capsule 325 mg PO Q4H PRN (Reason: Pain) levothyroxine 50 mcg Tablet 50 mcg PO DAILY Discharge Orders: Discharge ED (Routine); Ordered 02/04/23 Ordered By: Justen Almodovar Patient Instructions: Fever - Adult, Urinary Tract Infection in Women (ED) Activity Restrictions/Additional Instructions: Please push plenty of fluids. Please take [id number] Tylenol and/or Motrin as needed for fever. Finish all your antibiotics as directed. Please follow-up with your family practice physician in approximately 7 to 10 days or sooner as needed. Coding Level of Care Code ED Chief Of Planning for Miri Russell
[2023-02-04 12:21] LABS: Procalcitonin 1.61 ng/mL (0-0.5); Thyroid Stimulating Hormone 6.82 uIU/mL (0.27-4.20)
[2023-02-04] MEDS: acetaminophen 1,000 MG/100 ML PIGGYBACK 400 MG IV (12:24)
[2023-02-04] MEDS: sodium chloride 0.9% 1,000 ML 999 ML IV (12:26)
--- NOTE | 2023-02-04 12:29 | PC.PHAR ---
PHONED [facility] FOR MED LIST 3 TIMES 12 PM 02/04/23. NOTHING YET
[2023-02-04 12:32] VITALS: BP 140/93; PULSE 107; RESP 18; O2SAT 92
[2023-02-04 12:32] LABS: Alanine Aminotransferase 8 U/L (0-33); Albumin Level 3.6 g/dL (3.5-5.2); Alkaline Phosphatase 94 U/L (35-105); Anion Gap 16.6 (5-19); Aspartate Amino Transferase 15 U/L (0-32); Blood Urea Nitrogen 31 mg/dL (8-23); Calcium 8.7 mg/dL (8.5-10.5); Carbon Dioxide 21 mmol/L (22-29); Chloride 104 mmol/L (98-107); Globulin 4.2 g/dL (1.3-4.6); Glucose 135 mg/dL (65-115); Magnesium 1.6 mg/dL (1.7-2.3); Osmolality Calculated 295 mOsm/kg (285-295); Phosphorus 1.9 mg/dL (2.5-4.5); Potassium 3.6 mmol/L (3.5-5.1); Sodium 138 mmol/L (136-145); Total Bilirubin 0.6 mg/dL (0.15-1.2); Total Protein 7.8 g/dL (6.6-8.7)
[2023-02-04 18:25] LABS: Bilirubin Urine Neg (Negative); Blood Urine 3+ (Negative); Glucose Urine UA Norm (Normal); Ketones Urine Negative (Negative); Nitrate Urine Negative (Negative); Protein Urine Trace (Negative); Urine Appearance Cloudy (CLEAR); Urine Color Yellow (Yellow); pH Urine 6.5 (5-7)
[2023-02-04 18:26] LABS: Add Urine Microscopic? YES; Bacteria Urine 3+ /hpf; Leukocyte Esterase Urine 2+ (Negative); Squamous Epithelial Cell Urine 0-4 /hpf (0-5); Urobilinogen Urine Norm (Negative); WBC Urine 80-100 /hpf (0-5)
[2023-02-04 18:27] LABS: Add Urine Culture? Yes
[2023-02-04] MEDS: levoFLOXacin 500 mg Tablet PO (19:18)
[2023-02-04 19:22] VITALS: BP 165/117; PULSE 95; RESP 16; O2SAT 94
[2023-02-04 19:23] VITALS: BP 165/117; PULSE 95; RESP 16; TEMP 39.8; O2SAT 94
--- NOTE | 2023-02-05 04:00 | PC.NURSE ---
critical lab called 1 of 4 bottles positive for gram neg rods preliminary report. info given to ED physician
--- NOTE | 2023-02-05 04:49 | PC.NURSE ---
Pt discharged from ED at 1930 but stayed in room. Primary contact Matthew Duran called regarding discharge. Matthew Duran stated that he is currently in [place] and to call his brother Chaka Duran who is going to meet her at [facility] upon her return. Matthew Duran also stated he would try to call her as well. RN contacted Matthew Duran who did not answer the phone. Matthew Duran arrived to ED at 1999. RN gave discharge instructions to Chaka Duran at bedside who verbalized understanding. Chaka Duran stated, we figured it was a UTI. She usually gets pretty confused when she gets one and antiobiotics help her. Chaka Duran did not state any concerns to RN and stayed until [facility] arrived at 2100 to transport pt back to [place] due to Chaka Duran being unable to drive her back because his vehicle did not have room. No concerns brought to RN at departure. Matthew and Chaka Duran did not mention sister Valeria Belcher being contacted, nor was her name mentioned. Communication of this pt care to Valeria Belcher was not communicated by [employer] RN to this RN. Valeria Belcher called ED regarding update on pt which was given by this RN including discharge information.
--- NOTE | 2023-02-06 12:20 | DCPLANNER ---
store deli manager called patient due to no primary care physician - no answer at this time.
--- NOTE | 2023-02-25 13:03 | DCPLANNER ---
electrical tech/project manager called patient due to no primary care physician - patient resides at [facility], seen by Dr. Mai
== END 2023-02-04 20:35 | disposition home or self-care (01) ==
PROVIDERS: Emergency Provider Emergency Medicine; PCP Pathology Anatomic Pathology & Clinical Pathology
DX: N30.01 Acute cystitis with hematuria (principal); R50.9 Fever, unspecified
CPT/HCPCS: 36415; 71045; 74018; 80053; 81001; 83605; 83735; 84100; 84145; 84443; 85025; 85610; 87040; 87077; 87086; 87186; 87205; 99284; J0131; J7030

== ENCOUNTER 2024-02-23 20:11 | Emergency (ER) | payer MEDICARE, OTHER, MEDICAID, SELFPAY ==
--- NOTE | 2024-02-23 20:12 | CTR_ITS ---
PROCEDURE INFORMATION: Exam: CT Head Without Contrast Exam date and time: 02/23/2024 8:12 PM Age: 88 years old Clinical indication: Stroke-like symptoms; Speech disturbance; Additional info: Stroke alert TECHNIQUE: Imaging protocol: Computed tomography of the head without contrast. Radiation optimization: All CT scans at this facility use at least one of these dose optimization techniques: automated exposure control; mA and/or kV adjustment per patient size (includes targeted exams where dose is matched to clinical indication); or iterative reconstruction. Other technique: STROKE PROTOCOL was implemented. COMPARISON: CT head wo con* [id number] 12/10/2022 8:08 PM RADIATION DOSE METRICS: Total DLP (mGy-cm): 1059 FINDINGS: Brain: There is an acute parenchymal hemorrhage centered in the left basal ganglia region. The hemorrhage is rounded and measures 2.7 x 2.9 x 1.8 cm. The hemorrhage spares the external capsule and there is surrounding edema. Patchy chronic ischemic change can be seen throughout the periventricular white matter bilaterally. There is no evidence of midline shift. Cerebral ventricles: No ventriculomegaly. No midline shift. Paranasal sinuses: Visualized sinuses are unremarkable. No fluid levels. Mastoid air cells: Visualized mastoid air cells are well aerated. Bones: Unremarkable. No acute fracture. Soft tissues: Unremarkable. CT/CT head wo con* [id number] IMPRESSION: 1. 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 Chronic white matter ischemic changes noted ASSESSMENT: ASPECTS ([place] Stroke Program Early CT Score) is 9.
[2024-02-23 20:13] VITALS: BP 151/119; PULSE 91; RESP 16; TEMP 36.4; O2SAT 97; BMI 25.5
--- NOTE | 2024-02-23 20:13 | XRR_ITS ---
PROCEDURE INFORMATION: Exam: XR Chest Exam date and time: 02/23/2024 8:25 PM Age: 88 years old Clinical indication: Other: Stroke alert; Additional info: CVA TECHNIQUE: Imaging protocol: Radiologic exam of the chest. Views: 1 view. COMPARISON: CR XR chest 1V portable [id number] 02/04/2023 11:46 AM FINDINGS: Lungs: Both lungs demonstrate diffuse interstitial coarsening which is felt to be chronic. No lung mass or infiltrate. Pleural spaces: Unremarkable. No pleural effusion. No pneumothorax. Heart/Mediastinum: Unremarkable. No cardiomegaly. Bones/joints: Unremarkable. XR/XR chest 1V portable [id number] IMPRESSION: No acute findings.
--- NOTE | 2024-02-23 20:13 | ECG_ITS ---
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 Measurements Intervals [place] Rate: 91 P: 35 VA: 145 QRS: -55 QRSD: 84 T: 13 QT: 374 QTc: 460 Interpretive Statements SINUS RHYTHM PATTERN CONSISTENT WITH PULMONARY DISEASE POSSIBLE RIGHT VENTRICULAR CONDUCTION DELAY [RSR (QR) IN V1/V2] LEFT ANTERIOR FASCICULAR BLOCK [QRS AXIS <= -45, QR IN I, RS IN II] Compared to ECG 12/10/2022 20:52:14 Myocardial infarct finding no longer present Electronically Signed On 02-24-2024 17:32:33 CDT by Ayaka Gomez M.D. [id number]
--- NOTE | 2024-02-23 20:36 | PC.NURSE ---
Daughter Valeria contacted per request of Dr Moon; daughter stated that she was en route to hospital. Dr Moon gave patient daughter update on patient status.
[2024-02-23 20:39] LABS: Basophils # 0.1 10^3/uL (0.0-0.1); Basophils % 0.9 %; Eosinophils # 0.4 10^3/uL (0.0-0.8); Eosinophils % 4.1 %; Lymphocytes # 1.7 10^3/uL (0.8-4.8); Lymphocytes % 17.9 %; Mean Corpuscular HGB Conc 32.1 g/dL (30-55); Mean Corpuscular Hemoglobin 29.7 pg (27-33); Mean Corpuscular Volume 92.6 fl (85-98); Mean Platelet Volume 11.3 fL (7.4-10.4); Monocytes # 0.8 10^3/uL (0.2-0.9); Monocytes % 8.5 %; Neutrophils # 6.66 10^3/uL (1.8-7.7); Neutrophils % 68.4 %; Nucleated Red Blood Cells % 0 %; Platelet Count 192 10^3/cmm (157-399); Red Blood Count 4.21 10^6/uL (3.85-5.65); Red Cell Distribution Width 13.3 % (12.1-15.1); White Blood Count 9.74 10^3/uL (3.29-11.43)
[2024-02-23 20:42] LABS: Charge for UA Resulting for Rev
--- NOTE | 2024-02-23 20:43 | W.ED.NEUROSD ---
HPI - Neuro Symptoms/Deficit General: Chief Complaint: Neuro Symptoms/Deficit Stated Complaint: stroke Time Seen by Provider: 02/23/24 20:13 Source: patient and EMS Mode of arrival: EMS Limitations: no limitations and altered mental status History of Present Illness: 88-year-old female who is here from prison patient is typically ambulatory and verbal per EMS prison states had last seen her normal at 630 should when outside to smoke and when they checked on her room they found her down on the floor with right-sided facial droop right-sided weakness. Patient here is not moving her right side at all she is not talking or very responsive. No real signs of any head trauma here. Related Data Home Medications Medication Instructions Recorded Confirmed Lactobacillus acidophilus 100 mg PO QPM PRN Constipation 12/26/21 02/04/23 (Acidophilus capsule) acetaminophen 325 mg tablet 650 mg PO DAILY 12/26/21 02/04/23 bisacodyl 5 mg tablet,delayed 10 mg PO DAILY PRN Constipation 12/26/21 02/04/23 release clonazepam 1 mg tablet 1 mg PO QPM 12/26/21 02/04/23 hydrocodone 5 mg-acetaminophen 325 1 tab PO Q6H PRN Pain 12/26/21 02/04/23 mg tablet magnesium hydroxide 400 mg/5 mL 30 ml PO DAILY PRN Constipation 12/26/21 02/04/23 oral suspension (Milk of Magnesia) melatonin 1 mg tablet 1 mg PO QPM 12/26/21 02/04/23 mirtazapine 15 mg tablet (Remeron) 30 mg PO BEDTIME 12/26/21 02/04/23 omega-3 fatty acids 500 mg capsule 500 mg PO DAILY 12/26/21 02/04/23 pantoprazole 40 mg tablet,delayed 40 mg PO DAILY 12/26/21 02/04/23 release polyethylene glycol 3350 17 4 g PO DAILY 12/26/21 02/04/23 gram/dose oral powder (Miralax) docusate sodium 100 mg capsule 200 mg PO DAILY 11/28/22 02/04/23 (Colace) acetaminophen 325 mg capsule 325 mg PO Q4H PRN Pain 02/04/23 02/04/23 amlodipine 2.5 mg tablet 2.5 mg PO DAILY 02/04/23 02/04/23 atorvastatin 10 mg tablet 10 mg PO .BEDTIME 02/04/23 02/04/23 levothyroxine 50 mcg tablet 50 mcg PO DAILY 02/04/23 02/04/23 Previous Rx's Medication Instructions Recorded albuterol sulfate 90 mcg/actuation 2 inh inhalation Q8H PRN shortness 12/12/22 aerosol inhaler of breath or wheezing #6.7 grams apixaban 5 mg tablet (Eliquis) 5 mg PO BID #120 tabs 12/12/22 aspirin 81 mg tablet,delayed 81 mg PO DAILY #30 tabs 12/12/22 release levofloxacin 500 mg tablet 500 mg PO Q24H #10 tabs 02/04/23 Allergies Allergy/AdvReac Type Severity Reaction Status Date / Time cephalexin [From Keflex] Allergy Unknown Verified 02/23/24 20:22 codeine Allergy Unknown Verified 02/23/24 20:22 Review of Systems General: Reports: ROS unobtainable due to mental status PFSH ED PFSH: Medical History Metabolic encephalopathy Pulmonary embolism Dementia Hypothyroidism GERD (gastroesophageal reflux disease) Essential hypertension Insomnia Hyperlipidemia Vitamin D deficiency Bladder cancer Breast cancer TIA (transient ischemic attack) Altered mental status Medical history unknown Surgical History Surgical history unknown Social History Lives independently: No Housing: [facility] NIH stroke score NIHSS: Level Of Consciousness - 1a: 1 Level Of Consciousness Questions - 1b: Neither Correct Level Of Consciousness Commands - 1c: Neither Correct Best Gaze - 2: Normal Visual [place] - 3: No Visual Loss Facial Palsy - 4: Complete Paralysis Motor Arm Right - 5: No Movement Motor Arm Left - 5: Drift Motor Leg Right - 6: No Movement Motor Leg Left - 6: Drift Limb Ataxia - 7: Absent Sensory - 8: Normal Best Language - 9: Mute; Global Aphasia Dysarthia - 10: Severe Dysarthia Extinction And Inattention - 11: 0 Score: Total Score: 23 Physical Exam Const: COMMON NORMALS: negative for patient oriented x3 GENERAL APPEARANCE: ill appearing HENMT: COMMON NORMALS: normocephalic and atraumatic HEAD & SCALP: normocephalic and atraumatic Eye: COMMON NORMALS: EOMs intact bilaterally Neck/C-Spine: COMMON NORMALS: full ROM and supple Chest: COMMONS NORMALS: normal inspection of the chest Resp: COMMON NORMALS: normal respiratory effort, No retractions, No use of accessory muscles and clear to auscultation bilaterally AUSCULTATION: clear to auscultation bilaterally Cardio: COMMON NORMALS: regular rate, regular rhythm and No murmurs present (Cardio) RATE: regular rate RHYTHM: regular rhythm GI: COMMON NORMALS: Normal to inspection, nondistended, normoactive bowel sounds present, Soft to palpation, non-tender and no masses PALPATION: Yes Soft to palpation Extremity: COMMON NORMALS: normal to inspection and full ROM Neuro: COMMON NORMALS: negative for patient oriented x3 OTHER: Right-sided facial droop has right-sided paralysis as well. Patient is awake and will look at she is not able to answer any questions or following commands Psych: COMMON NORMALS: cooperative Skin: COMMON NORMALS: no rashes or lesions noted and no wounds GENERAL SKIN EXAM: no rashes or lesions noted Course Vital Signs: Vital signs: Vital Signs Temperature 97.5 F L 02/23/24 20:13 Pulse Rate 91 02/23/24 20:13 Respiratory Rate 16 02/23/24 20:13 Blood Pressure 151/119 02/23/24 20:13 Pulse Oximetry 97 02/23/24 20:13 Oxygen Delivery Me thod Room Air 02/23/24 20:13 MDM - Neuro Symptoms/Deficit Medical Decision Making Patient presents here with right-sided deficits was found to have an intraparenchymal hemorrhage on CT I did speak to neurology at [facility] did get patient adnexa here as she is on Eliquis will transfer to [facility] for higher level care for interventional. I did speak to family patient is DNR/DNI. Medical Records I reviewed the patient's medical records. Lab Data I reviewed the patient's lab results. 02/23/24 20:25 02/23/24 20:[address] 02/23/24 20:12 IMPRESSION: 1. 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 Chronic white matter ischemic changes noted ASSESSMENT: ASPECTS (Jael Stroke Program Early CT Score) is 9. ADDENDUM: 02/23/242039 COMMENT: THIS REPORT CONTAINS FINDINGS THAT MAY BE CRITICAL TO PATIENT CARE. As of 8:37 PM CDT on 02/23/2024. Sec Boaz Ratliff confirmed that [facility] has received the exam report, is aware of the critical finding, and indicated no conference call was necessary to discuss the exam findings. Chest X-Ray 02/23/24 20:13 IMPRESSION: No acute findings. Laboratory Results WBC 9.74 10^3/uL (3.29-11.43) 02/23/24 20:25 RBC 4.21 10^6/uL (3.85-5.65) 02/23/24 20:25 Hgb 12.50 g/dL (11.27-16.99) 02/23/24 20:25 Hct 39.0 % (36-47) 02/23/24 20: MCV 92.6 fl (85-98) 02/23/24 20: MCH 29.7 pg (27-33) 02/23/24 20: MCHC 32.1 g/dL (30-55) 02/23/24 20:25 RDW 13.3 % (12.1-15.1) 02/23/24 20: Plt Count 192 10^3/cmm (157-399) 02/23/24 20:25 MPV 11.3 fL (7.4-10.4) H 02/23/24 20:25 Neut % (Auto) 68.4 % 02/23/24 20:25 Lymph % (Auto) 17.9 % 02/23/24 20:25 [place] % (Auto) 8.5 % 02/23/24 20:25 Eos % (Auto) 4.1 % 02/23/24 20: Baso % (Auto) 0.9 % 02/23/24 20:25 Neut # (Auto) 6.66 10^3/uL (1.8-7.7) 02/23/24 20:25 Lymph # (Auto) 1.7 10^3/uL (0.8-4.8) 02/23/24 20: [place] # (Auto) 0.8 10^3/uL (0.2-0.9) 02/23/24 20:25 Eos # (Auto) 0.4 10^3/uL (0.0-0.8) 02/23/24 20: Baso # (Auto) 0.1 10^3/uL (0.0-0.1) 02/23/24 20:25 Nucleated RBC % (auto) 0 % 02/23/24 20:25 Nucleated RBCs # 0.0 /100WBC 02/23/24 20:25 PT 15.70 SECONDS (12.1-14.9) H 02/23/24 20:25 INR 1.21 (0.8-1.2) H 02/23/24 20:25 APTT 30.9 SECONDS (23.9-36.7) 02/23/24 20:25 Sodium 140 mmol/L (136-145) 02/23/24 20:25 Potassium 3.7 mmol/L (3.5-5.1) 02/23/24 20:25 Chloride 106 mmol/L (98-107) 02/23/24 20:25 Carbon Dioxide 21 mmol/L (22-29) L 02/23/24 20:25 Anion Gap 16.7 (5-19) 02/23/24 20:25 BUN 34 mg/dL (8-23) H 02/23/24 20:25 Creatinine 1.2 mg/dL (0.5-0.9) H 02/23/24 20:25 GFR Calculation Not Reportable 02/23/24 20:25 Glucose 128 mg/dL (65-115) H 02/23/24 20:25 Calculated Osmolality 299 mOsm/kg (285-295) H 02/23/24 20:25 Calcium 8.8 mg/dL (8.5-10.5) 02/23/24 20:25 Total Bilirubin 0.2 mg/dL (0.15-1.2) 02/23/24 20:25 AST 16 U/L (0-32) 02/23/24 20:25 ALT < 5 U/L (0-33) 02/23/24 20:25 Alkaline Phosphatase 103 U/L (35-105) 02/23/24 20:25 Total Protein 7.2 g/dL (6.6-8.7) 02/23/24 20:25 Albumin 3.6 g/dL (3.5-5.2) 02/23/24 20:25 Globulin 3.6 g/dL (1.3-4.6) 02/23/24 20:25 Urine Color Yellow (Yellow) 02/23/24 20:31 Urine Appearance Cloudy (CLEAR) A 02/23/24 20:31 Urine pH 7.5 (5-7) 02/23/24 20:31 Ur Specific [place] 1.011 (1.005-1.030) 02/23/24 20:31 Urine Protein 1+ (Negative) A 02/23/24 20:31 Urine Glucose (UA) Negative (Normal) 02/23/24 20:31 Urine Ketones Negative (Negative) 02/23/24 20:31 Urine Blood 1+ (Negative) A 02/23/24 20:31 Urine Nitrate Positive (Negative) A 02/23/24 20:31 Urine Bilirubin Negative (Negative) 02/23/24 20:31 Urine Urobilinogen 0.2 mg/dL (Negative) 02/23/24 20:31 Ur Leukocyte Esterase 3+ (Negative) A 02/23/24 20:31 Urine RBC 0-4 /hpf (0-2) H 02/23/24 20:31 Urine WBC 25-40 /hpf (0-5) H 02/23/24 20:31 Ur Squamous Epith Cells 0-4 /hpf (0-5) H 02/23/24 20:31 Amorphous Sediment 2+ /hpf 02/23/24 20:31 Urine Bacteria 2+ /hpf (NONE) H 02/23/24 20:31 Urine Opiates Screen Negative ng/mL (Negative) 02/23/24 20:31 Ur Barbiturates Screen Negative ng/mL (Negative) 02/23/24 20:31 Ur Phencyclidine Scrn Negative ng/mL (Negative) 02/23/24 20:31 Ur Amphetamines Screen Negative ng/mL (Negative) 02/23/24 20:31 U Benzodiazepines Scrn Negative ng/mL (Negative) 02/23/24 20:31 Urine Cocaine Screen Negative ng/mL (Negative) 02/23/24 20:31 U Marijuana (THC) Screen Negative ng/mL (Negative) 02/23/24 20:31 All radiology interpretation(s) finalized by discharge EKG Data EKG 1: I personally reviewed and interpreted this EKG as follows: EKG interpretation date: 02/23/24 EKG interpretation time: 20:23 Interpretation: nsr hr [address] elevation qrs 84 qtc 422 Critical Care Time Critical Care Time: Critical Care Time: Yes Total Critical Care Time: 40 Attestation: The high probability of a clinically significant, sudden or life threatening deterioration of the patient's neuro system(s) required my full and direct attention, intervention and personal management. The critical care time is as shown. This time is in addition to time spent performing any reported procedures but includes the following: [x] Data and vital sign review and interpretation [x] Patient assessment, examination and intervention [x] Documentation [x] Medication orders and management Discharge Plan Discharge Patient Disposition: Xfer Short-Term Hosp Clinical Impression: Intraparenchymal hemorrhage of brain Condition: Stable Referrals: Jose F Mai MD [Primary Care Provider] - Coding Level of Care Code ED Fiscal Officer for Miri Russell
[2024-02-23 20:45] LABS: Bilirubin Urine Negative (Negative); Blood Urine 1+ (Negative); Glucose Urine UA Negative (Normal); Ketones Urine Negative (Negative); Leukocyte Esterase Urine 3+ (Negative); Nitrate Urine Positive (Negative); Protein Urine 1+ (Negative); Specific Gravity, Urine 1.011 (1.005-1.030); Urine Appearance Cloudy (CLEAR); Urine Color Yellow (Yellow); Urobilinogen Urine 0.2 mg/dL (Negative); pH Urine 7.5 (5-7)
[2024-02-23 20:50] LABS: INR 1.21 (0.8-1.2)
[2024-02-23 20:51] LABS: Partial Thromboplastin Time 30.9 SECONDS (23.9-36.7)
[2024-02-23 20:52] LABS: Amphetamines Screen Urine Negative (Negative); Barbiturates Screen Urine Negative (Negative); Benzodiazepines Screen Urine Negative (Negative); Cocaine Screen Urine Negative (Negative); Opiate Screen Urine Negative (Negative); PCP Screen Urine Negative (Negative); THC Screen Urine Negative (Negative)
--- NOTE | 2024-02-23 20:52 | PC.NURSE ---
Spoke with Dr Moon regarding ordered Kcentra. Kcentra discontinued.
[2024-02-23 20:56] LABS: Alanine Aminotransferase < 5 U/L (0-33); Albumin Level 3.6 g/dL (3.5-5.2); Alkaline Phosphatase 103 U/L (35-105); Anion Gap 16.7 (5-19); Aspartate Amino Transferase 16 U/L (0-32); Blood Urea Nitrogen 34 mg/dL (8-23); Calcium 8.8 mg/dL (8.5-10.5); Carbon Dioxide 21 mmol/L (22-29); Chloride 106 mmol/L (98-107); Creatinine Clr Calc Pharmacy 30.0444; Globulin 3.6 g/dL (1.3-4.6); Glucose 128 mg/dL (65-115); Osmolality Calculated 299 mOsm/kg (285-295); Potassium 3.7 mmol/L (3.5-5.1); Sodium 140 mmol/L (136-145); Total Bilirubin 0.2 mg/dL (0.15-1.2); Total Protein 7.2 g/dL (6.6-8.7)
[2024-02-23 21:03] LABS: RBC Urine 0-4 /hpf (0-2)
[2024-02-23 21:04] LABS: Bacteria Urine 2+ /hpf; Squamous Epithelial Cell Urine 0-4 /hpf (0-5); WBC Urine 25-40 /hpf (0-5)
[2024-02-23 21:05] LABS: Add Urine Culture? Yes; Amorphous Sediment Urine 2+ /hpf
[2024-02-23] MEDS: nicardipine 20 MG/200 ML PREMIX 50 MG IV (21:18)
--- NOTE | 2024-02-23 21:18 | DCPLANNER ---
Called [facility] at 2055, spoke to Kyle. She called back at 2102, after weather check was completed, and said [facility] [address] with a 20 minute ETA.
[2024-02-23 21:21] VITALS: BP 159/117; PULSE 83; RESP 27; O2SAT 92
[2024-02-23 21:30] VITALS: BP 138/107; PULSE 87; RESP 28; O2SAT 92
[2024-02-23] MEDS: factor xa, inactivated-zhzo 800 MG in empty flexible container 1 EACH, non-DEHP filter ... 180 MG IV (21:35)
[2024-02-23 21:36] VITALS: BP 158/106; PULSE 88; RESP 18; O2SAT 93
[2024-02-23 21:45] VITALS: BP 141/100; PULSE 90; O2SAT 93
[2024-02-23] MEDS: factor xa, inactivated-zhzo 960 MG in empty flexible container 1 EACH, non-DEHP filter ... 48 MG IV (21:55)
--- NOTE | 2024-02-23 22:02 | PC.NURSE ---
This nurse spoke with Andrew from pharmacy. Andrew instructed nursing staff to stop bolus of Andexxa, and reduce maintenance dose of Andexxa from 8mg/min to 4mg/min as pharmacist learned upon rounding that patient was on lower dose of Eliquis than originally thought. Medication rate changed to correct dose per instruction of Andrew from pharmacy. [facility] team Raffi and Giovanni notified of change in medication dose as well.
[2024-02-23 22:13] VITALS: BP 141/100; PULSE 89; RESP 18; O2SAT 94
== END 2024-02-23 22:10 | disposition short-term general hospital (02) ==
PROVIDERS: Emergency Provider Emergency Medicine; PCP Pathology Anatomic Pathology & Clinical Pathology
DX: I61.8 Other nontraumatic intracerebral hemorrhage (principal); F03.90 Unspecified dementia, unspecified severity, without behavioral disturbance, psychotic disturbance, mood disturbance, and anxiety; I10 Essential (primary) hypertension; E78.5 Hyperlipidemia, unspecified; Z85.3 Personal history of malignant neoplasm of breast; Z85.51 Personal history of malignant neoplasm of bladder; Z86.73 Personal history of transient ischemic attack (TIA), and cerebral infarction without residual deficits; Z86.711 Personal history of pulmonary embolism
CPT/HCPCS: 70450; 71045; 80053; 80306; 81003; 81015; 85025; 85610; 85730; 87077; 87086; 87186; 93005; 96374; 99285; A4222; J7169